=== PATIENT | male | born 1955 | race Caucasian/White ===

== ENCOUNTER 2016-12-13 09:03 | Emergency (ER) | payer OTHER ==
[~2016-12-13] VITALS: Ht 157.5 cm; Wt 135.7 kg
[~2016-12-13 09:03] MED LIST: ACET-1256 PO; ASCO500T3 PO; ASPEC325 PO; BUME2TAB3 PO; CALC600T68 PO; CARV3.122 PO; CHOL1000 PO; GLC/500 PO; HYDR-5688 PO; INSU1INJ16 SC; INSUINJ SC; LOSA50TA54 PO; METO5TAB25 PO; MULTTAB58 PO; PRIM50TA29 PO; SIMV40TA4 PO; SPIR25TA89 PO
[2016-12-13 09:12] VITALS: Ht 157.5 cm; Wt 135.7 kg
--- NOTE | 2016-12-13 09:52 | EMERGENCY ROOM VISIT NOTE ---
History Report prepared by Ramya: Cintia Callahan Under the Supervision of: Dr. Billy Reeves M.D. First contact with patient: 09:27 Chief Complaint: SHORTNESS OF BREATH Stated Complaint: PAIN AROUND PACEMAKER,SOB Nursing Triage Summary: Triage note: Pt reports since yesterday he has been short of breath. Pt reports intermittent chest heaviness x 1 week. History of Present Illness The patient is a 61 year old male who presents to the Emergency Room with complaints of intermittent left sided chest pain that began one week ago. He currently rates his discomfort as a 3/10 in severity and intermittently describes it as a heaviness and shooting pain. The patient states that he has a defibrillator and states that his pain is localized under his defibrillator. He states that when he burps or passes gas, his pain is slightly alleviated. The patient additionally associates shortness of breath intermittently that began this morning. He states that with the shortness of breath he has been experiencing neck pain. The patient states that he has been experiencing shakes , but denies any history of heavy drinking. He denies any recent weight gain, nausea, vomiting, headache, increased leg swelling, loss of consciousness, or heart palpitations. The patient states that he takes aspirin daily. He notes a history of high cholesterol, ischemic cardiomyopathy, hypertension, congestive heart failure, diabetes, pacemaker, a previous AR, previous heart catheterization, and a heart ablation. He denies taking anything for his discomfort. The patient denies any exposure to strange chemicals. He denies any personal or family history of blood clots and additionally denies any recent long travel. The patient denies his ICD firing recently. Source of History: patient Onset: one week ago Position: chest (left) Symptom Intensity: 3/10 Quality: other (heaviness, shooting) Timing: intermittent Modifying Factors (Relieving): other (burping or passing gas) Associated Symptoms: + SOB, + neck pain, No LOC, No headache, No nausea, No vomiting Review of Systems See HPI for pertinent positives & negatives. A total of 10 systems reviewed and were otherwise negative. Past Medical & Surgical Medical Problems: (1) Congestive heart failure (2) Diabetes (3) High cholesterol (4) Hypertension (5) Ischemic cardiomyopathy (6) Myocardial infarction Surgical Problems: (1) H/O cardiac catheterization (2) H/O cardiac radiofrequency ablation Family History FHx: cancer FHx: heart disease Hypertension Social History Smoking Status: Never Smoker Marital Status: Housing Status: lives with significant other Occupation Status: disabled Current/Historical Medications Scheduled Ascorbic Acid (Vitamin C), 1,000 MG PO DAILY Bumetanide (Bumex), 1 TAB PO TID Calcium Carbonate-Vitamin D (Calcium-Carb 600 + D), 1 TAB PO DAILY Carvedilol (Coreg), 1 TAB PO BID Cholecalciferol (Vitamin D3), 1 TAB PO DAILY Insulin Nph (Humulin-N), 55-60 UNITS SC TID Insulin Regular (Human) (Novolin R Relion), 10 UNITS SC TID Losartan Potassium (Cozaar), 50 MG PO DAILY Metformin Hcl (Glucophage), 500 MG PO BIDM Metolazone (Zaroxolyn), 5 MG PO DAILY Multiple Vitamin (Multivitamin), 1 TAB PO DAILY Primidone (Mysoline), 25 MG PO QPM Simvastatin (Zocor), 40 MG PO DAILY Spironolactone (Aldactone), 25 MG PO DAILY Scheduled PRN Acetaminophen (Tylenol), 500 MG PO BID PRN for prn Hydrocodone/Acetaminophen 5MG/325MG ([place] 5MG/325MG), 1 TABLET PO BID PRN for Pain Miscellaneous Medications Aspirin (Aspirin) Allergies Coded Allergies: Lisinopril (Unverified Allergy, Unknown, cough, 12/13/16) Physical Exam Vital Signs Date Time Temp Pulse Resp B/P Pulse Ox O2 Delivery O2 Flow Rate FiO2 12/13/16 12:36 36.6 94 20 139/90 94 12/13/16 11:20 89 18 139/90 95 Room Air 12/13/16 10:30 92 20 110/68 92 Room Air 12/13/16 09:50 91 12/13/16 09:12 36.6 89 20 149/77 94 Room Air Physical Exam GENERAL: Patient is in minimal distress, overweight. HEENT: No acute trauma, normocephalic atraumatic, mucous membranes moist, no nasal congestion, no scleral icterus. NECK: No stridor, no adenopathy, no meningismus, trachea is midline. LUNGS: Crackles at the bases of lungs. No dyspnea. No wheeze, no rhonchi. HEART: Regular rate and rhythm. No murmurs, rubs, gallops appreciated. ABDOMEN: Soft, nontender, bowel sounds positive, no masses appreciated, no peritonitis. BACK: No midline tenderness, no CVA tenderness EXTREMITIES: Normal motion all extremities, no cyanosis, no edema. NEUROLOGIC: Alert and oriented, no acute motor or sensory deficits, no focal weakness, cranial nerves grossly intact. SKIN: No rash, no jaundice, no diaphoresis. Medical Decision & Procedures ER Provider Diagnostic Interpretation: X ray results and stated below per my interpretation and radiologist interpretation. Other radiology results and stated below per my review and radiologist interpretation: CHEST ONE VIEW PORTABLE CLINICAL HISTORY: Chest pain. COMPARISON STUDY: Chest radiograph October 02, 2010. FINDINGS: A single lead left subclavian pacer/AICD is in place. There is no pneumothorax. No definite pleural effusion is identified. This study is compromised by suboptimal penetration. Moderate cardiomegaly is noted. There is no evidence for pulmonary edema. There is possible left lower lobe opacity. IMPRESSION: 1. Moderate cardiomegaly. No radiographic evidence of pulmonary edema. 2. Possible left lower lobe opacity. Short-term follow-up PA and lateral chest radiographs are recommended. Electronically signed by: Chinedu Kitchen M.D. 12/13/2016 10:26 AM Dictated Date/Time: 12/13/2016 10:[address] ANGIOGRAM OF THE CHEST CLINICAL HISTORY: Atypical chest pain. COMPARISON STUDY: Chest radiograph dated 12/13/2016. Abdominal CT dated 09/13/2014. TECHNIQUE: Following the IV administration of 118 cc of Optiray 320, CT angiogram of the chest was performed from the upper abdomen to the thoracic inlet utilizing the pulmonary embolus protocol. Images are reviewed in the axial, sagittal, and coronal planes. 3-D MIPS images are created and assessed. IV contrast was administered without complication. The examination is degraded by large body habitus, and by streak artifact from the body wall abutting the CT gantry. CT DOSE: 845.19 mGy.cm FINDINGS: Thyroid: Imaged portions of the thyroid gland are normal in size and attenuation. Thoracic aorta: There is mild atherosclerotic calcification of the thoracic aorta, which is normal in caliber and demonstrates standard 3-vessel arch anatomy. No dissection is seen. Pulmonary vasculature: The pulmonary trunk is normal in caliber. There are no filling defects identified in main, lobar, or segmental pulmonary branches to suggest pulmonary embolus. Heart: A single lead AICD is present in the left chest wall. The lead terminates in the right ventricle. The heart is enlarged and without pericardial effusion. The coronary arteries are densely calcified. Lungs and pleural spaces: Evaluation of the lung parenchyma is degraded by heart motion artifact. A small fat-containing Bochdalek hernia is noted at the right lung base. Dependent atelectasis is observed. Mild emphysematous change is identified. There is a 6 mm pleural-based nodule in the anterior left upper lobe seen on image #186. A 3 mm nodule in the right middle lobe seen on image #135 is unchanged in [address] Atelectasis versus scarring is present in the right middle lobe and lingula. Trachea and central airways are clear. Mediastinum: There is no mediastinal lymphadenopathy. Queenie: Clear. Axillae: There is no axillary lymphadenopathy. Upper abdomen: A small hiatal hernia is identified. The liver is enlarged and steatotic. The spleen is mildly enlarged measuring 13.7 cm in length. There is unchanged appearance of a 3.9 cm right adrenal nodule which contains components of macroscopic fat as compared to the [address] scan. Gynecomastia is noted. Skeletal structures: No lytic or blastic bony lesions are seen. Mild degenerative changes noted throughout the thoracic spine and in the shoulders. IMPRESSION: 1. There is no evidence of pulmonary embolus in the main, lobar, or segmental pulmonary arteries. 2. Cardiomegaly and AICD. 3. Emphysema. 4. There is no airspace consolidation or pleural effusion. 5. There is a 6 mm pleural-based nodule in the left upper lobe. This is pathologically indeterminant but low suspicion. Follow-up as per the Fleischner criteria. See below. 6. Hepatic steatosis and mild splenomegaly. 7. A 3.9 cm adrenal right adrenal nodule containing foci of macroscopic fat has not appreciably changed from the 09/13/2014 examination. 8. Additional findings as above. Please refer to below summary of Fleischner criteria recommendations for follow-up of incidental CT nodules (Susan To, Guidelines for management of small pulmonary nodules detected on CT scans: A statement from the Fleischner Society, Radiology 237: [phone].) Low Risk Patient: Minimal or no smoking or other known risk factors for malignancy <=4 mm: No follow-up needed. >4-6 mm: Initial follow-up CT at 12 months; if unchanged, no further follow-up. >6-8 mm: Initial follow-up CT at 6-12 months then at 18-24 months if no change. >8 mm: Follow-up CT at \R\3, 9, 24 months, or PET and/or biopsy. High Risk Patient: History of smoking or other known risk factors <=4 mm: Follow-up at 12 months; if unchanged, no further follow-up. >4-6 mm: Initial follow-up CT at 6-12 months then at 18-24 months if no change. >6-8 mm: Initial follow-up CT at 3-6 months then at 9-12 and 24 months if no change. >8 mm: Same as low risk patient. Note: Nodule size measured as average of length and width. Ground glass or partly solid nodules may require longer follow-up to exclude indolent adenocarcinoma. Electronically signed by: Williams Beavers M.D. 12/13/2016 11:17 AM Dictated Date/Time: 12/13/2016 11:09 AM Laboratory Results 12/13/16 09:45 Red Blood Count 5.16, Mean Corpuscular Volume 92.8, Mean Corpuscular Hemoglobin 32.2, Mean Corpuscular Hemoglobin Concent 34.7, Mean Platelet Volume 9.6, Neutrophils (%) (Auto) 66.9, Lymphocytes (%) (Auto) 19.1, Monocytes (%) (Auto) 11.6, Eosinophils (%) (Auto) 2.0, Basophils (%) (Auto) 0.1, Neutrophils # (Auto ) 5.26, Lymphocytes # (Auto) 1.50, Monocytes # (Auto) 0.91, Eosinophils # (Auto ) 0.16, Basophils # (Auto) 0.01 12/13/16 09:45 Test 12/13/16 09:45 12/13/16 11:32 White Blood Count 7.86 K/uL (4.8-10.8) Red Blood Count 5.16 M/uL (4.7-6.1) Hemoglobin 16.6 g/dL (14.0-18.0) Hematocrit 47.9 % (42-52) Mean Corpuscular Volume 92.8 fL (80-100) Mean Corpuscular Hemoglobin 32.2 pg (25-34) Mean Corpuscular Hemoglobin Concent 34.7 g/dl (32-36) Platelet Count 187 K/uL (130-400) Mean Platelet Volume 9.6 fL (7.4-10.4) Neutrophils (%) (Auto) 66.9 % Lymphocytes (%) (Auto) 19.1 % Monocytes (%) (Auto) 11.6 % Eosinophils (%) (Auto) 2.0 % Basophils (%) (Auto) 0.1 % Neutrophils # (Auto) 5.26 K/uL (1.4-6.5) Lymphocytes # (Auto) 1.50 K/uL (1.2-3.4) Monocytes # (Auto) 0.91 K/uL (0.11-0.59) Eosinophils # (Auto) 0.16 K/uL (0-0.5) Basophils # (Auto) 0.01 K/uL (0-0.2) RDW Standard Deviation 47.0 fL (36.4-46.3) RDW Coefficient of Variation 13.9 % (11.5-14.5) Immature Granulocyte % (Auto) 0.3 % Immature Granulocyte # (Auto) 0.02 K/uL (0.00-0.02) D-Dimer 940 ug/L FEU (0-500) Anion Gap 9.0 mmol/L (3-11) Est Creatinine Clear Calc Drug Dose 75.3 ml/min Estimated GFR () 69.2 Estimated GFR (Non- 59.7 BUN/Creatinine Ratio 19.5 (10-20) Calcium Level 8.9 mg/dl (8.5-10.1) Total Creatine Kinase 120 U/L (39-308) Creatine Kinase MB 0.9 ng/ml (0.5-3.6) Creatine Kinase MB Ratio 0.8 (0-3.0) Troponin I < 0.015 ng/ml (0-0.045) Beta-Hydroxybutyric Acid 4.04 mg/dL (0.2-2.81) Bedside Troponin I 0.000 ng/ml (0-0.045) Laboratory results as reviewed by me. Medications Administered Medications (Trade) Dose Ordered Sig/Emerson Route Start Time Stop Time Status Last Admin Dose Admin Sodium Chloride (Nss 500ml) 500 ml @ 999 mls/hr Q31M STAT IV 12/13/16 10:31 12/13/16 11:01 DC 12/13/16 10:31 999 MLS/HR ECG Indication: chest pain Rate (beats per minute): 92 Rhythm: normal sinus Findings: no acute ischemic change, no ectopy ED Course 0930: The patient was evaluated in room B9. A complete history and physical exam was performed. 1031: Ordered Sodium Chloride 500 ml @ 999 mls/hr IV. I reevaluated the patient and discussed the exam findings so far with him. He is agreeable to get the chest CT. 1121: I reevaluated the patient and he is not interested in staying in the hospital. He is agreeable to have a repeat troponin. 1220: I reevaluated the patient and he is resting comfortably. I discussed the exam findings with him and I discussed the treatment plan. He verbalized complete understanding and agreement. he is ready to go home. Medical Decision Differential: Cardiac Ischemia (STEMI, NSTEMI, Unstable Angina, etc), Aortic Dissection, Arrhythmia, Pulmonary Embolism, Pneumonia, Pneumothorax, MSK, Infectious, Pericarditis/Myocarditis, Esophageal Rupture, Gastrointestinal, amongst other pathologies entertained. 61 yr old male arrives with complaint of chest pain and shob. He notes sent by PCP due to not being able to get in for appointment. EKG without acute ischemia and trop x 2 negative. He has mild elevated dimer thus CT PE study which was negative for acute PE. Denying pain currently. He has multiple CAD risk factors that should probably result in him being brought in to hospital for extended cardiac rule out. Patient not interested in staying in hospital. I cautioned him that I could not rule out CAD and that he could have AR at home. He still wishes to go home and follow up with PCP. RTED if worsening or call 911. Stressed importance of PCP. Impression Primary Impression: Left sided chest pain Scribe Attestation The scribe's documentation has been prepared under my direction and personally reviewed by me in its entirety. I confirm that the note above accurately reflects all work, treatment, procedures, and medical decision making performed by me. Departure Information Dispostion Home / Self-Care Referrals Ravindra Fraga M.D. (PCP) Forms HOME CARE DOCUMENTATION FORM, IMPORTANT VISIT INFORMATION Patient Instructions Chest Pain - [facility], [place], My [facility] Additional Instructions Please follow up with your primary care provider in the next 24 hours. Return immediately if worsening symptoms or other concerns.
[2016-12-13 09:55] LABS: BASO % 0.1 %; BASO ABS # 0.01 K/uL (0-0.2); COMPLETE YES; HEMATOCRIT 47.9 % (42-52); IG% 0.3 %; LYMPH % 19.1 %; MEAN CELL VOLUME 92.8 fL (80-100); MEAN CORPUSCULAR HEMOGLOBIN 32.2 pg (25-34); MEAN CORPUSCULAR HGB CONC 34.7 g/dl (32-36); MEAN PLATELET VOLUME 9.6 fL (7.4-10.4); MONO % 11.6 %; NEUT % 66.9 %; PLATELET COUNT 187 K/uL (130-400); RED BLOOD COUNT 5.16 M/uL (4.7-6.1); WHITE BLOOD COUNT 7.86 K/uL (4.8-10.8)
[2016-12-13] MEDS ORDERED: ASPI325T45 PO (10:04)
[2016-12-13 10:11] LABS: BLOOD UREA NITROGEN 25 mg/dl (7-18); BUN/CREATININE RATIO 19.5 (10-20); CALCIUM 8.9 mg/dl (8.5-10.1); CARBON DIOXIDE 28 mmol/L (21-32); CHLORIDE 100 mmol/L (98-107); GLUCOSE 303 mg/dl (70-99); POTASSIUM 4.6 mmol/L (3.5-5.1); SODIUM 137 mmol/L (136-145)
[2016-12-13 10:21] LABS: BETA-HYDROXYBUTYRATE 4.04 mg/dL (0.2-2.81); CKMB/CK RATIO 0.8 (0-3.0)
--- NOTE | 2016-12-13 10:27 | DIAGNOSTIC IMAGING REPORT ---
CHEST ONE VIEW PORTABLE CLINICAL HISTORY: Chest pain. COMPARISON STUDY: Chest radiograph October 02, 2010. FINDINGS: A single lead left subclavian pacer/AICD is in place. There is no pneumothorax. No definite pleural effusion is identified. This study is compromised by suboptimal penetration. Moderate cardiomegaly is noted. There is no evidence for pulmonary edema. There is possible left lower lobe opacity. IMPRESSION: 1. Moderate cardiomegaly. No radiographic evidence of pulmonary edema. 2. Possible left lower lobe opacity. Short-term follow-up PA and lateral chest radiographs are recommended. Electronically signed by: Chinedu Kitchen M.D. 12/13/2016 10:26 AM Dictated Date/Time: 12/13/2016 10:24 AM
[2016-12-13] MEDS ORDERED: SODIUM CHLORIDE 0.9% 500ML 500 ML IV STA (10:31)
[2016-12-13] MEDS ORDERED: OPTIRAY 320 IV PRN (10:45)
--- NOTE | 2016-12-13 11:18 | DIAGNOSTIC IMAGING REPORT ---
CT ANGIOGRAM OF THE CHEST CLINICAL HISTORY: Atypical chest pain. COMPARISON STUDY: Chest radiograph dated 12/13/2016. Abdominal CT dated 09/13/2014. TECHNIQUE: Following the IV administration of 118 cc of Optiray 320, CT angiogram of the chest was performed from the upper abdomen to the thoracic inlet utilizing the pulmonary embolus protocol. Images are reviewed in the axial, sagittal, and coronal planes. 3-D MIPS images are created and assessed. IV contrast was administered without complication. The examination is degraded by large body habitus, and by streak artifact from the body wall abutting the CT gantry. CT DOSE: 845.19 mGy.cm FINDINGS: Thyroid: Imaged portions of the thyroid gland are normal in size and attenuation. Thoracic aorta: There is mild atherosclerotic calcification of the thoracic aorta, which is normal in caliber and demonstrates standard 3-vessel arch anatomy. No dissection is seen. Pulmonary vasculature: The pulmonary trunk is normal in caliber. There are no filling defects identified in main, lobar, or segmental pulmonary branches to suggest pulmonary embolus. Heart: A single lead AICD is present in the left chest wall. The lead terminates in the right ventricle. The heart is enlarged and without pericardial effusion. The coronary arteries are densely calcified. Lungs and pleural spaces: Evaluation of the lung parenchyma is degraded by heart motion artifact. A small fat-containing Bochdalek hernia is noted at the right lung base. Dependent atelectasis is observed. Mild emphysematous change is identified. There is a 6 mm pleural-based nodule in the anterior left upper lobe seen on image #186. A 3 mm nodule in the right middle lobe seen on image #135 is unchanged in [address] Atelectasis versus scarring is present in the right middle lobe and lingula. Trachea and central airways are clear. Mediastinum: There is no mediastinal lymphadenopathy. Queenie: Clear. Axillae: There is no axillary lymphadenopathy. Upper abdomen: A small hiatal hernia is identified. The liver is enlarged and steatotic. The spleen is mildly enlarged measuring 13.7 cm in length. There is unchanged appearance of a 3.9 cm right adrenal nodule which contains components of macroscopic fat as compared to the [address] scan. Gynecomastia is noted. Skeletal structures: No lytic or blastic bony lesions are seen. Mild degenerative changes noted throughout the thoracic spine and in the shoulders. IMPRESSION: 1. There is no evidence of pulmonary embolus in the main, lobar, or segmental pulmonary arteries. 2. Cardiomegaly and AICD. 3. Emphysema. 4. There is no airspace consolidation or pleural effusion. 5. There is a 6 mm pleural-based nodule in the left upper lobe. This is pathologically indeterminant but low suspicion. Follow-up as per the Fleischner criteria. See below. 6. Hepatic steatosis and mild splenomegaly. 7. A 3.9 cm adrenal right adrenal nodule containing foci of macroscopic fat has not appreciably changed from the 09/13/2014 examination. 8. Additional findings as above. Please refer to below summary of Fleischner criteria recommendations for follow-up of incidental CT nodules (Susan To, Guidelines for management of small pulmonary nodules detected on CT scans: A statement from the Fleischner Society, Radiology 237: [phone].) Low Risk Patient: Minimal or no smoking or other known risk factors for malignancy <=4 mm: No follow-up needed. >4-6 mm: Initial follow-up CT at 12 months; if unchanged, no further follow-up. >6-8 mm: Initial follow-up CT at 6-12 months then at 18-24 months if no change. >8 mm: Follow-up CT at \R\3, 9, 24 months, or PET and/or biopsy. High Risk Patient: History of smoking or other known risk factors <=4 mm: Follow-up at 12 months; if unchanged, no further follow-up. >4-6 mm: Initial follow-up CT at 6-12 months then at 18-24 months if no change. >6-8 mm: Initial follow-up CT at 3-6 months then at 9-12 and 24 months if no change. >8 mm: Same as low risk patient. Note: Nodule size measured as average of length and width. Ground glass or partly solid nodules may require longer follow-up to exclude indolent adenocarcinoma. Electronically signed by: Williams Beavers M.D. 12/13/2016 11:17 AM Dictated Date/Time: 12/13/2016 11:09 AM
[2016-12-13 12:36] VITALS: BP 139/90; PULSE 94; TEMP 36.6; O2SAT 94
[2017-03-09] MEDS ORDERED: CARV12.52 PO (12:53)
== END 2016-12-13 12:38 | disposition home or self-care (01) ==
LOC: C.EDB 09:05
DX: R07.9 Chest pain, unspecified (principal); I50.9 Heart failure, unspecified; I25.2 Old myocardial infarction; E11.9 Type 2 diabetes mellitus without complications; E78.00 Pure hypercholesterolemia, unspecified; I10 Essential (primary) hypertension; I25.5 Ischemic cardiomyopathy; Z95.810 Presence of automatic (implantable) cardiac defibrillator; Z79.4 Long term (current) use of insulin; Z79.899 Other long term (current) drug therapy

== ENCOUNTER 2016-12-27 10:54 | Emergency (ER) | payer OTHER ==
[~2016-12-27] VITALS: Ht 157.5 cm; Wt 130.0 kg
[~2016-12-27 10:54] MED LIST changes: -ASPEC325 PO; +ASPI325T45 PO
[2016-12-27 11:00] VITALS: TEMP 36.6; Ht 157.5 cm; Wt 130.0 kg
[2016-12-27] MEDS ORDERED: SODIUM CHLORIDE 0.9% 1000ML 1,000 ML IV STA (11:37)
--- NOTE | 2016-12-27 11:39 | EMERGENCY ROOM VISIT NOTE ---
History Report prepared by Ramya: Bradley Gomez Under the Supervision of: Dr. Anibal Laughlin D.O. First contact with patient: 11:06 Chief Complaint: ABDOMINAL PAIN Stated Complaint: ABD PAIN Nursing Triage Summary: lower abd pain for 2 days History of Present Illness The patient is a 61 year old male who presents to the Emergency Room with complaints of persistent lower abdominal pain for the past week. The pain is cramping nature. He also complains of intermittent sharp left lower abdominal pain. The patient has been constipated for three weeks. The patient saw his PCP one week ago and was started on MiraLAX. He has been eating and drinking okay. The patient has a prescription for pain medications which he hasn't taken in one month. The patient has never had constipation like this before. The patient denies fevers, chills, chest pain, nausea, vomiting, or blood in his stools. The patient denies eating any abnormal foods recently. The patient had a colonoscopy with Liam 3-4 years ago. He has never been diagnosed with diverticulitis. The patient still has his gallbladder and appendix. He has a history of diabetes and hypertension and also has a cardiac defibrillator. Source of History: patient Onset: one week Position: abdomen (lower) Quality: cramping Timing: other (persistent) Associated Symptoms: No chest pain, No chills, No fevers, No hematochezia, No nausea, No vomiting Note: Positive constipation. Review of Systems See HPI for pertinent positives & negatives. A total of 10 systems reviewed and were otherwise negative. Past Medical & Surgical Medical Problems: (1) Congestive heart failure (2) Diabetes (3) High cholesterol (4) Hypertension (5) Ischemic cardiomyopathy (6) Myocardial infarction Surgical Problems: (1) H/O cardiac catheterization (2) H/O cardiac radiofrequency ablation Family History FHx: cancer FHx: heart disease Hypertension Social History Smoking Status: Former Smoker Marital Status: Housing Status: lives with significant other Occupation Status: disabled Current/Historical Medications Scheduled Amoxicillin & Pot Clavulanate (Augmentin 875-125 mg), 875 MG PO BID Ascorbic Acid (Vitamin C), 1,000 MG PO DAILY Aspirin (Aspirin), 1 TAB PO DAILY Bumetanide (Bumex), 1 TAB PO DAILY Calcium Carbonate-Vitamin D (Calcium-Carb 600 + D), 1 TAB PO DAILY Carvedilol (Coreg), 1 TAB PO BID Cholecalciferol (Vitamin D3), 1 TAB PO DAILY Insulin Human NPH (Humulin N), 50 UNITS SQ BID Insulin Regular (Human) (Novolin R Relion), 30 UNITS SC BID Losartan Potassium (Cozaar), 50 MG PO DAILY Metformin Hcl (Glucophage), 500 MG PO BIDM Metolazone (Zaroxolyn), 5 MG PO DAILY Multiple Vitamin (Multivitamin), 1 TAB PO DAILY Pantoprazole (Protonix), 40 MG PO BID Primidone (Mysoline), 25 MG PO QPM Simvastatin (Zocor), 40 MG PO DAILY Spironolactone (Aldactone), 25 MG PO DAILY Scheduled PRN Acetaminophen (Tylenol), 500 MG PO BID PRN for prn Hydrocodone/Acetaminophen 5MG/325MG (Muddy 5MG/325MG), 1 TABLET PO BID PRN for Pain Allergies Coded Allergies: Lisinopril (Unverified Allergy, Unknown, cough, 12/27/16) Physical Exam Vital Signs Date Time Temp Pulse Resp B/P Pulse Ox O2 Delivery O2 Flow Rate FiO2 12/27/16 13:14 87 18 124/75 95 12/27/16 12:52 93 15 115/71 97 Room Air 12/27/16 11:00 36.6 92 16 148/86 96 Room Air Physical Exam GENERAL: Patient is awake, alert, and in no acute distress. Patient is resting comfortably and showing no signs of anxiety EYES: The conjunctivae are clear. The pupils are round and reactive. EARS, NOSE, MOUTH AND THROAT: The nose is without any evidence of any deformity. Mucous membranes are moist tongue is midline NECK: The neck is nontender and supple. RESPIRATORY: Normal respiratory effort is noted there is no evidence of wheezing rhonchi or rales CARDIOVASCULAR: Regular rate and rhythm noted there no murmurs rubs or gallops normal S1 normal S2 GASTROINTESTINAL: The abdomen is moderately distended but soft. Left lower quadrant tenderness to palpation, no guarding or rigidity noted. No inguinal masses were noted. MUSCULOSKELETAL/EXTREMITIES: There is no evidence of gross deformity full range of motion is noted in the hips and shoulders SKIN: There is no obvious evidence of any rash. There are no petechiae, pallor or cyanosis noted. NEUROLOGIC: Patient is awake alert and oriented x3, Medical Decision & Procedures ER Provider Diagnostic Interpretation: X-ray results as stated below per interpretation by me and the radiologist. ABDOMEN 2VIEW W/PA CHEST RTN CLINICAL HISTORY: Lower abdominal pain COMPARISON STUDY: Chest x-ray dated 12/13/2016 FINDINGS: The heart is enlarged. There is a left subclavian pacer/defibrillator present. There is no focal pulmonary consolidation. There is no free air. Erect and supine views the abdomen reveal no abnormally dilated loops of large or small bowel. There are scattered stool present throughout the colon. IMPRESSION: No evidence of bowel obstruction. No evidence of free air. Electronically signed by: Isreal Toth M.D. 12/27/2016 12:22 PM Dictated Date/Time: 12/27/2016 12:21 PM Laboratory Results 12/27/16 11:50 Red Blood Count 4.93, Mean Corpuscular Volume 89.7, Mean Corpuscular Hemoglobin 31.2, Mean Corpuscular Hemoglobin Concent 34.8, Mean Platelet Volume 9.2, Neutrophils (%) (Auto) 68.8, Lymphocytes (%) (Auto) 22.5, Monocytes (%) (Auto) 6.6, Eosinophils (%) (Auto) 1.7, Basophils (%) (Auto) 0.2, Neutrophils # (Auto) 6.34, Lymphocytes # (Auto) 2.08, Monocytes # (Auto) 0.61, Eosinophils # (Auto) 0.16, Basophils # (Auto) 0.02 12/27/16 11:50 Test 12/27/16 11:45 12/27/16 11:50 Urine Color YELLOW Urine Appearance CLEAR (CLEAR) Urine pH 5.5 (4.5-7.5) Urine Specific [place] 1.002 (1.000-1.030) Urine Protein NEG (NEG) Urine Glucose (UA) 1+ (NEG) Urine Ketones NEG (NEG) Urine Occult Blood NEG (NEG) Urine Nitrite NEG (NEG) Urine Bilirubin NEG (NEG) Urine Urobilinogen NEG (NEG) Urine Leukocyte Esterase NEG (NEG) White Blood Count 9.23 K/uL (4.8-10.8) Red Blood Count 4.93 M/uL (4.7-6.1) Hemoglobin 15.4 g/dL (14.0-18.0) Hematocrit 44.2 % (42-52) Mean Corpuscular Volume 89.7 fL (80-100) Mean Corpuscular Hemoglobin 31.2 pg (25-34) Mean Corpuscular Hemoglobin Concent 34.8 g/dl (32-36) Platelet Count 226 K/uL (130-400) Mean Platelet Volume 9.2 fL (7.4-10.4) Neutrophils (%) (Auto) 68.8 % Lymphocytes (%) (Auto) 22.5 % Monocytes (%) (Auto) 6.6 % Eosinophils (%) (Auto) 1.7 % Basophils (%) (Auto) 0.2 % Neutrophils # (Auto) 6.34 K/uL (1.4-6.5) Lymphocytes # (Auto) 2.08 K/uL (1.2-3.4) Monocytes # (Auto) 0.61 K/uL (0.11-0.59) Eosinophils # (Auto) 0.16 K/uL (0-0.5) Basophils # (Auto) 0.02 K/uL (0-0.2) RDW Standard Deviation 44.4 fL (36.4-46.3) RDW Coefficient of Variation 13.5 % (11.5-14.5) Immature Granulocyte % (Auto) 0.2 % Immature Granulocyte # (Auto) 0.02 K/uL (0.00-0.02) Anion Gap 10.0 mmol/L (3-11) Est Creatinine Clear Calc Drug Dose 73.4 ml/min Estimated GFR () 69.2 Estimated GFR (Non- 59.7 BUN/Creatinine Ratio 13.2 (10-20) Calcium Level 8.7 mg/dl (8.5-10.1) Total Bilirubin 0.6 mg/dl (0.2-1) Direct Bilirubin 0.2 mg/dl (0-0.2) Aspartate Amino Transf (AST/SGOT) 13 U/L (15-37) Alanine Aminotransferase (ALT/SGPT) 19 U/L (12-78) Alkaline Phosphatase 108 U/L (45-117) Total Protein 7.5 gm/dl (6.4-8.2) Albumin 3.2 gm/dl (3.4-5.0) Lipase 61 U/L (73-393) Laboratory results per my review. Medications Administered Medications (Trade) Dose Ordered Sig/[place] Route Start Time Stop Time Status Last Admin Dose Admin Sodium Chloride (Nss 1000ml) 1,000 ml @ 999 mls/hr Q1H1M STAT IV 12/27/16 11:37 12/27/16 12:37 DC 12/27/16 11:48 999 MLS/HR ED Course 1109:The patient was evaluated by my medical student. 1135: The patient was evaluated in room C4. A complete history and physical examination were performed. 1137: NSS 1000 ml @ 999 mls/hr. 1300: Reassessed the patient. Discussed the findings with him. He verbalized understanding and agreement of the treatment plan. The patient is ready for discharge. Medical Decision Prior records/ancillary studies reviewed. Triage Nursing notes reviewed. The patient's history was concerning for abdominal pain. Differential diagnosis: Etiologies such as appendicitis, diverticulitis, PUD, biliary pathology, UTI, pancreatitis, obstruction, mesenteric ischemia, aortic pathology, infections, inflammatory bowel disease, renal colic, as well as others were entertained. The patient is a 61-year-old male who presented to the emergency department for an evaluation of left sided abdominal pain and constipation. The patient did not have a physical exam consistent with an acute surgical abdomen but I do feel was possible he is suffering from diverticulitis. I discussed the patient' s laboratory and radiographic studies with him. He was treated with IV fluids in the emergency department. He was encouraged to rest and avoid any strenuous activity. He was encouraged to call his primary care physician to schedule a follow-up appointment. He was also encouraged to continue all medications as prescribed and return to the emergency department immediately if symptoms change worsen or the need arises. The patient was started on antibiotics for presumed diverticulitis. He was encouraged to return if he develop any worsening symptoms such as severe pain high fever rigid abdomen or if need arises. Impression Primary Impression: LLQ abdominal pain Additional Impression: Constipation Scribe Attestation The scribe's documentation has been prepared under my direction and personally reviewed by me in its entirety. I confirm that the note above accurately reflects all work, treatment, procedures, and medical decision making performed by me. Departure Information Dispostion Home / Self-Care Prescriptions Amoxicillin & Pot Clavulanate (Augmentin 875-125 mg) 1 Tab Tab 875 MG PO BID for 7 Days, #20 TAB Prov: Anibal Laughlin, DO 12/27/16 Referrals Ravindra Fraga M.D. (PCP) Forms Call Back Authorization, HOME CARE DOCUMENTATION FORM, IMPORTANT VISIT INFORMATION Patient Instructions ED Abd Pain Unkn Cause Male, [facility] Additional Instructions Call your primary care physician to schedule a follow-up appointment for tomorrow. Drink plenty of clear liquids. Rest and avoid any strenuous activity. Continue all medications as prescribed. If symptoms worsen U may require further studies such as a CT of her abdomen and pelvis to evaluate the pain further. Return to the emergency department if he develop worsening symptoms such as worsening pain high fever rigid abdomen or if need arises. Problem Qualifiers Additional Impression: Constipation Constipation type: unspecified constipation type Qualified Codes: K59.00 - Constipation, unspecified
[2016-12-27 12:02] LABS: URINE APPEARANCE CLEAR (CLEAR); URINE BILIRUBIN NEG (NEG); URINE COLOR YELLOW; URINE NITRITE NEG (NEG); URINE PH 5.5 (4.5-7.5); URINE SPECIFIC GRAVITY 1.002 (1.000-1.030); UROBILINOGEN NEG (NEG)
[2016-12-27 12:02] LABS: BASO % 0.2 %; BASO ABS # 0.02 K/uL (0-0.2); COMPLETE YES; EOS % 1.7 %; HEMATOCRIT 44.2 % (42-52); IG% 0.2 %; LYMPH % 22.5 %; LYMPH ABS # 2.08 K/uL (1.2-3.4); MEAN CELL VOLUME 89.7 fL (80-100); MEAN CORPUSCULAR HEMOGLOBIN 31.2 pg (25-34); MEAN CORPUSCULAR HGB CONC 34.8 g/dl (32-36); MEAN PLATELET VOLUME 9.2 fL (7.4-10.4); MONO % 6.6 %; NEUT % 68.8 %; PLATELET COUNT 226 K/uL (130-400); RED BLOOD COUNT 4.93 M/uL (4.7-6.1); WHITE BLOOD COUNT 9.23 K/uL (4.8-10.8)
[2016-12-27 12:07] LABS: MANUAL MICROSCOPIC REQUIRED? NO; REVIEW REQ? NO
--- NOTE | 2016-12-27 12:23 | DIAGNOSTIC IMAGING REPORT ---
ABDOMEN 2VIEW W/PA CHEST RTN CLINICAL HISTORY: Lower abdominal pain COMPARISON STUDY: Chest x-ray dated 12/13/2016 FINDINGS: The heart is enlarged. There is a left subclavian pacer/defibrillator present. There is no focal pulmonary consolidation. There is no free air. Erect and supine views the abdomen reveal no abnormally dilated loops of large or small bowel. There are scattered stool present throughout the colon. IMPRESSION: No evidence of bowel obstruction. No evidence of free air. Electronically signed by: Isreal Toth M.D. 12/27/2016 12:22 PM Dictated Date/Time: 12/27/2016 12:21 PM
[2016-12-27 12:24] LABS: BUN/CREATININE RATIO 13.2 (10-20); CALCIUM 8.7 mg/dl (8.5-10.1); CREATININE 1.3 mg/dl (0.60-1.40)
[2016-12-27] MEDS ORDERED: INSHNI SQ (12:32)
[2016-12-27] MEDS ORDERED: PANT1TAB48 PO (12:35)
[2016-12-27] MEDS ORDERED: AMOX875T PO (12:59)
[2016-12-27 13:14] VITALS: BP 124/75; PULSE 87; O2SAT 95
[2017-03-09] MEDS ORDERED: CARV12.52 PO (12:53)
== END 2016-12-27 13:15 | disposition home or self-care (01) ==
LOC: C.EDB 10:56 → C.EDC 13:15
DX: R10.32 Left lower quadrant pain (principal); K59.00 Constipation, unspecified; E11.9 Type 2 diabetes mellitus without complications; I11.0 Hypertensive heart disease with heart failure; I50.9 Heart failure, unspecified; I25.2 Old myocardial infarction; E78.00 Pure hypercholesterolemia, unspecified; I25.5 Ischemic cardiomyopathy; Z79.899 Other long term (current) drug therapy; Z79.4 Long term (current) use of insulin; Z79.82 Long term (current) use of aspirin; Z95.810 Presence of automatic (implantable) cardiac defibrillator; Z87.891 Personal history of nicotine dependence; Z82.49 Family history of ischemic heart disease and other diseases of the circulatory system

== ENCOUNTER → 2017-02-27 | Outpatient (CLI) | payer OTHER ==
[~2017-02-27] MED LIST changes: +CARV12.52 PO; +CEPH500C PO; +CLIN300C2 PO; +DXY100 PO; +INSHNI SQ; +INSU1.2I SQ; +INSU70IN2 SC; -INSUINJ SC; +NVLGI/PEN SQ; +NVLNI SQ; +PANT1TAB48 PO; +SULF800T23 PO; +TRAM-10 PO
[2017-02-27 11:23] LABS: BLOOD UREA NITROGEN 19 mg/dl (7-18); BUN/CREATININE RATIO 17.1 (10-20); CALCIUM 8.9 mg/dl (8.5-10.1); CARBON DIOXIDE 30 mmol/L (21-32); CHLORIDE 101 mmol/L (98-107); GLUCOSE 275 mg/dl (70-99); POTASSIUM 4.3 mmol/L (3.5-5.1); SODIUM 139 mmol/L (136-145)
[2017-02-27 12:20] LABS: ESTIMATED AVERAGE GLUCOSE 189 mg/dl; HA1C FLAG Normal (Normal)
== END | disposition home or self-care (01) ==
LOC: C.LABBC 08:09
PROVIDERS: ATTEND Internal Medicine Geriatric Medicine
DX: E11.21 Type 2 diabetes mellitus with diabetic nephropathy (principal)

== ENCOUNTER 2017-03-09 12:21 | Emergency (ER) | payer OTHER ==
[~2017-03-09] VITALS: Ht 157.5 cm; Wt 128.9 kg
[~2017-03-09 12:21] MED LIST changes: -ACET-1256 PO; -ASPI325T45 PO; -BUME2TAB3 PO; -CARV12.52 PO; -CEPH500C PO; -CLIN300C2 PO; -DXY100 PO; -GLC/500 PO; -INSU1.2I SQ; -INSU70IN2 SC; -LOSA50TA54 PO; -MULTTAB58 PO; -NVLGI/PEN SQ; -NVLNI SQ; -PANT1TAB48 PO; -PRIM50TA29 PO; -SIMV40TA4 PO; -SPIR25TA89 PO; -SULF800T23 PO; -TRAM-10 PO
[2017-03-09 12:24] VITALS: TEMP 36.8; Ht 157.5 cm; Wt 128.9 kg
[2017-03-09] MEDS ORDERED: INSU70IN2 SC (12:53)
[2017-03-09] MEDS ORDERED: OXYCODONE HCL IR 5 MG TAB (IMMEDIATE RELEASE) PO STA (12:55)
--- NOTE | 2017-03-09 13:45 | DIAGNOSTIC IMAGING REPORT ---
LEFT KNEE 2 VIEWS HISTORY: Left leg pain. COMPARISON: None. FINDINGS: Diffuse subcutaneous edema most notable along the lateral aspect of the left lower leg. No acute fracture identified within the left tibia or fibula. Old healed fractures within the proximal tibia and patella. No change in the lateral subluxation of the tibia relation to the femur which measures up to 2 cm. There is advanced degenerative changes within the left knee. No radiopaque foreign bodies. IMPRESSION: 1. No acute fracture or dislocation within the left lower leg. 2. Diffuse subcutaneous edema. 3. Advanced degenerative changes and chronic lateral subluxation of the left knee, unchanged. Electronically signed by: Ruben Godinez M.D. 03/09/2017 1:43 PM Dictated Date/Time: 03/09/2017 1:40 PM
--- NOTE | 2017-03-09 15:30 | DIAGNOSTIC IMAGING REPORT ---
ULTRASOUND LEFT LOWER EXTREMITY VENOUS CLINICAL HISTORY: Left leg pain and swelling. COMPARISON STUDY: Bilateral lower extremity venous ultrasound dated 07/10/2011. TECHNIQUE: Real-time, grayscale, and color Doppler sonography of the deep veins of the left lower extremity was performed from the inguinal crease to the calf. Compression and augmentation were utilized. FINDINGS: There is no sonographic evidence of deep venous thrombosis identified in the left lower extremity. The common femoral, superficial femoral, and popliteal veins are patent and normally compressible. The greater saphenous vein and the profunda femoris vein at the junction with the common femoral vein are clear. The visualized calf veins are patent. IMPRESSION: There is no sonographic evidence of deep venous thrombosis identified in the left lower extremity. Electronically signed by: Williams Beavers M.D. 03/09/2017 3:28 PM Dictated Date/Time: 03/09/2017 3:28 PM
--- NOTE | 2017-03-09 15:31 | DIAGNOSTIC IMAGING REPORT ---
ULTRASOUND LEFT LOWER EXTREMITY NONVASCULAR CLINICAL HISTORY: Left leg injury. Pain and swelling. COMPARISON STUDY: Radiographs the left tibia and fibula dated 03/09/2017. FINDINGS: Real-time, grayscale, and color flow sonography of the soft tissues of the left calf is performed dedicated study of interest. There is subcutaneous soft tissue edema and trace subcutaneous fluid identified at the site of interest. No organized fluid collection/hematoma is seen. IMPRESSION: There is subcutaneous soft tissue edema and trace fluid seen at the site of interest in the left calf. No organized collection/hematoma is identified. Electronically signed by: Williams Beavers M.D. 03/09/2017 3:30 PM Dictated Date/Time: 03/09/2017 3:28 PM
[2017-03-09] MEDS ORDERED: CEFTRIAXONE SOD INJ 1 GM ADDVIAL IV STA (15:51)
[2017-03-09] MEDS ORDERED: SULFAMETHOXAZOLE/TRIMETHOPRIM DS 800/160MG TAB PO ONE (16:00)
[2017-03-09] MEDS ORDERED: SULF800T23 PO (16:08)
[2017-03-09] MEDS ORDERED: CEPH500C PO (16:08)
[2017-03-09 16:23] LABS: BASO % 0.1 %; BASO ABS # 0.01 K/uL (0-0.2); COMPLETE YES; EOS % 1.4 %; HEMATOCRIT 44.8 % (42-52); IG% 0.3 %; LYMPH % 28.6 %; LYMPH ABS # 2.47 K/uL (1.2-3.4); MEAN CELL VOLUME 92.8 fL (80-100); MEAN CORPUSCULAR HEMOGLOBIN 31.7 pg (25-34); MEAN CORPUSCULAR HGB CONC 34.2 g/dl (32-36); MEAN PLATELET VOLUME 9.2 fL (7.4-10.4); NEUT % 57.6 %; PLATELET COUNT 232 K/uL (130-400); RED BLOOD COUNT 4.83 M/uL (4.7-6.1); WHITE BLOOD COUNT 8.65 K/uL (4.8-10.8)
[2017-03-09] MEDS ORDERED: MoRPHine SULFATE 4 MG/ML 1 ML CARP\\VIAL IV STA (16:34)
[2017-03-09 16:39] LABS: BUN/CREATININE RATIO 18.7 (10-20); CALCIUM 8.7 mg/dl (8.5-10.1); CREATININE 0.97 mg/dl (0.60-1.40)
--- NOTE | 2017-03-09 17:05 | EMERGENCY ROOM VISIT NOTE ---
History First contact with patient: 12:43 Chief Complaint: LEG PAIN,LEG INJURY Stated Complaint: L LEG PAIN, POSSIBLE CLOT History of Present Illness The patient is a 61 year old male who presents to the Emergency Room with complaints of an injury to his left posterior leg. The patient reports that he fell off of a stool on Saturday, and the stool caught between his left buttock and calf. She now reports significant swelling and redness of the calf. She reports that the first couple of steps causes a discomfort, but then the pain eventually wears off. He has noticed swelling of the calf as well. He denies any back pain or foot pain. He also denies any paresthesias or numbness of the left lower extremity. He currently rates his discomfort a 5 out of 10. Review of Systems 10 system review was performed and was negative except for pertinent positives and negatives as indicated in history of present illness Past Medical/Surgical History Medical Problems: (1) Congestive heart failure (2) Diabetes (3) High cholesterol (4) Hypertension (5) Ischemic cardiomyopathy (6) Myocardial infarction Surgical Problems: (1) H/O cardiac catheterization (2) H/O cardiac radiofrequency ablation Family History FHx: cancer FHx: heart disease Hypertension Social History Smoking Status: Former Smoker Alcohol Use: occasionally Marital Status: Occupation Status: disabled Current/Historical Medications Scheduled Ascorbic Acid (Vitamin C), 1,000 MG PO DAILY Aspirin (Aspirin), 1 TAB PO DAILY Bumetanide (Bumex), 1 TAB PO DAILY Calcium Carbonate-Vitamin D (Calcium-Carb 600 + D), 1 TAB PO DAILY Carvedilol (Coreg), 12.5 MG PO BID Cephalexin Monohydrate (Keflex), 500 MG PO QID Cholecalciferol (Vitamin D3), 1 TAB PO DAILY Insulin Isophan/Regular (Novolin 70/30), 10 UNITS SC TID Insulin Regular (Human) (Novolin R Relion), 30 UNITS SC BID Losartan Potassium (Cozaar), 50 MG PO DAILY Metformin Hcl (Glucophage), 500 MG PO BIDM Multiple Vitamin (Multivitamin), 1 TAB PO DAILY Pantoprazole (Protonix), 40 MG PO BID Primidone (Mysoline), 25 MG PO QPM Simvastatin (Zocor), 40 MG PO DAILY Spironolactone (Aldactone), 25 MG PO DAILY Sulfa/Trimethoprim (Bactrim Ds 800MG/160MG), 1 TAB PO BID Scheduled PRN Acetaminophen (Tylenol), 500 MG PO BID PRN for prn Hydrocodone/Acetaminophen 5MG/325MG ([place] 5MG/325MG), 1 TABLET PO BID PRN for Pain Allergies Coded Allergies: Lisinopril (Unverified Allergy, Unknown, cough, 03/09/17) Physical Exam Vital Signs Date Time Temp Pulse Resp B/P Pulse Ox O2 Delivery O2 Flow Rate FiO2 03/09/17 16:25 91 18 140/72 96 Room Air 03/09/17 14:50 97 16 151/78 97 Room Air 03/09/17 12:24 36.8 85 20 133/75 96 Room Air Physical Exam CONSTITUTIONAL: Healthy and well nourished. Alert and oriented X 3 with positive affect. Patient does not appear in any acute distress. HEENT: Normocephalic, atraumatic. Pupils equal, round and reactive. NECK: Full active range of motion without discomfort. RESPIRATORY: Clear to auscultation bilaterally with no wheezing, crackles, rhonchi or stridor. CARDIOVASCULAR: Regular rate and rhythm with no murmurs, rubs or gallops. MUSCULOSKELETAL: Examination of the left lower extremity shows mild erythema of the posterior lateral leg. It is also tender to palpation with increased warmth. The patient has no tenderness to palpation through the popliteal space or hamstrings. He has no tenderness to palpation about the ankle. Pedal pulses are intact. INTEGUMENTARY: No rash or other significant dermatologic conditions noted. NEUROLOGIC: Left foot and toes are sensory intact. Medical Decision & Procedures ER Provider Diagnostic Interpretation: My interpretation of left leg x-rays does not show any acute fractures. Radiologist report is as follows: LEFT KNEE 2 VIEWS HISTORY: Left leg pain. COMPARISON: None. FINDINGS: Diffuse subcutaneous edema most notable along the lateral aspect of the left lower leg. No acute fracture identified within the left tibia or fibula. Old healed fractures within the proximal tibia and patella. No change in the lateral subluxation of the tibia relation to the femur which measures up to 2 cm. There is advanced degenerative changes within the left knee. No radiopaque foreign bodies. IMPRESSION: 1. No acute fracture or dislocation within the left lower leg. 2. Diffuse subcutaneous edema. 3. Advanced degenerative changes and chronic lateral subluxation of the left knee, unchanged. Venous ultrasound of the left lower extremity was negative for DVT. Radiologist report is as follows: ULTRASOUND LEFT LOWER EXTREMITY VENOUS CLINICAL HISTORY: Left leg pain and swelling. COMPARISON STUDY: Bilateral lower extremity venous ultrasound dated 07/10/2011. TECHNIQUE: Real-time, grayscale, and color Doppler sonography of the deep veins of the left lower extremity was performed from the inguinal crease to the calf. Compression and augmentation were utilized. FINDINGS: There is no sonographic evidence of deep venous thrombosis identified in the left lower extremity. The common femoral, superficial femoral, and popliteal veins are patent and normally compressible. The greater saphenous vein and the profunda femoris vein at the junction with the common femoral vein are clear. The visualized calf veins are patent. IMPRESSION: There is no sonographic evidence of deep venous thrombosis identified in the left lower extremity. Nonvascular ultrasound of the left lower extremity shows a small amount of trace fluid in the subcutaneous space with no well-defined fluid collection. Radiologist report is as follows: ULTRASOUND LEFT LOWER EXTREMITY NONVASCULAR CLINICAL HISTORY: Left leg injury. Pain and swelling. COMPARISON STUDY: Radiographs the left tibia and fibula dated 03/09/2017. FINDINGS: Real-time, grayscale, and color flow sonography of the soft tissues of the left calf is performed dedicated study of interest. There is subcutaneous soft tissue edema and trace subcutaneous fluid identified at the site of interest. No organized fluid collection/hematoma is seen. IMPRESSION: There is subcutaneous soft tissue edema and trace fluid seen at the site of interest in the left calf. No organized collection/hematoma is identified. Laboratory Results 03/09/17 16:10 Red Blood Count 4.83, Mean Corpuscular Volume 92.8, Mean Corpuscular Hemoglobin 31.7, Mean Corpuscular Hemoglobin Concent 34.2, Mean Platelet Volume 9.2, Neutrophils (%) (Auto) 57.6, Lymphocytes (%) (Auto) 28.6, Monocytes (%) (Auto) 12.0, Eosinophils (%) (Auto) 1.4, Basophils (%) (Auto) 0.1, Neutrophils # (Auto ) 4.98, Lymphocytes # (Auto) 2.47, Monocytes # (Auto) 1.04, Eosinophils # (Auto ) 0.12, Basophils # (Auto) 0.01 03/09/17 16:10 Test 03/09/17 14:51 03/09/17 16:10 Bedside Glucose 54 mg/dl (70-99) White Blood Count 8.65 K/uL (4.8-10.8) Red Blood Count 4.83 M/uL (4.7-6.1) Hemoglobin 15.3 g/dL (14.0-18.0) Hematocrit 44.8 % (42-52) Mean Corpuscular Volume 92.8 fL (80-100) Mean Corpuscular Hemoglobin 31.7 pg (25-34) Mean Corpuscular Hemoglobin Concent 34.2 g/dl (32-36) Platelet Count 232 K/uL (130-400) Mean Platelet Volume 9.2 fL (7.4-10.4) Neutrophils (%) (Auto) 57.6 % Lymphocytes (%) (Auto) 28.6 % Monocytes (%) (Auto) 12.0 % Eosinophils (%) (Auto) 1.4 % Basophils (%) (Auto) 0.1 % Neutrophils # (Auto) 4.98 K/uL (1.4-6.5) Lymphocytes # (Auto) 2.47 K/uL (1.2-3.4) Monocytes # (Auto) 1.04 K/uL (0.11-0.59) Eosinophils # (Auto) 0.12 K/uL (0-0.5) Basophils # (Auto) 0.01 K/uL (0-0.2) RDW Standard Deviation 45.9 fL (36.4-46.3) RDW Coefficient of Variation 13.6 % (11.5-14.5) Immature Granulocyte % (Auto) 0.3 % Immature Granulocyte # (Auto) 0.03 K/uL (0.00-0.02) Erythrocyte Sedimentation Rate 42 mm/hr (0-14) Anion Gap 6.0 mmol/L (3-11) Est Creatinine Clear Calc Drug Dose 97.8 ml/min Estimated GFR () 98.6 Estimated GFR (Non- 85.1 BUN/Creatinine Ratio 18.7 (10-20) Calcium Level 8.7 mg/dl (8.5-10.1) The above labs were reviewed. Medications Administered Medications (Trade) Dose Ordered Sig/Emerson Route Start Time Stop Time Status Last Admin Dose Admin Oxycodone HCl (Roxicodone Immediate Rel Tab) 5 mg NOW STAT PO 03/09/17 12:55 03/09/17 12:58 DC 03/09/17 12:55 5 MG Ceftriaxone Sodium (Rocephin Inj) 1 gm NOW STAT IV 03/09/17 15:51 03/09/17 15:54 DC 03/09/17 16:20 1 GM Trimethoprim/ Sulfamethoxazole (Septra Ds 800/ 160MG Tab) 1 tab NOW ONCE PO 03/09/17 16:00 03/09/17 16:01 DC 03/09/17 16:20 1 TAB Morphine Sulfate (MoRPHine SULFATE INJ) 4 mg NOW STAT IV 03/09/17 16:34 03/09/17 16:35 DC 03/09/17 16:34 4 MG ED Course Patient history and physical exam were performed. Nurse's notes were reviewed. Vital signs were reviewed and were normal. Patient was administered OxyIR 5 mg for pain. X-rays of the left leg did not show any acute bony injuries. While awaiting ultrasound studies, a bedside glucose was drawn and was low at 52. The patient was given crackers at his request. He refused any additional special diet request. Venous ultrasound did not show any evidence for DVT. Nonvascular ultrasound of the left leg is suggestive of subcutaneous fluid without any organized collection. Because of the concern for cellulitis with erythema and increased warmth to palpation, I did suggest IV antibiotics. The patient was in agreement. IV access was established, and labs were drawn. The patient received Rocephin 1 g IV infusion, and Bactrim DS orally. Review of labs does not show any leukocytosis or other major electrolyte abnormalities except for a low glucose. His bedside glucose was 54, and random glucose after receiving crackers was 72. It report feeling better. The patient will be provided prescriptions for Keflex and Bactrim DS. He was instructed to return in 48 hours for recheck, sooner with any progressively worsening redness, swelling, pain or fever. He was encouraged to take ibuprofen and Tylenol as needed for baseline pain relief. Review of the [place] Prescription Drug Monitoring Program shows that the patient filled a prescription for hydrocodone's , dispense #60 on 11/01/16, prescribed by Dr. Ravindra Fraga. He did require an additional morphine 4 mg IVP prior to discharge, voiced understanding of all discharge instructions, and rated his discomfort a 3 out of 10 at the time of discharge. [place] Drug Monitoring Program Search Results: patient reviewed within database, no issues identified Impression Primary Impression: Cellulitis of left leg Departure Information Prescriptions Sulfa/Trimethoprim (Bactrim Ds 800MG/160MG) Tab 1 TAB PO BID for 7 Days, #14 TAB Prov: Tj Webb PA 03/09/17 Cephalexin Monohydrate (Keflex) 500 Mg Cap 500 MG PO QID for 7 Days, #28 CAP Prov: Tj Webb PA 03/09/17 Referrals Ravindra Fraga M.D. (PCP) Patient Instructions Former[facility]
[2017-03-09 17:40] VITALS: BP 118/67; PULSE 87; O2SAT 97
[2017-09-26] MEDS ORDERED: BUME2TAB3 PO (09:54)
[2017-09-26] MEDS ORDERED: ASPI325T45 PO (10:04)
[2017-09-26] MEDS ORDERED: PRIM50TA29 PO (11:23)
[2017-09-26] MEDS ORDERED: PANT1TAB48 PO (12:35)
[2017-09-26] MEDS ORDERED: CARV12.52 PO (12:53)
[2017-09-26] MEDS ORDERED: ACET-1256 PO (13:29)
[2017-09-26] MEDS ORDERED: LOSA50TA54 PO (13:29)
[2017-09-26] MEDS ORDERED: NVLGI/PEN SQ (15:11)
[2017-09-26] MEDS ORDERED: INSU1.2I SQ (15:11)
[2017-09-26] MEDS ORDERED: SPIR25TA89 PO (20:26)
[2017-09-26] MEDS ORDERED: SIMV40TA4 PO (20:26)
[2017-09-26] MEDS ORDERED: GLC/500 PO (20:26)
[2017-09-26] MEDS ORDERED: MULTTAB58 PO (20:26)
== END 2017-03-09 17:20 | disposition home or self-care (01) ==
LOC: C.EDB 12:21 → C.EDD 17:20
DX: L03.116 Cellulitis of left lower limb (principal); W07.XXXA Fall from chair, initial encounter; I50.9 Heart failure, unspecified; E11.9 Type 2 diabetes mellitus without complications; E78.00 Pure hypercholesterolemia, unspecified; I25.5 Ischemic cardiomyopathy; I25.2 Old myocardial infarction; Z80.9 Family history of malignant neoplasm, unspecified; Z82.49 Family history of ischemic heart disease and other diseases of the circulatory system; Z87.891 Personal history of nicotine dependence; Z79.82 Long term (current) use of aspirin; Z79.899 Other long term (current) drug therapy

== ENCOUNTER 2017-03-11 20:19 | Inpatient (IN) | payer OTHER ==
[~2017-03-11] VITALS: Ht 157.5 cm; Wt 123.1 kg
[~2017-03-11 20:19] MED LIST changes: -CARV3.122 PO; +CEPH500C PO; -INSHNI SQ; +INSU70IN2 SC; -METO5TAB25 PO; +SULF800T23 PO
[2017-03-11] MEDS ORDERED: CEFTRIAXONE SOD INJ 1 GM ADDVIAL IV STA (20:41)
[2017-03-11] MEDS ORDERED: OXYCODONE/ACETAMINOPHEN 5-325 TAB PO ONE (20:45)
--- NOTE | 2017-03-11 20:47 | EMERGENCY ROOM VISIT NOTE ---
History Report prepared by Ramya: Naveen Bowles Under the Supervision of: Dr. Anibal Laughlin D.O. First contact with patient: 20:31 Chief Complaint: LEG PAIN,LEG INJURY Stated Complaint: LEFT LEG PAIN AND SWELLING History of Present Illness The patient is a 61 year old male who presents to the Emergency Room with complaints of persistent left leg pain that started a week ago. The patient fell off of a stool and bumped the back of his calf on the stool. The patient presented to the ED for further evaluation a few days ago. He was given IV antibiotics and discharged on Bactrim and Keflex. The patient also had an ultrasound to check for blood clots which was negative. The patient presented to his family doctor today because his discomfort wasn't getting any better. She radha a line on his leg and recommended he present to the ED if his swelling got any worse. The patient's leg foreman swelled more since earlier today, so he presented to the ED for further evaluation. The patient denies upper leg pain, ankle pain, fevers, chills, nausea, or vomiting. Source of History: patient Onset: a week ago Position: leg (left) Timing: other (persistent) Associated Symptoms: No fevers, No nausea, No vomiting Note: Other associated symptoms: leg swelling Denies: upper leg pain, ankle pain Review of Systems See HPI for pertinent positives & negatives. A total of 10 systems reviewed and were otherwise negative. Past Medical & Surgical Medical Problems: (1) Congestive heart failure (2) Diabetes (3) Failure of outpatient treatment (4) High cholesterol (5) Hypertension (6) Ischemic cardiomyopathy (7) Left leg cellulitis (8) Myocardial infarction Surgical Problems: (1) H/O cardiac catheterization (2) H/O cardiac radiofrequency ablation Family History FHx: cancer FHx: heart disease Hypertension Social History Smoking Status: Never Smoker Alcohol Use: occasionally Marital Status: Occupation Status: disabled Current/Historical Medications Scheduled Ascorbic Acid (Vitamin C), 1,000 MG PO DAILY Aspirin (Aspirin), 1 TAB PO DAILY Bumetanide (Bumex), 1 TAB PO DAILY Calcium Carbonate-Vitamin D (Calcium-Carb 600 + D), 1 TAB PO DAILY Carvedilol (Coreg), 12.5 MG PO BID Cephalexin Monohydrate (Keflex), 500 MG PO QID Cholecalciferol (Vitamin D3), 1 TAB PO DAILY Insulin Isophan/Regular (Novolin 70/30), 10 UNITS SC TID Insulin Regular (Human) (Novolin R Relion), 30 UNITS SC BID Losartan Potassium (Cozaar), 50 MG PO DAILY Metformin Hcl (Glucophage), 500 MG PO BIDM Multiple Vitamin (Multivitamin), 1 TAB PO DAILY Pantoprazole (Protonix), 40 MG PO BID Primidone (Mysoline), 25 MG PO QPM Simvastatin (Zocor), 40 MG PO DAILY Spironolactone (Aldactone), 25 MG PO DAILY Sulfa/Trimethoprim (Bactrim Ds 800MG/160MG), 1 TAB PO BID Scheduled PRN Acetaminophen (Tylenol), 500 MG PO BID PRN for prn Hydrocodone/Acetaminophen 5MG/325MG ([place] 5MG/325MG), 1 TABLET PO BID PRN for Pain Allergies Coded Allergies: Lisinopril (Unverified Allergy, Unknown, cough, 03/11/17) Physical Exam Vital Signs Date Time Temp Pulse Resp B/P Pulse Ox O2 Delivery O2 Flow Rate FiO2 03/11/17 23:30 97 03/11/17 23:06 97 18 129/94 98 Room Air 03/11/17 22:14 92 18 116/61 94 Room Air 03/11/17 21:21 95 18 129/78 96 Room Air 03/11/17 20:26 36.7 103 24 120/60 94 Room Air Physical Exam GENERAL: Patient is awake, alert, and in no acute distress. Patient is resting comfortably and showing no signs of anxiety EYES: The conjunctivae are clear. The pupils are round and reactive. EARS, NOSE, MOUTH AND THROAT: The nose is without any evidence of any deformity. Mucous membranes are moist tongue is midline NECK: The neck is nontender and supple. RESPIRATORY: Normal respiratory effort is noted there is no evidence of wheezing rhonchi or rales CARDIOVASCULAR: Regular rate and rhythm noted there no murmurs rubs or gallops normal S1 normal S2 GASTROINTESTINAL: The abdomen is soft. Bowel sounds are present in all quadrants. Abdomen is nontender MUSCULOSKELETAL/EXTREMITIES: Significant left leg swelling with circumferential erythema noted, there was an irregular bored noted, there was induration in posterior left calf SKIN: There is no obvious evidence of any rash. There are no petechiae, pallor or cyanosis noted. NEUROLOGIC: Patient is awake alert and oriented x3 Medical Decision & Procedures ER Provider Diagnostic Interpretation: Radiology results as stated below per my review and radiologist interpretation: ULTRASOUND LEFT LOWER EXTREMITY VENOUS CLINICAL HISTORY: Left leg pain. COMPARISON STUDY: Left lower extremity venous ultrasound dated 03/09/2017 TECHNIQUE: Real-time, grayscale, and color Doppler sonography of the deep veins of the left lower extremity was performed from the inguinal crease to the calf. Compression and augmentation were utilized. FINDINGS: There is no sonographic evidence of deep venous thrombosis identified in the left lower extremity. The common femoral, superficial femoral, and popliteal veins are patent and normally compressible. The greater saphenous vein and the profunda femoris vein at the junction with the common femoral vein are clear. The visualized calf veins are patent. IMPRESSION: There is no sonographic evidence of deep venous thrombosis identified in the left lower extremity. No change from study performed 2 days previously. Electronically signed by: Williams Beavers M.D. 03/11/2017 9:52 PM Dictated Date/Time: 03/11/2017 9:52 PM LEFT TIBIA AND FIBULA 2 VIEWS CLINICAL HISTORY: Left leg pain and swelling FINDINGS: AP and lateral views of the left tibia and fibula are compared to study dated 03/09/2017. The skeletal structures are osteopenic. No acute fracture is seen. Advanced arthritic change and chronic lateral subluxation of the knee joint are similar to previous. There is deformity from a remote tibial plateau fracture. The ankle Joint is grossly maintained. Diffuse soft tissue edema is present throughout the left lower extremity. IMPRESSION: 1. Diffuse soft tissue edema with no acute bony abnormality identified. There has been no significant change from study performed 2 days previously. 2. Osteopenia and chronic changes as above. Electronically signed by: Williams Beavers M.D. 03/11/2017 10:15 PM Dictated Date/Time: 03/11/2017 10:13 PM ULTRASOUND LEFT LOWER EXTREMITY NONVASCULAR CLINICAL HISTORY: Left leg pain and swelling. COMPARISON STUDY: Left lower extremity ultrasound dated 03/09/2017. FINDINGS: Real-time, grayscale, and color flow sonography of the soft tissues of the left calf is performed at the indicated site of interest. There is an 8.5 x 1.4 x 4.6 cm complex nonvascular fluid collection in the posterior calf at the indicated site of interest. Mild subcutaneous edema is noted. IMPRESSION: There is a nonvascular 8.5 x 1.4 x 4.6 cm complex fluid collection identified in the left posterior calf indicated site of interest. This likely represents a hematoma. Clinical correlation will be required and clinical follow-up to resolution is recommended. Electronically signed by: Williams Beavers M.D. 03/11/2017 10:40 PM Dictated Date/Time: 03/11/2017 10:38 PM Laboratory Results 03/11/17 21:21 Red Blood Count 4.73, Mean Corpuscular Volume 92.2, Mean Corpuscular Hemoglobin 30.4, Mean Corpuscular Hemoglobin Concent 33.0, Mean Platelet Volume 9.2, Neutrophils (%) (Auto) 55.3, Lymphocytes (%) (Auto) 30.4, Monocytes (%) (Auto) 11.5, Eosinophils (%) (Auto) 2.3, Basophils (%) (Auto) 0.3, Neutrophils # (Auto ) 4.87, Lymphocytes # (Auto) 2.68, Monocytes # (Auto) 1.01, Eosinophils # (Auto ) 0.20, Basophils # (Auto) 0.03 03/11/17 21:21 Test 03/11/17 21:09 03/11/17 21:21 Urine Color YELLOW Urine Appearance CLEAR (CLEAR) Urine pH 5.5 (4.5-7.5) Urine Specific [place] 1.019 (1.000-1.030) Urine Protein NEG (NEG) Urine Glucose (UA) NEG (NEG) Urine Ketones NEG (NEG) Urine Occult Blood NEG (NEG) Urine Nitrite NEG (NEG) Urine Bilirubin NEG (NEG) Urine Urobilinogen NEG (NEG) Urine Leukocyte Esterase NEG (NEG) White Blood Count 8.81 K/uL (4.8-10.8) Red Blood Count 4.73 M/uL (4.7-6.1) Hemoglobin 14.4 g/dL (14.0-18.0) Hematocrit 43.6 % (42-52) Mean Corpuscular Volume 92.2 fL (80-100) Mean Corpuscular Hemoglobin 30.4 pg (25-34) Mean Corpuscular Hemoglobin Concent 33.0 g/dl (32-36) Platelet Count 249 K/uL (130-400) Mean Platelet Volume 9.2 fL (7.4-10.4) Neutrophils (%) (Auto) 55.3 % Lymphocytes (%) (Auto) 30.4 % Monocytes (%) (Auto) 11.5 % Eosinophils (%) (Auto) 2.3 % Basophils (%) (Auto) 0.3 % Neutrophils # (Auto) 4.87 K/uL (1.4-6.5) Lymphocytes # (Auto) 2.68 K/uL (1.2-3.4) Monocytes # (Auto) 1.01 K/uL (0.11-0.59) Eosinophils # (Auto) 0.20 K/uL (0-0.5) Basophils # (Auto) 0.03 K/uL (0-0.2) RDW Standard Deviation 46.4 fL (36.4-46.3) RDW Coefficient of Variation 13.8 % (11.5-14.5) Immature Granulocyte % (Auto) 0.2 % Immature Granulocyte # (Auto) 0.02 K/uL (0.00-0.02) Erythrocyte Sedimentation Rate 49 mm/hr (0-14) Anion Gap 8.0 mmol/L (3-11) Est Creatinine Clear Calc Drug Dose 54.3 ml/min Estimated GFR () 50.0 Estimated GFR (Non- 43.2 BUN/Creatinine Ratio 13.3 (10-20) Calcium Level 8.9 mg/dl (8.5-10.1) Total Bilirubin 0.5 mg/dl (0.2-1) Direct Bilirubin < 0.1 mg/dl (0-0.2) Aspartate Amino Transf (AST/SGOT) 18 U/L (15-37) Alanine Aminotransferase (ALT/SGPT) 21 U/L (12-78) Alkaline Phosphatase 95 U/L (45-117) C-Reactive Protein 3.55 mg/dl (0-0.29) Total Protein 7.2 gm/dl (6.4-8.2) Albumin 3.3 gm/dl (3.4-5.0) Lipase 70 U/L (73-393) Laboratory results per my review. Medications Administered Medications (Trade) Dose Ordered Sig/[place]erson Route Start Time Stop Time Status Last Admin Dose Admin Ceftriaxone Sodium (Rocephin Inj) 1 gm NOW STAT IV 03/11/17 20:41 03/11/17 20:43 DC 03/11/17 21:18 1 GM Oxycodone/ Acetaminophen 1 tab 1 tab NOW ONCE PO 03/11/17 20:45 03/11/17 20:46 DC 03/11/17 21:11 1 TAB Sodium Chloride (Nss 1000ml) 1,000 ml @ 999 mls/hr Q1H1M STAT IV 03/11/17 22:27 03/11/17 23:27 DC 03/11/17 23:07 999 MLS/HR Ondansetron HCl (Zofran Inj) 4 mg NOW STAT IV 03/11/17 23:38 03/11/17 23:39 DC 03/11/17 23:43 4 MG ED Course 2032: The patient was evaluated in room C9. A complete history and physical examination were performed. 2040: Ordered Rocephin Inj 1 gm IV. 2044: Ordered Oxycodone/ Acetaminophen 1 tab PO. 7: Ordered NSS 1000 ml @ 999 mls/hr IV. 2310: Ordered Vancomycin HCl 2000 mg/ NSS 290 ml @ 125 mls/hr IV. 2326: At this time, I discussed the patient's case with Dr. Hernandez - Hospitalist [facility] [place] and he agreed to accept the patient for further evaluation. 2338: Ordered Zofran Inj 4 mg IV. 2345: Ordered Morphine Sulfate 4 mg IV. Medical Decision Differential diagnosis: Etiologies such as cellulitis, abscess, MRSA infection, DVT, necrotizing fasciitis, dermatitis, drug eruption, as well as others were entertained.. Nursing notes reviewed. The patient is a 61-year-old male who presented to the emergency department for evaluation of left leg pain. The patient had a recent injury to his left leg. He was started on antibiotics for cellulitis but his cellulitis continues to spread proximally. The patient was found have fluid collection in his left calf which I think could be consistent with a hematoma from the trauma. The patient was treated with further IV antibiotics in the emergency department. I discussed the patient's laboratory and radiographic studies with him. His creatinine has increased since his last visit. Because of the patient's comorbidities and ongoing symptoms as well as his outpatient therapy failure I discussed his case with the on-call [facility] hospitalist group. They've agreed to evaluate the patient in the emergency department for further management and disposition. Consults Time Called: [id number] Consulting Physician: Dr. Hernandez - Hospitalist [facility] [place] Returned Call: [phone] At this time, I discussed the patient's case with Dr. Hernandez and he agreed to accept the patient for further evaluation. Impression Primary Impression: Left leg cellulitis Additional Impressions: Hematoma of left lower extremity Acute kidney injury Scribe Attestation The scribe's documentation has been prepared under my direction and personally reviewed by me in its entirety. I confirm that the note above accurately reflects all work, treatment, procedures, and medical decision making performed by me. Departure Information Dispostion Being Evaluated By Hospitalist Ravindra Wong M.D. (PCP) Problem Qualifiers Additional Impressions: Hematoma of left lower extremity Encounter type: subsequent encounter Qualified Codes: S80.12XD - Contusion of left lower leg, subsequent encounter
[2017-03-11 21:34] LABS: BASO % 0.3 %; BASO ABS # 0.03 K/uL (0-0.2); COMPLETE YES; EOS % 2.3 %; HEMATOCRIT 43.6 % (42-52); IG% 0.2 %; LYMPH % 30.4 %; LYMPH ABS # 2.68 K/uL (1.2-3.4); MEAN CELL VOLUME 92.2 fL (80-100); MEAN CORPUSCULAR HEMOGLOBIN 30.4 pg (25-34); MEAN PLATELET VOLUME 9.2 fL (7.4-10.4); MONO % 11.5 %; NEUT % 55.3 %; PLATELET COUNT 249 K/uL (130-400); RED BLOOD COUNT 4.73 M/uL (4.7-6.1); WHITE BLOOD COUNT 8.81 K/uL (4.8-10.8)
[2017-03-11 21:43] LABS: URINE APPEARANCE CLEAR (CLEAR); URINE BILIRUBIN NEG (NEG); URINE COLOR YELLOW; URINE NITRITE NEG (NEG); URINE PH 5.5 (4.5-7.5); URINE SPECIFIC GRAVITY 1.019 (1.000-1.030); UROBILINOGEN NEG (NEG)
[2017-03-11 21:46] LABS: MANUAL MICROSCOPIC REQUIRED? NO; REVIEW REQ? NO
--- NOTE | 2017-03-11 21:53 | DIAGNOSTIC IMAGING REPORT ---
ULTRASOUND LEFT LOWER EXTREMITY VENOUS CLINICAL HISTORY: Left leg pain. COMPARISON STUDY: Left lower extremity venous ultrasound dated 03/09/2017 TECHNIQUE: Real-time, grayscale, and color Doppler sonography of the deep veins of the left lower extremity was performed from the inguinal crease to the calf. Compression and augmentation were utilized. FINDINGS: There is no sonographic evidence of deep venous thrombosis identified in the left lower extremity. The common femoral, superficial femoral, and popliteal veins are patent and normally compressible. The greater saphenous vein and the profunda femoris vein at the junction with the common femoral vein are clear. The visualized calf veins are patent. IMPRESSION: There is no sonographic evidence of deep venous thrombosis identified in the left lower extremity. No change from study performed 2 days previously. Electronically signed by: Williams Beavers M.D. 03/11/2017 9:52 PM Dictated Date/Time: 03/11/2017 9:52 PM
[2017-03-11 21:59] LABS: ALT/SGPT 21 U/L (12-78); BLOOD UREA NITROGEN 23 mg/dl (7-18); BUN/CREATININE RATIO 13.3 (10-20); C-REACTIVE PROTEIN 3.55 mg/dl (0-0.29); CARBON DIOXIDE 32 mmol/L (21-32); CHLORIDE 98 mmol/L (98-107); GLUCOSE 119 mg/dl (70-99); SODIUM 138 mmol/L (136-145)
[2017-03-11 22:01] LABS: ALKALINE PHOSPHATASE 95 U/L (45-117); AST/SGOT 18 U/L (15-37)
[2017-03-11 22:08] LABS: CALCIUM 8.9 mg/dl (8.5-10.1)
--- NOTE | 2017-03-11 22:17 | DIAGNOSTIC IMAGING REPORT ---
LEFT TIBIA AND FIBULA 2 VIEWS CLINICAL HISTORY: Left leg pain and swelling FINDINGS: AP and lateral views of the left tibia and fibula are compared to study dated 03/09/2017. The skeletal structures are osteopenic. No acute fracture is seen. Advanced arthritic change and chronic lateral subluxation of the knee joint are similar to previous. There is deformity from a remote tibial plateau fracture. The ankle Joint is grossly maintained. Diffuse soft tissue edema is present throughout the left lower extremity. IMPRESSION: 1. Diffuse soft tissue edema with no acute bony abnormality identified. There has been no significant change from study performed 2 days previously. 2. Osteopenia and chronic changes as above. Electronically signed by: Williams Beavers M.D. 03/11/2017 10:15 PM Dictated Date/Time: 03/11/2017 10:13 PM
[2017-03-11] MEDS ORDERED: SODIUM CHLORIDE 0.9% 1000ML 1,000 ML IV STA (22:27)
--- NOTE | 2017-03-11 22:42 | DIAGNOSTIC IMAGING REPORT ---
ULTRASOUND LEFT LOWER EXTREMITY NONVASCULAR CLINICAL HISTORY: Left leg pain and swelling. COMPARISON STUDY: Left lower extremity ultrasound dated 03/09/2017. FINDINGS: Real-time, grayscale, and color flow sonography of the soft tissues of the left calf is performed at the indicated site of interest. There is an 8.5 x 1.4 x 4.6 cm complex nonvascular fluid collection in the posterior calf at the indicated site of interest. Mild subcutaneous edema is noted. IMPRESSION: There is a nonvascular 8.5 x 1.4 x 4.6 cm complex fluid collection identified in the left posterior calf indicated site of interest. This likely represents a hematoma. Clinical correlation will be required and clinical follow-up to resolution is recommended. Electronically signed by: Williams Beavers M.D. 03/11/2017 10:40 PM Dictated Date/Time: 03/11/2017 10:38 PM
[2017-03-11] MEDS ORDERED: VANCOMYCIN INJ 2,000 MG in SODIUM CHLORIDE 0.9% 250ML 250 ML IV STA (23:10)
[2017-03-11] MEDS ORDERED: ONDANSETRON INJ 2 MG/ML 2 ML VIAL IV STA (23:38)
[2017-03-11] MEDS ORDERED: ACETAMINOPHEN 325 MG TAB PO PRN (23:45)
[2017-03-11] MEDS ORDERED: GLUCOSE 40% GEL 15 GM TUBE PO PRN (23:45)
[2017-03-11] MEDS ORDERED: ONDANSETRON INJ 2 MG/ML 2 ML VIAL IV PRN (23:45)
[2017-03-11] MEDS ORDERED: GLUCAGON FOR INJ 1 MG VIAL SQ PRN (23:45)
[2017-03-11] MEDS ORDERED: MoRPHine SULFATE 4 MG/ML 1 ML CARP\\VIAL IV PRN (23:45)
[2017-03-11] MEDS ORDERED: ZOLPIDEM TARTRATE 5 MG TAB PO PRN (23:45)
[2017-03-11] MEDS ORDERED: DEXTROSE 50% 50 ML SYR IV PRN (23:45)
[2017-03-11] MEDS ORDERED: VANCOMYCIN INJ 2,000 MG in SODIUM CHLORIDE 0.9% 500ML 500 ML IV STA (23:54)
--- NOTE | 2017-03-12 00:03 | History and Physical ---
History & Physical Date & Time of Service: March 11, 2017 at 23:46 Chief Complaint: Left Leg Pain And Swelling Primary Care Physician: Ravindra Fraga M.D. History of Present Illness Source: patient The patient is a 61-year-old male who presents to the emergency department with worsening left lower extremity cellulitis in spite of outpatient therapy with Keflex and Bactrim DS. The patient's symptoms initially began 1 week ago when he fell off a stool and bumped the back of his left calf. He then presented to the emergency department on March 09, was given IV ceftriaxone and discharged on Bactrim and Keflex orally. He presented to his family doctor today, and they radha a line at the proximal end of the infection and told him that for about beyond that to come to emergency department, which is why he presented to the ED at this time. Past Medical/Surgical History Medical Problems: (1) Congestive heart failure Status: Resolved (2) Diabetes Status: Chronic (3) High cholesterol Status: Chronic (4) Hypertension Status: Chronic (5) Ischemic cardiomyopathy Status: Chronic (6) Myocardial infarction Status: Resolved Surgical Problems: (1) H/O cardiac catheterization Status: Resolved (2) H/O cardiac radiofrequency ablation Status: Resolved Family History FHx: cancer FHx: heart disease Hypertension Social History Smoking Status: Never Smoker Smokeless Tobacco Use: No Alcohol Use: none Drug Use: none Marital Status: Housing status: lives with family Occupational Status: disabled Immunizations History of Influenza Vaccine: Unknown History of Tetanus Vaccine?: No History of Pneumococcal: Unknown History of Hepatitis B Vaccine: No Multi-Drug Resistant Organisms History of MDRO: No Allergies Coded Allergies: Lisinopril (Unverified Allergy, Unknown, cough, 03/11/17) Home Medications Scheduled Ascorbic Acid (Vitamin C), 1,000 MG PO DAILY Aspirin (Aspirin), 1 TAB PO DAILY Bumetanide (Bumex), 1 TAB PO DAILY Calcium Carbonate-Vitamin D (Calcium-Carb 600 + D), 1 TAB PO DAILY Carvedilol (Coreg), 12.5 MG PO BID Cephalexin Monohydrate (Keflex), 500 MG PO QID Cholecalciferol (Vitamin D3), 1 TAB PO DAILY Insulin Isophan/Regular (Novolin 70/30), 10 UNITS SC TID Insulin Regular (Human) (Novolin R Relion), 30 UNITS SC BID Losartan Potassium (Cozaar), 50 MG PO DAILY Metformin Hcl (Glucophage), 500 MG PO BIDM Multiple Vitamin (Multivitamin), 1 TAB PO DAILY Pantoprazole (Protonix), 40 MG PO BID Primidone (Mysoline), 25 MG PO QPM Simvastatin (Zocor), 40 MG PO DAILY Spironolactone (Aldactone), 25 MG PO DAILY Sulfa/Trimethoprim (Bactrim Ds 800MG/160MG), 1 TAB PO BID Scheduled PRN Acetaminophen (Tylenol), 500 MG PO BID PRN for prn Hydrocodone/Acetaminophen 5MG/325MG (Sully 5MG/325MG), 1 TABLET PO BID PRN for Pain Review of Systems The patient denies chest pain, palpitations, shortness of breath, cough, vision change, hearing change, sore throat, fevers, chills, sweats, weight change, fatigue, nausea, vomiting, abdominal pain, pelvic pain, blood in urine or stool, dysuria, urinary frequency or urgency, lightheadedness, dizziness, headache, memory loss, generalized weakness, numbness or tingling in arms, arthralgias or myalgias, back or neck pain, night sweats, or allergy symptoms. The review of systems is otherwise negative other than for that already noted above, and at least 10 systems have been reviewed. Physical Exam Vital Signs Date Time Temp Pulse Resp B/P Pulse Ox O2 Delivery O2 Flow Rate FiO2 03/11/17 23:30 97 03/11/17 23:06 97 18 129/94 98 Room Air 03/11/17 22:14 92 18 116/61 94 Room Air 03/11/17 21:21 95 18 129/78 96 Room Air 03/11/17 20:26 36.7 103 24 120/60 94 Room Air The patient is awake, well-developed and adequately nourished, alert and oriented 3, normocephalic and atraumatic, lying in bed and in no acute distress. HEENT--PERRL, EOMI, mucous membranes and oropharynx normal. Neck--supple, no JVD or bruits, thyroid normal, trachea midline, no adenopathy. Heart--normal S1 and S2, no extra beats, no murmurs, rubs or gallops. Lungs--clear bilaterally with good air movement, no respiratory distress, no accessory muscle use. Abdomen--normal bowel sounds and soft, nontender and nondistended, and moderately obese. Extremities--no cyanosis, clubbing. There is bilaterally 1+ pretibial pitting Edema. There are good distal pulses b/l. Dermatologic--right lower extremity shows chronic venous stasis changes. Left lower extremity with erythema and warmth from ankle to just below the tibial tuberosity, and a deeper ecchymotic area on posterior calf, that is mildly tender. Neurologic--cranial nerves II through XII grossly intact, motor and sensory examination normal. Rheumatologic--normal range of motion Psychiatric--normal affect. Diagnostics Laboratory Results Results Past 24 Hours Test 03/11/17 21:09 03/11/17 21:21 Range/Units Urine Color YELLOW Urine Appearance CLEAR CLEAR Urine pH 5.5 4.5-7.5 Urine Specific [place] 1.019 1.000-1.030 Urine Protein NEG NEG Urine Glucose (UA) NEG NEG Urine Ketones NEG NEG Urine Occult Blood NEG NEG Urine Nitrite NEG NEG Urine Bilirubin NEG NEG Urine Urobilinogen NEG NEG Urine Leukocyte Esterase NEG NEG White Blood Count 8.81 4.8-10.8 K/uL Red Blood Count 4.73 4.7-6.1 M/uL Hemoglobin 14.4 14.0-18.0 g/dL Hematocrit 43.6 42-52 % Mean Corpuscular Volume 92.2 80-100 fL Mean Corpuscular Hemoglobin 30.4 25-34 pg Mean Corpuscular Hemoglobin Concent 33.0 32-36 g/dl Platelet Count 249 130-400 K/uL Mean Platelet Volume 9.2 7.4-10.4 fL Neutrophils (%) (Auto) 55.3 % Lymphocytes (%) (Auto) 30.4 % Monocytes (%) (Auto) 11.5 % Eosinophils (%) (Auto) 2.3 % Basophils (%) (Auto) 0.3 % Neutrophils # (Auto) 4.87 1.4-6.5 K/uL Lymphocytes # (Auto) 2.68 1.2-3.4 K/uL Monocytes # (Auto) 1.01 0.11-0.59 K/uL Eosinophils # (Auto) 0.20 0-0.5 K/uL Basophils # (Auto) 0.03 0-0.2 K/uL RDW Standard Deviation 46.4 36.4-46.3 fL RDW Coefficient of Variation 13.8 11.5-14.5 % Immature Granulocyte % (Auto) 0.2 % Immature Granulocyte # (Auto) 0.02 0.00-0.02 K/uL Erythrocyte Sedimentation Rate 49 0-14 mm/hr Sodium Level 138 136-145 mmol/L Potassium Level 4.0 3.5-5.1 mmol/L Chloride Level 98 98-107 mmol/L Carbon Dioxide Level 32 21-32 mmol/L Anion Gap 8.0 3-11 mmol/L Blood Urea Nitrogen 23 7-18 mg/dl Creatinine 1.70 0.60-1.40 mg/dl Est Creatinine Clear Calc Drug Dose 54.3 ml/min Estimated GFR () 50.0 Estimated GFR (Non- 43.2 BUN/Creatinine Ratio 13.3 10-20 Random Glucose 119 70-99 mg/dl Calcium Level 8.9 8.5-10.1 mg/dl Total Bilirubin 0.5 0.2-1 mg/dl Direct Bilirubin < 0.1 0-0.2 mg/dl Aspartate Amino Transf (AST/SGOT) 18 15-37 U/L Alanine Aminotransferase (ALT/SGPT) 21 12-78 U/L Alkaline Phosphatase 95 45-117 U/L C-Reactive Protein 3.55 0-0.29 mg/dl Total Protein 7.2 6.4-8.2 gm/dl Albumin 3.3 3.4-5.0 gm/dl Lipase 70 73-393 U/L Diagnostic Radiology Patient Name: ALISTAIR EUBANKS Unit Number: [id number] Dictated: 03/11/172151 Transcribed: 03/11/172151 EV Printed Date/Time: [~ rep prt dt]/[~ rep prt tm] [~ rep ct labl] - [~ rep ct ivnm] [facility] [place] [address] Dictated: 03/11/172151 Transcribed: 03/11/172151 EV Printed Date/Time: [~ rep prt dt]/[~ rep prt tm] [~ rep ct labl] - [~ rep ct ivnm] ULTRASOUND LEFT LOWER EXTREMITY VENOUS CLINICAL HISTORY: Left leg pain. COMPARISON STUDY: Left lower extremity venous ultrasound dated 03/09/2017 TECHNIQUE: Real-time, grayscale, and color Doppler sonography of the deep veins of the left lower extremity was performed from the inguinal crease to the calf. Compression and augmentation were utilized. FINDINGS: There is no sonographic evidence of deep venous thrombosis identified in the left lower extremity. The common femoral, superficial femoral, and popliteal veins are patent and normally compressible. The greater saphenous vein and the profunda femoris vein at the junction with the common femoral vein are clear. The visualized calf veins are patent. IMPRESSION: There is no sonographic evidence of deep venous thrombosis identified in the left lower extremity. No change from study performed 2 days previously. Electronically signed by: Williams Beavers M.D. 03/11/2017 9:52 PM Dictated Date/Time: 03/11/2017 9:52 PM The status of this report is Signed. Draft = Not yet reviewed or approved by Radiologist. Signed = Reviewed and approved by Radiologist. <AttendingPhy></AttendingPhy> <FamilyPhy>Ravindra Fraga M.D.</FamilyPhy> < PrimaryPhy>Ravindra Fraga M.D.</PrimaryPhy> <UnitNumber>[id number]</UnitNumber > <VisitNumber>[id number]</VisitNumber> <PatientName>JUSTOESTEFANYALISTAIR Long</ PatientName> <DateOfBirth>1955</DateOfBirth> [facility] < ServiceDate>03/11/17</ServiceDate> <MNE>ESINDI</MNE> <OrderingPhy>Anibal Laughlin D.O.</OrderingPhy> <OrderingPhyMNE>f rep ord dr raphael</OrderingPhyMNE> <DictatingPhyMNE>f rep dict dr raphael</DictatingPhyMNE> <CCListMNE>f rep ct donavon</ CCListMNE> <AdmittingPhyMNE>f pt admit dr raphael</AdmittingPhyMNE> <AttendingPhyMNE >f pt attend dr raphael</AttendingPhyMNE> <ConsultingPhyMNE>f pt consult dr raphael</ConsultingPhyMNE> <FamilyPhyMNE>f pt fam dr raphael</FamilyPhyMNE> <OtherPhyMNE>f pt other dr raphael</OtherPhyMNE> < PrimaryPhyMNE>f pt prim care dr raphael</PrimaryPhyMNE> <ReferringPhyMNE>f pt referring dr raphael</ReferringPhyMNE> Patient Name: ALISTAIR EUBANKS Unit Number: [id number] Dictated: 03/11/172212 Transcribed: 03/11/172212 EV Printed Date/Time: [~ rep prt dt]/[~ rep prt tm] [~ rep ct labl] - [~ rep ct ivnm] [facility] Radiology Department [place], [place] [address] Dictated: 03/11/172212 Transcribed: 03/11/172212 EV Printed Date/Time: [~ rep prt dt]/[~ rep prt tm] [~ rep ct labl] - [~ rep ct ivnm] LEFT TIBIA AND FIBULA 2 VIEWS CLINICAL HISTORY: Left leg pain and swelling FINDINGS: AP and lateral views of the left tibia and fibula are compared to study dated 03/09/2017. The skeletal structures are osteopenic. No acute fracture is seen. Advanced arthritic change and chronic lateral subluxation of the knee joint are similar to previous. There is deformity from a remote tibial plateau fracture. The ankle Joint is grossly maintained. Diffuse soft tissue edema is present throughout the left lower extremity. IMPRESSION: 1. Diffuse soft tissue edema with no acute bony abnormality identified. There has been no significant change from study performed 2 days previously. 2. Osteopenia and chronic changes as above. Electronically signed by: Williams Beavers M.D. 03/11/2017 10:15 PM Dictated Date/Time: 03/11/2017 10:13 PM The status of this report is Signed. Draft = Not yet reviewed or approved by Radiologist. Signed = Reviewed and approved by Radiologist. <AttendingPhy></AttendingPhy> <FamilyPhy>Ravindra Fraga M.D.</FamilyPhy> < PrimaryPhy>Ravindra Fraga M.D.</PrimaryPhy> <UnitNumber>[id number]</UnitNumber > <VisitNumber>[id number]</VisitNumber> <PatientName>ALISTAIR EUBANKS</ PatientName> <DateOfBirth>1955</DateOfBirth> <Location>[facility]</Location> < ServiceDate>03/11/17</ServiceDate> <MNE>ESINDI</MNE> <OrderingPhy>Anibal Laughlin D.O.</OrderingPhy> <OrderingPhyMNE>f rep ord dr raphael</OrderingPhyMNE> <DictatingPhyMNE>f rep dict dr raphael</DictatingPhyMNE> <CCListMNE>f rep ct mne</ CCListMNE> <AdmittingPhyMNE>f pt admit dr raphael</AdmittingPhyMNE> <AttendingPhyMNE >f pt attend dr raphael</AttendingPhyMNE> <ConsultingPhyMNE>f pt consult dr raphael</ConsultingPhyMNE> <FamilyPhyMNE>f pt fam dr raphael</FamilyPhyMNE> <OtherPhyMNE>f pt other dr raphael</OtherPhyMNE> < PrimaryPhyMNE>f pt prim care dr raphael</PrimaryPhyMNE> <ReferringPhyMNE>f pt referring dr raphael</ReferringPhyMNE> Patient Name: ALISTAIR EUBANKS Unit Number: [id number] Dictated: 03/11/172237 Transcribed: 03/11/172237 EV Printed Date/Time: [~ rep prt dt]/[~ rep prt tm] [~ rep ct labl] - [~ rep ct ivnm] [facility] [place] [place] [address] Dictated: 03/11/172237 Transcribed: 03/11/172237 EV Printed Date/Time: [~ rep prt dt]/[~ rep prt tm] [~ rep ct labl] - [~ rep ct ivnm] [~ rep ct add3]] ULTRASOUND LEFT LOWER EXTREMITY NONVASCULAR CLINICAL HISTORY: Left leg pain and swelling. COMPARISON STUDY: Left lower extremity ultrasound dated 03/09/2017. FINDINGS: Real-time, grayscale, and color flow sonography of the soft tissues of the left calf is performed at the indicated site of interest. There is an 8.5 x 1.4 x 4.6 cm complex nonvascular fluid collection in the posterior calf at the indicated site of interest. Mild subcutaneous edema is noted. IMPRESSION: There is a nonvascular 8.5 x 1.4 x 4.6 cm complex fluid collection identified in the left posterior calf indicated site of interest. This likely represents a hematoma. Clinical correlation will be required and clinical follow-up to resolution is recommended. Electronically signed by: Williams Beavers M.D. 03/11/2017 10:40 PM Dictated Date/Time: 03/11/2017 10:38 PM The status of this report is Signed. Draft = Not yet reviewed or approved by Radiologist. Signed = Reviewed and approved by Radiologist. <AttendingPhy></AttendingPhy> <FamilyPhy>Ravindra Fraga M.D.</FamilyPhy> < PrimaryPhy>Ravindra Fraga M.D.</PrimaryPhy> <UnitNumber>[id number]</UnitNumber > <VisitNumber>[id number]</VisitNumber> <PatientName>ALISTAIR EUBANKS</ PatientName> <DateOfBirth>1955</DateOfBirth> <Location>[facility]</Location> < ServiceDate>03/11/17</ServiceDate> <MNE>ESINDI</MNE> <OrderingPhy>Anibal Laughlin D.O.</OrderingPhy> <OrderingPhyMNE>f rep ord dr raphael</OrderingPhyMNE> <DictatingPhyMNE>f rep dict dr raphael</DictatingPhyMNE> <CCListMNE>f rep ct donavon</ CCListMNE> <AdmittingPhyMNE>f pt admit dr raphael</AdmittingPhyMNE> <AttendingPhyMNE >f pt attend dr raphael</AttendingPhyMNE> <ConsultingPhyMNE>f pt consult dr raphael</ConsultingPhyMNE> <FamilyPhyMNE>f pt fam dr raphael</FamilyPhyMNE> <OtherPhyMNE>f pt other dr raphael</OtherPhyMNE> < PrimaryPhyMNE>f pt prim care dr raphael</PrimaryPhyMNE> <ReferringPhyMNE>f pt referring dr raphael</ReferringPhyMNE> Impression Assessment and Plan Left lower extremity cellulitis with failure of outpatient treatment--the patient has worsened despite being on Keflex and Bactrim. He'll be admitted to the medical surgical floor, and placed on vancomycin IV per renal dosing, and Zosyn 3.375 mg IV every 8 hours. Diabetes mellitus--continue usual outpatient dosing of Novolin R 30 units subcutaneous twice a day, Novolin 70/30 10 units subcutaneous 3 times a day, and place on Accu-Cheks before meals and at bedtime with NovoLog coverage per scale. We will hold metformin 500 mg by mouth twice a day. CAD/history of MO/ICM/CHF/hypertension--continue aspirin daily, Bumex 2 mg by mouth daily, carvedilol 12.5 mg by mouth twice a day, losartan potassium 50 mg by mouth daily, and spironolactone 25 mg by mouth daily. Perform daily CBC with differential, BMP and magnesium levels. Hypercholesterolemia--continue simvastatin 40 mg by mouth daily. GERD--continue pantoprazole 40 mg by mouth twice a day. Continue primidone 25 mg by mouth every afternoon. Level of Care Med/Surg Advanced Directives Existing Advance Directive: No Existing Living Will: No Existing Power of Staffing Account Manager: No Resuscitation Status FULL RESUSCITATION VTE Prophylaxis VTE Risk Assessment Done? Y/N: Yes Risk Level: Moderate Given or contraindicated: Contraindicated
[2017-03-12 00:30] VITALS: BP 144/72; PULSE 92; TEMP 36.9; O2SAT 95; BMI 49.6
[2017-03-12] MEDS ORDERED: MoRPHine SULFATE 2 MG/ML CARP ONE (00:59)
[2017-03-12] MEDS ORDERED: VANCOMYCIN CONSULT ACTIVE PRN (01:19)
[2017-03-12] MEDS ORDERED: PIPERACILL/TAZOBAC CONSULT ACTIVE PRN (01:30)
[2017-03-12] MEDS ORDERED: PIPERACILL/TAZOBAC IV 4.5 GM in DEXTROSE 5% 100ML IV ONE (01:30)
[2017-03-12] MEDS ORDERED: VANCOMYCIN INJ 800 MG in SODIUM CHLORIDE 0.9% 250ML 250 ML IV SCH (02:30)
[2017-03-12] MEDS: PIPERACILL/TAZOBAC IV 4.5 GM in DEXTROSE 5% 100ML IV SCH ×3 (05:25→21:35)
[2017-03-12] MEDS: MoRPHine SULFATE 2 MG/ML CARP IV PRN ×4 (05:25→21:35)
[2017-03-12] MEDS ORDERED: PIPERACILL/TAZOBAC IV 3.375 GM in DEXTROSE 5% 100ML 100 ML IV SCH (06:00)
[2017-03-12 07:03] VITALS: BP 114/62; PULSE 95; TEMP 36.8; O2SAT 95
[2017-03-12] MEDS: MULTIVITAMIN TAB PO SCH (07:45)
[2017-03-12] MEDS: ASPIRIN 325 MG ECTAB PO SCH (07:45)
[2017-03-12] MEDS: SIMVASTATIN 40 MG TAB PO SCH (07:45)
[2017-03-12] MEDS: CARVEDILOL 12.5 MG TAB PO SCH ×2 (07:45→21:24)
[2017-03-12] MEDS: PANTOprazole SOD 40 MG TAB PO SCH ×2 (07:46→21:23)
[2017-03-12] MEDS: ASCORBIC ACID 500 MG TAB PO SCH (07:46)
[2017-03-12] MEDS: CALCIUM 600MG + VIT D 400 IU TAB PO SCH ×2 (07:46→21:23)
[2017-03-12] MEDS: CHOLECALCIFEROL 1000 INTER.UNIT TAB PO SCH (07:46)
[2017-03-12] MEDS ORDERED: SPIRONOLACTONE 25 MG TAB PO SCH (08:00)
[2017-03-12] MEDS ORDERED: INSULIN HUMAN 70% NPH/30% REGULAR SC SCH (08:00)
[2017-03-12] MEDS ORDERED: LOSARTAN POTASSIUM 50 MG TAB PO SCH (08:00)
[2017-03-12] MEDS ORDERED: BUMETANIDE 1 MG TAB PO SCH (08:00)
[2017-03-12 08:40] LABS: BASO % 0.3 %; BASO ABS # 0.02 K/uL (0-0.2); COMPLETE YES; EOS % 1.9 %; HEMATOCRIT 41.2 % (42-52); IG% 0.1 %; LYMPH % 23.2 %; LYMPH ABS # 1.82 K/uL (1.2-3.4); MEAN CELL VOLUME 93.6 fL (80-100); MEAN PLATELET VOLUME 9.4 fL (7.4-10.4); MONO % 13.6 %; NEUT % 60.9 %; PLATELET COUNT 222 K/uL (130-400); WHITE BLOOD COUNT 7.84 K/uL (4.8-10.8)
[2017-03-12] MEDS: INSULIN HUMAN REGULAR SC SCH ×2 (08:48→18:16)
[2017-03-12] MEDS: INSULIN ASPART 100 UNITS/ML 3 ML PEN SC SCH ×4 (08:49→21:29)
[2017-03-12 09:08] LABS: BUN/CREATININE RATIO 13.2 (10-20); CALCIUM 8.2 mg/dl (8.5-10.1); CREATININE 1.2 mg/dl (0.60-1.40); MAGNESIUM 2.3 mg/dl (1.8-2.4); POTASSIUM 4.8 mmol/L (3.5-5.1)
[2017-03-12 09:22] LABS: BETA-HYDROXYBUTYRATE 18.26 mg/dL (0.2-2.81)
--- NOTE | 2017-03-12 09:33 | Pharmacy Progress Note ---
Pharmacy Abx Initial Consult Date of Service March 12, 2017. Pharmacy Dosing Scope Date of Consult: 03/12 Consultation requested by: Dr. Hernandez Pharmacy is consulted to initiate Vanco/Zosyn IV dosing therapy, order appropriate labs and adjust drug dose/frequency. Subjective The patient is a 61 year old male admitted on March 11, 2017 at 23:43. Objective Height (Feet): 5 Height (Inches): 2.00 Weight (Kilograms): 123.100 Vital Signs (Past 12Hrs) Vital Signs Past 12 Hours Date Time Temp Pulse Resp B/P Pulse Ox O2 Delivery O2 Flow Rate FiO2 03/12/17 07:03 36.8 95 20 114/62 95 Room Air 03/12/17 00:30 36.9 92 20 144/72 95 Room Air 03/12/17 00:19 91 18 128/65 93 03/11/17 23:30 97 03/11/17 23:06 97 18 129/94 98 Room Air 03/11/17 22:14 92 18 116/61 94 Room Air 03/11/17 21:21 95 18 129/78 96 Room Air Lab Results (24Hrs) Test 03/11/17 21:09 03/11/17 21:21 03/12/17 07:50 Urine Color YELLOW Urine Appearance CLEAR (CLEAR) Urine pH 5.5 (4.5-7.5) Urine Specific [place] 1.019 (1.000-1.030) Urine Protein NEG (NEG) Urine Glucose (UA) NEG (NEG) Urine Ketones NEG (NEG) Urine Occult Blood NEG (NEG) Urine Nitrite NEG (NEG) Urine Bilirubin NEG (NEG) Urine Urobilinogen NEG (NEG) Urine Leukocyte Esterase NEG (NEG) White Blood Count 8.81 K/uL (4.8-10.8) 7.84 K/uL (4.8-10.8) Red Blood Count 4.73 M/uL (4.7-6.1) 4.40 M/uL (4.7-6.1) Hemoglobin 14.4 g/dL (14.0-18.0) 13.2 g/dL (14.0-18.0) Hematocrit 43.6 % (42-52) 41.2 % (42-52) Mean Corpuscular Volume 92.2 fL (80-100) 93.6 fL (80-100) Mean Corpuscular Hemoglobin 30.4 pg (25-34) 30.0 pg (25-34) Mean Corpuscular Hemoglobin Concent 33.0 g/dl (32-36) 32.0 g/dl (32-36) Platelet Count 249 K/uL (130-400) 222 K/uL (130-400) Mean Platelet Volume 9.2 fL (7.4-10.4) 9.4 fL (7.4-10.4) Neutrophils (%) (Auto) 55.3 % 60.9 % Lymphocytes (%) (Auto) 30.4 % 23.2 % Monocytes (%) (Auto) 11.5 % 13.6 % Eosinophils (%) (Auto) 2.3 % 1.9 % Basophils (%) (Auto) 0.3 % 0.3 % Neutrophils # (Auto) 4.87 K/uL (1.4-6.5) 4.77 K/uL (1.4-6.5) Lymphocytes # (Auto) 2.68 K/uL (1.2-3.4) 1.82 K/uL (1.2-3.4) Monocytes # (Auto) 1.01 K/uL (0.11-0.59) 1.07 K/uL (0.11-0.59) Eosinophils # (Auto) 0.20 K/uL (0-0.5) 0.15 K/uL (0-0.5) Basophils # (Auto) 0.03 K/uL (0-0.2) 0.02 K/uL (0-0.2) RDW Standard Deviation 46.4 fL (36.4-46.3) 47.4 fL (36.4-46.3) RDW Coefficient of Variation 13.8 % (11.5-14.5) 13.9 % (11.5-14.5) Immature Granulocyte % (Auto) 0.2 % 0.1 % Immature Granulocyte # (Auto) 0.02 K/uL (0.00-0.02) 0.01 K/uL (0.00-0.02) Erythrocyte Sedimentation Rate 49 mm/hr (0-14) Sodium Level 138 mmol/L (136-145) 135 mmol/L (136-145) Potassium Level 4.0 mmol/L (3.5-5.1) 4.8 mmol/L (3.5-5.1) Chloride Level 98 mmol/L (98-107) 101 mmol/L (98-107) Carbon Dioxide Level 32 mmol/L (21-32) 28 mmol/L (21-32) Anion Gap 8.0 mmol/L (3-11) 6.0 mmol/L (3-11) Blood Urea Nitrogen 23 mg/dl (7-18) 16 mg/dl (7-18) Creatinine 1.70 mg/dl (0.60-1.40) 1.20 mg/dl (0.60-1.40) Est Creatinine Clear Calc Drug Dose 54.3 ml/min 76.9 ml/min Estimated GFR () 50.0 76.3 Estimated GFR (Non- 43.2 65.8 BUN/Creatinine Ratio 13.3 (10-20) 13.2 (10-20) Random Glucose 119 mg/dl (70-99) 343 mg/dl (70-99) Calcium Level 8.9 mg/dl (8.5-10.1) 8.2 mg/dl (8.5-10.1) Total Bilirubin 0.5 mg/dl (0.2-1) Direct Bilirubin < 0.1 mg/dl (0-0.2) Aspartate Amino Transf (AST/SGOT) 18 U/L (15-37) Alanine Aminotransferase (ALT/SGPT) 21 U/L (12-78) Alkaline Phosphatase 95 U/L (45-117) C-Reactive Protein 3.55 mg/dl (0-0.29) Total Protein 7.2 gm/dl (6.4-8.2) Albumin 3.3 gm/dl (3.4-5.0) Lipase 70 U/L (73-393) Magnesium Level 2.3 mg/dl (1.8-2.4) Risk Factors for Resistance * Antimicrobial use within the last 90 days Bactrim and Keflex Assessment & Plan Assessment 61 yo M being treated empirically for LLE cellulitis. He does not have a h/o of recurrent cellulitis; however, he has grown bragg sensitive staph aureus in his urine in the past. Pt looks to be close to baseline renal fxn. Pt population p' kinetics: t1/2=10hrs, ke=0.0683, Vd=0.6. RR & WBC both WNL, no left shift. Afebrile. Tachycardic. No Cx's are ordered. Mr. Reid recently failed outpatient Keflex and Bactrim (?possibly group A strep). Plan Vancomycin IV * Loading dose: 2800 mg (22.7 mg/kg) to quickly achieve a peak of about 38mcg/ mL. * Maintenance dose: 1600 mg IV (13 mg/kg) every 12 hours. Due to his larger habitus he is at a risk for Vanco accumulation. I have chosen a smaller MD dose in an effort to mitigate Vanco accumulation. * Goal trough level: 15 to 20 mcg/mL until we are certain there are no other systemic infxns or treating Osteomyelitis. * Trough level ordered for 03/14/17 @ 0130, prior to the 4th MD. Piperacillin/tazobactam * 4.5 g bolus administered over 30 minutes, then 4.5 g IV extended infusion every 8 hours for eCrCl greater than 20 mL/min * Aggressive dosing selected due to BMI 35 Thank you for consulting the pharmacy kinetic team and including us in the care of Mr. Reid Pharmacy will continue to follow and will adjust dose/frequency as necessary. Thank you.
--- NOTE | 2017-03-12 11:43 | Progress Note ---
Subjective Date of Service: March 12, 2017. Subjective Pt evaluation today including: conversation w/ patient, physical exam, lab review, review of studies, review of inpatient medication list Pain: less pain in left calf PO Intake: adequate Voiding: no voiding problems patient fell 8 days ago and struck the lateral posterior portion of left lower leg had immediate pain and then swelling, hurt to ambulate three days later noticed redness and leg was hot to tough, no fever/chills at all started on Bactrim and Keflex by the ED over the weekend redness spread despite antibiotics so he was admitted feels better today, no fever, less pain, less redness, less warmth I reviewed his lab work I reviewed imaging, there is no evidence of DVT or abscess, there is evidence of hematoma where he struck his leg Problem List Medical Problems: (1) Acute kidney injury Status: Acute (2) Cellulitis of left leg Status: Acute (3) Constipation Status: Acute (4) Hematoma of left lower extremity Status: Acute (5) Left sided chest pain Status: Acute (6) LLQ abdominal pain Status: Acute Review of Systems Musculoskeletal: + problem reported (left lower leg pain, hematoma, swelling) Skin: + rash All Other Systems: Reviewed and Negative Medications Current Inpatient Medications Medications (Trade) Dose Ordered Sig/Emerson Route Start Time Stop Time Status Last Admin Dose Admin Acetaminophen (Tylenol Tab) 650 mg Q4H PRN PO 03/11/17 23:45 04/10/17 23:44 03/12/17 01:02 650 MG Zolpidem Tartrate (Ambien Tab) 5 mg HSZ PRN PO 03/11/17 23:45 04/10/17 23:44 Ascorbic Acid (Vitamin C Tab) 1,000 mg DAILY PO 03/12/17 08:00 04/11/17 08:59 03/12/17 07:46 1,000 MG Aspirin (Ecotrin Tab) 325 mg DAILY PO 03/12/17 08:00 04/11/17 08:59 03/12/17 07:45 325 MG Carvedilol (Coreg Tab) 12.5 mg BID PO 03/12/17 08:00 04/11/17 08:59 03/12/17 07:45 12.5 MG Cholecalciferol (Vitamin D Tab) 1,000 inter.unit DAILY PO 03/12/17 08:00 04/11/17 08:59 03/12/17 07:46 1,000 INTER.UNIT Acetaminophen/ Hydrocodone Bitart ([place] 5/325 Tab) 1 tab QID PRN PO 03/11/17 23:45 03/25/17 23:44 Insulin Human Isoph/Insulin Regular (novoLIN 70/30 REGULAR) 10 units TIDM SC 03/12/17 08:00 04/11/17 07:59 03/12/17 08:47 10 UNITS Insulin Human Regular (novoLIN-R) 30 units BIDM SC 03/12/17 08:00 04/11/17 07:59 03/12/17 08:48 30 UNITS Multivitamins (Multivitamin Tab) 1 tab DAILY PO 03/12/17 08:00 04/11/17 08:59 03/12/17 07:45 1 TAB Pantoprazole Sodium (Protonix Tab) 40 mg BID PO 03/12/17 08:00 04/11/17 08:59 03/12/17 07:46 40 MG Primidone (Mysoline Tab) 25 mg QPM PO 03/12/17 21:00 04/11/17 20:59 Simvastatin (Zocor Tab) 40 mg DAILY PO 03/12/17 08:00 04/11/17 08:59 03/12/17 07:45 40 MG Calcium/Vitamin D (Caltrate Plus Tab) 1 tab BID PO 03/12/17 08:00 04/11/17 08:59 03/12/17 07:46 1 TAB Vancomycin HCl (Consult) 1 ea DAILY PRN N/A 03/12/17 01:19 04/11/17 01:18 Ondansetron HCl (Zofran Inj) 4 mg Q6H PRN IV 03/11/17 23:45 04/10/17 23:44 Insulin Aspart (novoLOG ASPART) SLIDING SCALE If C... ACHS SC 03/12/17 06:30 04/11/17 06:59 03/12/17 08:49 10 UNITS Glucose (Glucose 40% Gel) UD PRN PO 03/11/17 23:45 04/10/17 23:44 Glucose (Glucose Chew Tab) 1 tabs UD PRN PO 03/11/17 23:45 04/10/17 23:44 Dextrose (Dextrose 50% 50ML Syringe) 50 ml UD PRN IV 03/11/17 23:45 04/10/17 23:44 Glucagon (Glucagon Inj) 1 mg UD PRN SQ 03/11/17 23:45 04/10/17 23:44 Morphine Sulfate 2 mg 2 mg Q2H PRN IV 03/12/17 01:00 03/26/17 00:59 03/12/17 07:52 2 MG Piperacillin Sod/ Tazobactam Sod/ Dextrose (Zosyn Iv/D5 100ml) 120 ml @ 30 mls/hr Q8H IV 03/12/17 06:00 03/22/17 05:59 03/12/17 05:25 30 MLS/HR Piperacillin Sod/ Tazobactam Sod 1 ea 1 ea UD PRN N/A 03/12/17 01:30 04/11/17 01:29 Vancomycin HCl/ Sodium Chloride (Vancomycin Inj/ Nss 500ml) 532 ml @ 200 mls/hr Q12@0200,1400 IV 03/12/17 14:00 03/22/17 13:59 Objective Vital Signs Date Time Temp Pulse Resp B/P Pulse Ox O2 Delivery O2 Flow Rate FiO2 03/12/17 08:00 Room Air 03/12/17 07:03 36.8 95 20 114/62 95 Room Air 03/12/17 00:30 36.9 92 20 144/72 95 Room Air 03/12/17 00:19 91 18 128/65 93 03/11/17 23:30 97 03/11/17 23:06 97 18 129/94 98 Room Air 03/11/17 22:14 92 18 116/61 94 Room Air 03/11/17 21:21 95 18 129/78 96 Room Air 03/11/17 20:26 36.7 103 24 120/60 94 Room Air Physical Exam General Appearance: no apparent distress, + obese Eyes: normal inspection, EOMI, sclerae normal ENT: normal ENT inspection, hearing grossly normal, pharynx normal Neck: supple, no adenopathy, no JVD, trachea midline Respiratory/Chest: chest non-tender, lungs clear, normal breath sounds, no respiratory distress, no accessory muscle use Cardiovascular: regular rate, rhythm, no edema, no gallop, no JVD, no murmur Abdomen: normal bowel sounds, non tender, soft, no organomegaly Extremities: normal range of motion, non-tender, normal inspection, no pedal edema, no calf tenderness, pelvis stable Neurologic/Psychiatric: behavior clinician II-XII nml as tested, no motor/sensory deficits, alert, normal mood/affect, oriented x 3 Skin: + rash (erythema, slightly warm but not hot, not tender to touch, redness within the border made on admission, receding slightly) Laboratory Results Last 24 Hours Test 03/11/17 21:09 03/11/17 21:21 03/12/17 07:41 03/12/17 07:50 Urine Color YELLOW Urine Appearance CLEAR Urine pH 5.5 Urine Specific [place] 1.019 Urine Protein NEG Urine Glucose (UA) NEG Urine Ketones NEG Urine Occult Blood NEG Urine Nitrite NEG Urine Bilirubin NEG Urine Urobilinogen NEG Urine Leukocyte Esterase NEG White Blood Count 8.81 K/uL 7.84 K/uL Red Blood Count 4.73 M/uL 4.40 M/uL Hemoglobin 14.4 g/dL 13.2 g/dL Hematocrit 43.6 % 41.2 % Mean Corpuscular Volume 92.2 fL 93.6 fL Mean Corpuscular Hemoglobin 30.4 pg 30.0 pg Mean Corpuscular Hemoglobin Concent 33.0 g/dl 32.0 g/dl Platelet Count 249 K/uL 222 K/uL Mean Platelet Volume 9.2 fL 9.4 fL Neutrophils (%) (Auto) 55.3 % 60.9 % Lymphocytes (%) (Auto) 30.4 % 23.2 % Monocytes (%) (Auto) 11.5 % 13.6 % Eosinophils (%) (Auto) 2.3 % 1.9 % Basophils (%) (Auto) 0.3 % 0.3 % Neutrophils # (Auto) 4.87 K/uL 4.77 K/uL Lymphocytes # (Auto) 2.68 K/uL 1.82 K/uL Monocytes # (Auto) 1.01 K/uL 1.07 K/uL Eosinophils # (Auto) 0.20 K/uL 0.15 K/uL Basophils # (Auto) 0.03 K/uL 0.02 K/uL RDW Standard Deviation 46.4 fL 47.4 fL RDW Coefficient of Variation 13.8 % 13.9 % Immature Granulocyte % (Auto) 0.2 % 0.1 % Immature Granulocyte # (Auto) 0.02 K/uL 0.01 K/uL Erythrocyte Sedimentation Rate 49 mm/hr Sodium Level 138 mmol/L 135 mmol/L Potassium Level 4.0 mmol/L 4.8 mmol/L Chloride Level 98 mmol/L 101 mmol/L Carbon Dioxide Level 32 mmol/L 28 mmol/L Anion Gap 8.0 mmol/L 6.0 mmol/L Blood Urea Nitrogen 23 mg/dl 16 mg/dl Creatinine 1.70 mg/dl 1.20 mg/dl Est Creatinine Clear Calc Drug Dose 54.3 ml/min 76.9 ml/min Estimated GFR () 50.0 76.3 Estimated GFR (Non- 43.2 65.8 BUN/Creatinine Ratio 13.3 13.2 Random Glucose 119 mg/dl 343 mg/dl Calcium Level 8.9 mg/dl 8.2 mg/dl Total Bilirubin 0.5 mg/dl Direct Bilirubin < 0.1 mg/dl Aspartate Amino Transf (AST/SGOT) 18 U/L Alanine Aminotransferase (ALT/SGPT) 21 U/L Alkaline Phosphatase 95 U/L C-Reactive Protein 3.55 mg/dl Total Protein 7.2 gm/dl Albumin 3.3 gm/dl Lipase 70 U/L Bedside Glucose 315 mg/dl Magnesium Level 2.3 mg/dl Beta-Hydroxybutyric Acid 18.26 mg/dL Assessment and Plan 61 yo male with cellulitis of left lower extremity after striking leg 8 days ago , also with hematoma on US Left lower extremity cellulitis with failure of outpatient treatment-- failed Bactrim and Keflex responding well to Vancomycin IV, will continue today and likely tomorrow, anticipate PO antibiotics on follow up cultures afebrile, WBC normal with normal differential TONA: evident on admission, Cr up to 1.7 from 0.97 baseline, this AM Cr improving to 1.2 likely cause was the Bactrim, infection and concurrent use of diuretics, ARB , aldactone hold above medications repeat Cr tomorrow, UO adequate, drinking well, no need for IV fluids currently check urine sodium, Cr and urea level Diabetes mellitus--continue usual outpatient dosing of Novolin R 30 units subcutaneous twice a day, Novolin 70/30 10 units subcutaneous 3 times a day, and place on Accu-Cheks before meals and at bedtime with NovoLog coverage per scale hold Metformin while inpatient, rise in Cr CAD/history of [place]/ICM/CHF/hypertension--continue aspirin daily, carvedilol 12.5 mg by mouth twice a day hold Bumex, Losartan, Aldactone due to Cr Hypercholesterolemia--continue simvastatin 40 mg by mouth daily. GERD--continue pantoprazole 40 mg by mouth twice a day. Continue primidone 25 mg by mouth every afternoon. Plan: continue Vancomycin, PO antibiotics in 48 hours and likely d/c home
[2017-03-12] MEDS: VANCOMYCIN INJ 1,600 MG in SODIUM CHLORIDE 0.9% 500ML 500 ML IV SCH (14:09)
[2017-03-12 14:29] VITALS: BMI 49.6
[2017-03-12 15:39] VITALS: BP 102/63; PULSE 82; TEMP 36.7; O2SAT 98
[2017-03-12] MEDS: GLUCOSE 10 TABS/TUBE PO PRN ×2 (15:40→16:12)
[2017-03-12 16:10] VITALS: O2SAT 98
[2017-03-12] MEDS ORDERED: INSULIN HUMAN NPH SC SCH (17:00)
[2017-03-12] MEDS ORDERED: NURSING VERBAL MED ORDER ONE (17:30)
[2017-03-12] MEDS: HYDROCODONE/ACETAMOPHEN 5/325MG TAB PO PRN (18:07)
[2017-03-12] MEDS: PRIMIDONE 50 MG TAB PO SCH (21:24)
[2017-03-12 21:38] VITALS: BP 113/68; PULSE 75
[2017-03-12 23:44] VITALS: PULSE 80; TEMP 36.8; O2SAT 96
[2017-03-13] VITALS: BP 126/71; O2SAT 98
[2017-03-13] MEDS: VANCOMYCIN INJ 1,600 MG in SODIUM CHLORIDE 0.9% 500ML 500 ML IV SCH ×2 (02:06→13:42)
[2017-03-13] MEDS: PIPERACILL/TAZOBAC IV 4.5 GM in DEXTROSE 5% 100ML IV SCH ×3 (06:00→20:59)
[2017-03-13] MEDS: CARVEDILOL 12.5 MG TAB PO SCH ×2 (07:47→21:00)
[2017-03-13] MEDS: CHOLECALCIFEROL 1000 INTER.UNIT TAB PO SCH (07:48)
[2017-03-13] MEDS: ASCORBIC ACID 500 MG TAB PO SCH (07:48)
[2017-03-13] MEDS: ASPIRIN 325 MG ECTAB PO SCH (07:48)
[2017-03-13] MEDS: SIMVASTATIN 40 MG TAB PO SCH (07:48)
[2017-03-13] MEDS: PANTOprazole SOD 40 MG TAB PO SCH ×2 (07:48→21:01)
[2017-03-13] MEDS: CALCIUM 600MG + VIT D 400 IU TAB PO SCH ×2 (07:48→21:02)
[2017-03-13] MEDS: MULTIVITAMIN TAB PO SCH (07:48)
[2017-03-13] MEDS: HYDROCODONE/ACETAMOPHEN 5/325MG TAB PO PRN ×3 (07:54→21:00)
[2017-03-13] MEDS: INSULIN HUMAN REGULAR SC SCH (08:01)
[2017-03-13 08:10] LABS: BASO % 0.2 %; BASO ABS # 0.02 K/uL (0-0.2); COMPLETE YES; EOS % 1.5 %; HEMATOCRIT 39.9 % (42-52); IG% 0.3 %; LYMPH % 15.6 %; LYMPH ABS # 1.55 K/uL (1.2-3.4); MEAN CELL VOLUME 94.5 fL (80-100); MEAN CORPUSCULAR HGB CONC 32.8 g/dl (32-36); MEAN PLATELET VOLUME 9.4 fL (7.4-10.4); MONO % 10.8 %; NEUT % 71.6 %; PLATELET COUNT 209 K/uL (130-400); RED BLOOD COUNT 4.22 M/uL (4.7-6.1); WHITE BLOOD COUNT 9.92 K/uL (4.8-10.8)
[2017-03-13 08:13] VITALS: BP 115/75; PULSE 108; TEMP 36.3; O2SAT 95
[2017-03-13] MEDS ORDERED: INSULIN HUMAN NPH SC ONE ×2 (08:30→11:30)
[2017-03-13] MEDS: INSULIN ASPART 100 UNITS/ML 3 ML PEN SC SCH ×4 (08:36→20:59)
[2017-03-13 08:57] LABS: BUN/CREATININE RATIO 15.7 (10-20); CALCIUM 8.6 mg/dl (8.5-10.1); CREATININE 1.2 mg/dl (0.60-1.40); MAGNESIUM 2.1 mg/dl (1.8-2.4); POTASSIUM 4.6 mmol/L (3.5-5.1)
[2017-03-13 09:08] LABS: BETA-HYDROXYBUTYRATE 38.82 mg/dL (0.2-2.81)
--- NOTE | 2017-03-13 11:39 | Clinical Documentation Query ---
TIRSO Smith : CLINICAL DOCUMENTATION QUERY Patient is a 61 year old male admitted for failed outpatient therapy for left leg cellulitis. H&P and subsequent documentation note "CHF" without further specification regarding acuity and/or type. Echocardiogram from 07/01/11 demonstrated an LVEF of 35-40% with LAD and RCA distribution wall motion abnormalities. Please specify as clinically appropriate. Thank you. In your clinical opinion is this patient being managed for: (x ) Chronic systolic congestive heart failure ( ) Other explanation of clinical findings (Please Explain) ( ) Unable to determine (Please Define) ( ) Need to Discuss ( ) Not Agree The medical record reflects the following clinical findings, treatment, and risk factors. Clinical Indicators: As above Treatment: Bumex, Losartan, Aldactone currently on hold secondary to TONA Risk Factors: Diabetes, hypertension, obesity Please clarify and document your clinical opinion in the progress notes and discharge summary. Terms such as "probable", "suspected", "likely", "questionable", "possible", or "still to be ruled out" are acceptable. IF IN AGREEMENT, YOU MUST DOCUMENT ABOVE DIAGNOSTIC STATEMENT IN DAILY PROGRESS NOTES AND DISCHARGE SUMMARY. This document is not part of the patient's record. Thank You, Tyler Dupont, ELIAN [phone]
[2017-03-13] MEDS ORDERED: PHARMACY GLYCEMIC MGMT CONSULT PRN (13:18)
--- NOTE | 2017-03-13 13:25 | Progress Note ---
Subjective Date of Service: March 13, 2017. Subjective Pt evaluation today including: conversation w/ patient, physical exam, lab review, review of inpatient medication list Pain: less pain today, can ambulate on left leg better PO Intake: adequate, eating less than normal Voiding: no voiding problems less pain, less redness, skin less tense today discussed sugars, had hypoglycemia yesterday and then hyperglycemia this AM patient has no specific plan at home supposed to take Novolin N 50-60 units with breakfast and dinner but he typically just takes in the morning Novolin R 30 units with meals really no consistency with insulin use, he is not very compliant with low carb diet used to take Humalin but his insurance coverage changed he denies every taking Lantus/Levemir with Novolog coverage at meals sugars high today, gave 35 units of Novolin N this AM when he refused to take the 70 units that were ordered little improvement in sugars even after additional 35 units given will consult pharmacy Problem List Medical Problems: (1) Acute kidney injury Status: Acute (2) Cellulitis of left leg Status: Acute (3) Constipation Status: Acute (4) Hematoma of left lower extremity Status: Acute (5) Left sided chest pain Status: Acute (6) LLQ abdominal pain Status: Acute Review of Systems Constitutional: + fatigue, + weakness Skin: + rash (left lower leg redness, pain, hot) All Other Systems: Reviewed and Negative Medications Current Inpatient Medications Medications (Trade) Dose Ordered Sig/Emerson Route Start Time Stop Time Status Last Admin Dose Admin Acetaminophen (Tylenol Tab) 650 mg Q4H PRN PO 03/11/17 23:45 04/10/17 23:44 03/12/17 01:02 650 MG Zolpidem Tartrate (Ambien Tab) 5 mg HSZ PRN PO 03/11/17 23:45 04/10/17 23:44 Ascorbic Acid (Vitamin C Tab) 1,000 mg DAILY PO 03/12/17 08:00 04/11/17 08:59 03/13/17 07:48 1,000 MG Aspirin (Ecotrin Tab) 325 mg DAILY PO 03/12/17 08:00 04/11/17 08:59 03/13/17 07:48 325 MG Carvedilol (Coreg Tab) 12.5 mg BID PO 03/12/17 08:00 04/11/17 08:59 03/13/17 07:47 12.5 MG Cholecalciferol (Vitamin D Tab) 1,000 inter.unit DAILY PO 03/12/17 08:00 04/11/17 08:59 03/13/17 07:48 1,000 INTER.UNIT Acetaminophen/ Hydrocodone Bitart ([place] 5/325 Tab) 1 tab QID PRN PO 03/11/17 23:45 03/25/17 23:44 03/13/17 07:54 1 TAB Insulin Human Regular (novoLIN-R) 30 units BIDM SC 03/12/17 08:00 04/11/17 07:59 03/13/17 08:01 30 UNITS Multivitamins (Multivitamin Tab) 1 tab DAILY PO 03/12/17 08:00 04/11/17 08:59 03/13/17 07:48 1 TAB Pantoprazole Sodium (Protonix Tab) 40 mg BID PO 03/12/17 08:00 04/11/17 08:59 03/13/17 07:48 40 MG Primidone (Mysoline Tab) 25 mg QPM PO 03/12/17 21:00 04/11/17 20:59 03/12/17 21:24 25 MG Simvastatin (Zocor Tab) 40 mg DAILY PO 03/12/17 08:00 04/11/17 08:59 03/13/17 07:48 40 MG Calcium/Vitamin D (Caltrate Plus Tab) 1 tab BID PO 03/12/17 08:00 04/11/17 08:59 03/13/17 07:48 1 TAB Vancomycin HCl (Consult) 1 ea DAILY PRN N/A 03/12/17 01:19 04/11/17 01:18 Ondansetron HCl (Zofran Inj) 4 mg Q6H PRN IV 03/11/17 23:45 04/10/17 23:44 Insulin Aspart (novoLOG ASPART) SLIDING SCALE If C... ACHS SC 03/12/17 06:30 04/11/17 06:59 03/13/17 12:32 16 UNITS Glucose (Glucose 40% Gel) UD PRN PO 03/11/17 23:45 04/10/17 23:44 Glucose (Glucose Chew Tab) 1 tabs UD PRN PO 03/11/17 23:45 04/10/17 23:44 03/12/17 16:12 4 TABS Dextrose (Dextrose 50% 50ML Syringe) 50 ml UD PRN IV 03/11/17 23:45 04/10/17 23:44 Glucagon (Glucagon Inj) 1 mg UD PRN SQ 03/11/17 23:45 04/10/17 23:44 Morphine Sulfate 2 mg 2 mg Q2H PRN IV 03/12/17 01:00 03/26/17 00:59 03/12/17 21:35 2 MG Piperacillin Sod/ Tazobactam Sod/ Dextrose (Zosyn Iv/D5 100ml) 120 ml @ 30 mls/hr Q8H IV 03/12/17 06:00 03/22/17 05:59 03/13/17 06:00 30 MLS/HR Piperacillin Sod/ Tazobactam Sod 1 ea 1 ea UD PRN N/A 03/12/17 01:30 04/11/17 01:29 Vancomycin HCl/ Sodium Chloride (Vancomycin Inj/ Nss 500ml) 532 ml @ 200 mls/hr Q12@0200,1400 IV 03/12/17 14:00 03/22/17 13:59 03/13/17 02:06 200 MLS/HR Insulin Human NPH (novoLIN-N NPH) 50 units BIDM SC 03/12/17 17:00 04/11/17 16:59 Future hold Objective Vital Signs Date Time Temp Pulse Resp B/P Pulse Ox O2 Delivery O2 Flow Rate FiO2 03/13/17 08:13 36.3 108 20 115/75 95 Room Air 03/13/17 08:00 Room Air 03/13/17 00:00 126/71 03/13/17 00:00 98 Room Air 03/12/17 23:44 36.8 80 18 96 Room Air 03/12/17 21:38 75 113/68 03/12/17 16:10 98 Room Air 03/12/17 15:39 36.7 82 18 102/63 98 Room Air Physical Exam General Appearance: no apparent distress, + obese ENT: normal ENT inspection, hearing grossly normal, pharynx normal Neck: supple, no adenopathy, no JVD, trachea midline Respiratory/Chest: chest non-tender, lungs clear, normal breath sounds, no respiratory distress, no accessory muscle use Cardiovascular: regular rate, rhythm, no edema, no gallop, no JVD, no murmur Abdomen: normal bowel sounds, non tender, soft, no organomegaly Extremities: normal range of motion, non-tender, normal inspection, no calf tenderness, pelvis stable, + pedal edema (trace edema in left ankle from infection) Neurologic/Psychiatric: weaver tire cord II-XII nml as tested, no motor/sensory deficits, alert, normal mood/affect, oriented x 3 Skin: + rash (left LE, less redness, less tenderness and slightly less warm today, still warm though and redness not receding yet) Laboratory Results Last 24 Hours Test 03/12/17 15:35 03/12/17 16:08 03/12/17 16:29 03/12/17 17:01 Bedside Glucose 38 mg/dl 51 mg/dl 62 mg/dl 170 mg/dl Test 03/12/17 19:15 03/12/17 20:17 03/13/17 07:33 03/13/17 07:38 Urine Random Creatinine 76.0 mg/dl Urine Random Sodium 18 mEq/L Urine Random Urea Nitrogen 496 mg/dl Bedside Glucose 185 mg/dl 446 mg/dl White Blood Count 9.92 K/uL Red Blood Count 4.22 M/uL Hemoglobin 13.1 g/dL Hematocrit 39.9 % Mean Corpuscular Volume 94.5 fL Mean Corpuscular Hemoglobin 31.0 pg Mean Corpuscular Hemoglobin Concent 32.8 g/dl Platelet Count 209 K/uL Mean Platelet Volume 9.4 fL Neutrophils (%) (Auto) 71.6 % Lymphocytes (%) (Auto) 15.6 % Monocytes (%) (Auto) 10.8 % Eosinophils (%) (Auto) 1.5 % Basophils (%) (Auto) 0.2 % Neutrophils # (Auto) 7.10 K/uL Lymphocytes # (Auto) 1.55 K/uL Monocytes # (Auto) 1.07 K/uL Eosinophils # (Auto) 0.15 K/uL Basophils # (Auto) 0.02 K/uL RDW Standard Deviation 48.1 fL RDW Coefficient of Variation 14.0 % Immature Granulocyte % (Auto) 0.3 % Immature Granulocyte # (Auto) 0.03 K/uL Sodium Level 132 mmol/L Potassium Level 4.6 mmol/L Chloride Level 96 mmol/L Carbon Dioxide Level 23 mmol/L Anion Gap 13.0 mmol/L Blood Urea Nitrogen 19 mg/dl Creatinine 1.20 mg/dl Est Creatinine Clear Calc Drug Dose 76.9 ml/min Estimated GFR () 76.3 Estimated GFR (Non- 65.8 BUN/Creatinine Ratio 15.7 Random Glucose 454 mg/dl Calcium Level 8.6 mg/dl Magnesium Level 2.1 mg/dl Beta-Hydroxybutyric Acid 38.82 mg/dL Test 03/13/17 10:04 03/13/17 11:19 03/13/17 13:00 Bedside Glucose 428 mg/dl 434 mg/dl 304 mg/dl Assessment and Plan 61 yo male with cellulitis of left lower extremity after striking leg 8 days prior to admission, also with hematoma on US Left lower extremity cellulitis with failure of outpatient treatment-- failed Bactrim and Keflex responding well to Vancomycin IV, still not improved well enough to change to PO antibiotics will take it day by day afebrile, WBC normal with normal differential TONA: evident on admission, Cr up to 1.7 from 0.97 baseline, Cr 1.2 two days in a row, adequate UO likely cause was the Bactrim, infection and concurrent use of diuretics, ARB , aldactone hold above medications will resume ARB, Aldactone, Bumex tomorrow Diabetes mellitus-- sugars very labile which from what he describes is the same at home he admits that he is eating a lot less here in the hospital hypoglycemic yesterday after getting NPH 70/30 which was actually inappropriate for him decided to hold Novolin N last evening since he was still recovering from hypoglycemia this AM sugar was 450, ordered 70 units Novolin N (typically takes 50-60) but he only took 35 units? when sugar was still 400, ordered 35 units more sugar now 302, will ask pharmacy to weigh in on dosing he does not think his insurance covers Lantus, Novolog CAD/history of [place]/ICM/CHF/hypertension--continue aspirin daily, carvedilol 12.5 mg by mouth twice a day hold Bumex, Losartan, Aldactone due to Cr likely resume tomorrow chronic systolic heart failure: euvolemic currently, holding Bumex, Losartan, Aldactone due to TONA resume above meds tomorrow AM as Cr is improving Hypercholesterolemia--continue simvastatin 40 mg by mouth daily. GERD--continue pantoprazole 40 mg by mouth twice a day. Continue primidone 25 mg by mouth every afternoon. Plan: continue Vancomycin, consult pharmacy, reassess leg tomorrow, check labs in the AM
[2017-03-13] MEDS ORDERED: NVLNI SQ (14:17)
--- NOTE | 2017-03-13 14:34 | Pharmacy Progress Note ---
Glycemic Control Intl Consult Date of Service March 13, 2017. Scope Glycemic Pharmacist consulted by Dr Ad Garcia on 03/13/17 for glycemic control and to write orders per [facility] inpatient glycemic control protocol Objective Weight (Kilograms): 123.100 Accuchecks BSG (last 24hrs): Test 03/12/17 15:35 03/12/17 16:08 03/12/17 16:29 03/12/17 17:01 Bedside Glucose 38 mg/dl (70-99) 51 mg/dl (70-99) 62 mg/dl (70-99) 170 mg/dl (70-99) Test 03/12/17 20:17 03/13/17 07:33 03/13/17 07:38 03/13/17 10:04 Bedside Glucose 185 mg/dl (70-99) 446 mg/dl (70-99) 428 mg/dl (70-99) Random Glucose 454 mg/dl (70-99) Test 03/13/17 11:19 03/13/17 13:00 Bedside Glucose 434 mg/dl (70-99) 304 mg/dl (70-99) Laboratory Data (last 24hrs) HbA1c Item Value Date Time Hemoglobin A1c 8.2 % H 02/27/17 0812 Estimated Average Glucose 189 mg/dl 02/27/17 0812 Recent Pertinent Medications Outpatient Anti-diabetic Regimen: * Novolin NPH 50 units SQ BIDM * Regular insulin 30 units SQ BIDM * Pt mixes his own insulin The patient is currently receiving: * Basal insulin: NPH 35 -50 units every 12 hours * Correctional Insulin: Novolog Correction per scale ACHS Goal Range: Low 110 mg/dL - High 150 mg/dL Correction Factor: 30 mg/dL/unit * Prandial insulin: Per carb ratio of 1 unit per 10 grams CHO consumed + Regular insulin 30 units SQ BIDM * Oral Agents: On hold for admission Risk Factors for Insulin Resistance: * Infection * Diet Assessment & Plan ASSESSMENT: * 61yo T2DM male with sub-optimal degree of outpatient control per recent A1c = 8.2% on 02/27/17 * Pt reports that he is constantly "chasing" his blood sugar. He has frequent highs and lows. * He verbalized taking NPH 50 units + Regular insulin 30 units SQ BIDM (Med rec stated Novolin 70/30 insulin 10 units SQ TIDM - which is incorrect, [facility] updated/corrected med rec) * Pt stated that he is currently eating less in the hospital than he does at home. * Pt currently with suboptimal inpatient control. Pt with fluctuating critical highs and lows * Pt with low BSG yesterday prior to dinner secondary to double CHO coverage -- > pt ordered large outpatient doses of fixed/scheduled prandial insulin (Regular ) + CR with Novolog. This duplication coupled with reduced diet in house lead to hypoglycemia * Pt with rebound hyperglycemia this morning secondary to basal insulin being held last evening when BSG low. * Pt received ~ 100 units of insulin yesterday with BSGs 315,282,38,185. BSGs today 446, 434 * Outpatient dosing is 160units of insulin per day * Expect 100 units is not enough for patient as this yielded high BSGs this morning. But, 160units of insulin will be too much as diet is reduced as compared to outpatient. * Will change regimen based on an estimated total daily dose of ~ 120 units/ day. This is also consistent with high insulin resistance/high stress weight based dosing. * ADA & AACE recommend a goal blood sugar range 140-180 mg/dl for the majority of critically ill & non-critically ill patients. However, more stringent targets may be selected in individual cases. Will utilize more stringent goal of 110-140mg/dl based on patient age & comorbidities. Additionally, tighter glycemic control is warranted to facilitate wound/infection healing. PLAN FOR INPATIENT GLYCEMIC CONTROL: Utilize SQ basal bolus insulin regimen based on an estimated total daily dose of ~ 120 units/day. Split/distribute regimen 50% basal:50% prandial insulin * Continue to hold outpatient oral diabetes medications * Oral agents are not recommended for inpatient use d/t drug interactions, changing PO intake, and difficulty titrating for acute hyper/hypoglycemia. ADA recommends re-initiating outpatient oral agents 1-2 days prior to discharge if/ when appropriate if they were held on admission. * Basal insulin * NPH 30 units SQ BIDM * Will start this dosing 5/18 AM as pt has already received 2 doses of NPH 35 units today * Bolus Insulin * STOP/DISCONTINUE Scheduled Regular Insulin 30 units SQ BID as this is duplicate carb coverage * Continue NovoLog per scale ACHS or Q6hrs while NPO. Additional checks + coverage at 00 & 0400 since basal insulin dose will be held at dinner today (pt already received 2 doses of basal today) * Goal Range: Low 110 mg/dL - High 140 mg/dL * Correction Factor: 30 mg/dL/unit --> will change to 15 tomorrow morning when new basal insulin orders initiated * Nutritional / Prandial insulin per carb ratio of 1 unit per 10 grams CHO consumed --> will change to 4 tomorrow when new basal insulin orders are initiated * Please note that the plan above was derived based on current level of insulin resistance and hospital stress. These recommendations are appropriate for inpatient admission only. Plan of care upon discharge will need to be reassessed to avoid potential outpatient hypo/hyperglycemia. Thank you.
[2017-03-13 15:19] VITALS: BP 154/76; PULSE 92; TEMP 36.5; O2SAT 98
[2017-03-13 15:30] VITALS: BMI 49.6
[2017-03-13] MEDS: GLUCOSE 10 TABS/TUBE PO PRN (15:39)
[2017-03-13 16:04] VITALS: O2SAT 98
[2017-03-13] MEDS: PRIMIDONE 50 MG TAB PO SCH (21:01)
[2017-03-14] VITALS: BP 108/62; PULSE 87; TEMP 36.7; O2SAT 96; O2SAT 98
[2017-03-14] MEDS: MoRPHine SULFATE 2 MG/ML CARP IV PRN ×3 (00:17→22:37)
[2017-03-14] MEDS: INSULIN ASPART 100 UNITS/ML 3 ML PEN SC SCH ×7 (00:22→22:31)
[2017-03-14] MEDS ORDERED: VANCOMYCIN TROUGH ONE (01:30)
[2017-03-14] MEDS: VANCOMYCIN INJ 1,600 MG in SODIUM CHLORIDE 0.9% 500ML 500 ML IV SCH ×2 (02:21→13:49)
[2017-03-14] MEDS: PIPERACILL/TAZOBAC IV 4.5 GM in DEXTROSE 5% 100ML IV SCH ×3 (05:30→22:24)
[2017-03-14] MEDS: HYDROCODONE/ACETAMOPHEN 5/325MG TAB PO PRN ×3 (05:31→18:28)
[2017-03-14 07:19] VITALS: BP 124/75; PULSE 86; TEMP 36.7; O2SAT 95
[2017-03-14 07:40] LABS: BASO % 0.3 %; BASO ABS # 0.02 K/uL (0-0.2); COMPLETE YES; EOS % 3.2 %; HEMATOCRIT 37.7 % (42-52); IG% 0.3 %; LYMPH % 24.4 %; LYMPH ABS # 1.69 K/uL (1.2-3.4); MEAN CELL VOLUME 93.1 fL (80-100); MEAN CORPUSCULAR HEMOGLOBIN 30.4 pg (25-34); MEAN CORPUSCULAR HGB CONC 32.6 g/dl (32-36); MEAN PLATELET VOLUME 9.1 fL (7.4-10.4); MONO % 13.7 %; NEUT % 58.1 %; PLATELET COUNT 208 K/uL (130-400); RED BLOOD COUNT 4.05 M/uL (4.7-6.1); WHITE BLOOD COUNT 6.92 K/uL (4.8-10.8)
[2017-03-14] MEDS ORDERED: BUMETANIDE 1 MG TAB PO SCH (08:00)
[2017-03-14] MEDS: SPIRONOLACTONE 25 MG TAB PO SCH (08:03)
[2017-03-14] MEDS: MULTIVITAMIN TAB PO SCH (08:04)
[2017-03-14] MEDS: PANTOprazole SOD 40 MG TAB PO SCH ×2 (08:04→22:27)
[2017-03-14] MEDS: LOSARTAN POTASSIUM 50 MG TAB PO SCH (08:04)
[2017-03-14] MEDS: CARVEDILOL 12.5 MG TAB PO SCH ×2 (08:04→22:26)
[2017-03-14] MEDS: CALCIUM 600MG + VIT D 400 IU TAB PO SCH ×2 (08:04→22:26)
[2017-03-14] MEDS: SIMVASTATIN 40 MG TAB PO SCH (08:04)
[2017-03-14] MEDS: CHOLECALCIFEROL 1000 INTER.UNIT TAB PO SCH (08:04)
[2017-03-14] MEDS: ASPIRIN 325 MG ECTAB PO SCH (08:04)
[2017-03-14] MEDS: ASCORBIC ACID 500 MG TAB PO SCH (08:05)
--- NOTE | 2017-03-14 08:06 | Progress Note ---
Subjective Date of Service: March 14, 2017. Subjective Pt evaluation today including: conversation w/ patient, physical exam, lab review, review of inpatient medication list Pain: no real change in pain today PO Intake: adequate Voiding: no voiding problems still with redness and pain with ambulation, although he feels improved slightly no fever/chills, eating well, urinating well discussed resuming diuretic, asked to hold an additional day because he has difficulty getting to bathroom and cannot use urinal hypoglycemia again yesterday, pharmacy now managing sugars Problem List Medical Problems: (1) Acute kidney injury Status: Acute (2) Cellulitis of left leg Status: Acute (3) Constipation Status: Acute (4) Hematoma of left lower extremity Status: Acute (5) Left sided chest pain Status: Acute (6) LLQ abdominal pain Status: Acute Review of Systems Skin: + rash (left LE, slightly improved, tender) All Other Systems: Reviewed and Negative Medications Current Inpatient Medications Medications (Trade) Dose Ordered Sig/Emerson Route Start Time Stop Time Status Last Admin Dose Admin Acetaminophen (Tylenol Tab) 650 mg Q4H PRN PO 03/11/17 23:45 04/10/17 23:44 03/12/17 01:02 650 MG Zolpidem Tartrate (Ambien Tab) 5 mg HSZ PRN PO 03/11/17 23:45 04/10/17 23:44 Ascorbic Acid (Vitamin C Tab) 1,000 mg DAILY PO 03/12/17 08:00 04/11/17 08:59 03/13/17 07:48 1,000 MG Aspirin (Ecotrin Tab) 325 mg DAILY PO 03/12/17 08:00 04/11/17 08:59 03/13/17 07:48 325 MG Carvedilol (Coreg Tab) 12.5 mg BID PO 03/12/17 08:00 04/11/17 08:59 03/13/17 21:00 12.5 MG Cholecalciferol (Vitamin D Tab) 1,000 inter.unit DAILY PO 03/12/17 08:00 04/11/17 08:59 03/13/17 07:48 1,000 INTER.UNIT Acetaminophen/ Hydrocodone Bitart ([place] 5/325 Tab) 1 tab QID PRN PO 03/11/17 23:45 03/25/17 23:44 03/14/17 05:31 1 TAB Multivitamins (Multivitamin Tab) 1 tab DAILY PO 03/12/17 08:00 04/11/17 08:59 03/13/17 07:48 1 TAB Pantoprazole Sodium (Protonix Tab) 40 mg BID PO 03/12/17 08:00 04/11/17 08:59 03/13/17 21:01 40 MG Primidone (Mysoline Tab) 25 mg QPM PO 03/12/17 21:00 04/11/17 20:59 03/13/17 21:01 25 MG Simvastatin (Zocor Tab) 40 mg DAILY PO 03/12/17 08:00 04/11/17 08:59 03/13/17 07:48 40 MG Calcium/Vitamin D (Caltrate Plus Tab) 1 tab BID PO 03/12/17 08:00 04/11/17 08:59 03/13/17 21:02 1 TAB Vancomycin HCl (Consult) 1 ea DAILY PRN N/A 03/12/17 01:19 04/11/17 01:18 Ondansetron HCl (Zofran Inj) 4 mg Q6H PRN IV 03/11/17 23:45 04/10/17 23:44 Glucose (Glucose 40% Gel) UD PRN PO 03/11/17 23:45 04/10/17 23:44 Glucose (Glucose Chew Tab) 1 tabs UD PRN PO 03/11/17 23:45 04/10/17 23:44 03/13/17 15:39 8 TABS Dextrose (Dextrose 50% 50ML Syringe) 50 ml UD PRN IV 03/11/17 23:45 04/10/17 23:44 Glucagon (Glucagon Inj) 1 mg UD PRN SQ 03/11/17 23:45 04/10/17 23:44 Morphine Sulfate 2 mg 2 mg Q2H PRN IV 03/12/17 01:00 03/26/17 00:59 03/14/17 00:17 2 MG Piperacillin Sod/ Tazobactam Sod/ Dextrose (Zosyn Iv/D5 100ml) 120 ml @ 30 mls/hr Q8H IV 03/12/17 06:00 03/22/17 05:59 03/14/17 05:30 30 MLS/HR Piperacillin Sod/ Tazobactam Sod 1 ea 1 ea UD PRN N/A 03/12/17 01:30 04/11/17 01:29 Vancomycin HCl/ Sodium Chloride (Vancomycin Inj/ Nss 500ml) 532 ml @ 200 mls/hr Q12@0200,1400 IV 03/12/17 14:00 03/22/17 13:59 03/14/17 02:21 200 MLS/HR Miscellaneous Information (Consult Glycemic Management Pharmacy) 1 ea UD PRN N/A 03/13/17 13:18 04/12/17 13:17 Insulin Human NPH (novoLIN-N NPH) 30 units BIDM SC 03/14/17 08:00 04/13/17 07:59 Insulin Aspart (novoLOG ASPART) SLIDING SCALE If C... ACHS SC 03/14/17 06:30 04/13/17 06:29 Bumetanide (Bumex Tab) 2 mg QAM PO 03/14/17 08:00 04/13/17 07:59 Losartan Potassium (coZAAR TAB) 50 mg QAM PO 03/14/17 08:00 04/13/17 07:59 Spironolactone (Aldactone Tab) 25 mg QAM PO 03/14/17 08:00 04/13/17 07:59 Objective Vital Signs Date Time Temp Pulse Resp B/P Pulse Ox O2 Delivery O2 Flow Rate FiO2 03/14/17 07:19 36.7 86 18 124/75 95 Room Air 03/14/17 00:00 36.7 87 20 108/62 96 Room Air 03/14/17 00:00 98 Room Air 03/13/17 16:04 98 Room Air 03/13/17 15:19 36.5 92 20 154/76 98 Room Air 03/13/17 08:13 36.3 108 20 115/75 95 Room Air Physical Exam General Appearance: no apparent distress, + obese Neck: supple, no adenopathy, no JVD, trachea midline Respiratory/Chest: chest non-tender, lungs clear, normal breath sounds, no respiratory distress, no accessory muscle use Cardiovascular: regular rate, rhythm, no gallop, no JVD, no murmur Abdomen: normal bowel sounds, non tender, soft, no organomegaly Extremities: normal range of motion, non-tender, normal inspection, no calf tenderness, pelvis stable, + pedal edema (left ankle edema) Neurologic/Psychiatric: strategic partnership specialist II-XII nml as tested, no motor/sensory deficits, alert, normal mood/affect, oriented x 3 Skin: + rash (erythema, no real improvement since yesterday but again not progressing past borders, tender, hot) Laboratory Results Last 24 Hours Test 03/13/17 10:04 03/13/17 11:19 03/13/17 13:00 03/13/17 15:37 Bedside Glucose 428 mg/dl 434 mg/dl 304 mg/dl 43 mg/dl Test 03/13/17 15:40 03/13/17 16:03 03/13/17 16:15 03/13/17 16:32 Bedside Glucose 38 mg/dl 38 mg/dl 54 mg/dl 57 mg/dl Test 03/13/17 16:58 03/13/17 20:38 03/14/17 00:11 03/14/17 01:36 Bedside Glucose 64 mg/dl 74 mg/dl 207 mg/dl Vancomycin Level Trough 15.9 mcg/ml Test 03/14/17 04:08 03/14/17 06:50 Bedside Glucose 245 mg/dl White Blood Count 6.92 K/uL Red Blood Count 4.05 M/uL Hemoglobin 12.3 g/dL Hematocrit 37.7 % Mean Corpuscular Volume 93.1 fL Mean Corpuscular Hemoglobin 30.4 pg Mean Corpuscular Hemoglobin Concent 32.6 g/dl Platelet Count 208 K/uL Mean Platelet Volume 9.1 fL Neutrophils (%) (Auto) 58.1 % Lymphocytes (%) (Auto) 24.4 % Monocytes (%) (Auto) 13.7 % Eosinophils (%) (Auto) 3.2 % Basophils (%) (Auto) 0.3 % Neutrophils # (Auto) 4.02 K/uL Lymphocytes # (Auto) 1.69 K/uL Monocytes # (Auto) 0.95 K/uL Eosinophils # (Auto) 0.22 K/uL Basophils # (Auto) 0.02 K/uL RDW Standard Deviation 47.1 fL RDW Coefficient of Variation 13.7 % Immature Granulocyte % (Auto) 0.3 % Immature Granulocyte # (Auto) 0.02 K/uL Assessment and Plan 61 yo male with cellulitis of left lower extremity after striking leg 8 days prior to admission, also with hematoma on US Left lower extremity cellulitis with failure of outpatient treatment-- failed Bactrim and Keflex continue Vancomycin and Zosyn, add Clindamycin today as there is no improvement in redness, warmth or tenderness in past 36 hours will take it day by day, not ready for discharge yet afebrile, WBC normal with normal differential if no improvement tomorrow, will ask ID to weigh in TONA: evident on admission, Cr up to 1.7 from 0.97 baseline, resolved for 2 days , adequate UO likely cause was the Bactrim, infection and concurrent use of diuretics, ARB , aldactone held above medications initially will resume ARB, Aldactone Diabetes mellitus-- sugars very labile which from what he describes is the same at home he admits that he is eating a lot less here in the hospital hypoglycemic again yesterday pharmacy now managing NPH 30 BID and Novolog coverage, started this dose today, see how he responds CAD/history of GA/ICM/CHF/hypertension--continue aspirin daily, carvedilol 12.5 mg by mouth twice a day held Bumex, Losartan, Aldactone due to Cr resume Losartan and Aldactone today, hold on Bumex one more day chronic systolic heart failure: euvolemic currently, holding Bumex, Losartan, Aldactone due to TONA see above Hypercholesterolemia--continue simvastatin 40 mg by mouth daily. GERD--continue pantoprazole 40 mg by mouth twice a day. Continue primidone 25 mg by mouth every afternoon. Plan: add Clindamycin and look for more clinical improvement, follow sugars, remain inpatient today, reassess tomorrow
[2017-03-14] MEDS: INSULIN HUMAN NPH SC SCH ×2 (08:11→17:00)
[2017-03-14 08:22] LABS: MAGNESIUM 2.2 mg/dl (1.8-2.4); POTASSIUM 4.5 mmol/L (3.5-5.1)
[2017-03-14 08:45] LABS: CALCIUM 8.2 mg/dl (8.5-10.1)
[2017-03-14] MEDS: CLINDAMYCIN IV 600 MG in DEXTROSE 5% ADD-VANTAGE 50ML 50 ML IV SCH ×2 (08:46→18:28)
[2017-03-14] MEDS ORDERED: INSULIN ASPART 100 UNITS/ML 3 ML PEN SC STA (10:09)
--- NOTE | 2017-03-14 10:46 | Pharmacy Progress Note ---
Glycemic Control: Progress Nt Date of Service March 14, 2017. Scope Glycemic Pharmacist consulted for glycemic control and to write orders per [facility] inpatient glycemic control protocol. Objective Accuchecks BSG (last 24hrs): Test 03/13/17 11:19 03/13/17 13:00 03/13/17 15:37 03/13/17 15:40 Bedside Glucose 434 mg/dl (70-99) 304 mg/dl (70-99) 43 mg/dl (70-99) 38 mg/dl (70-99) Test 03/13/17 16:03 03/13/17 16:15 03/13/17 16:32 03/13/17 16:58 Bedside Glucose 38 mg/dl (70-99) 54 mg/dl (70-99) 57 mg/dl (70-99) 64 mg/dl (70-99) Test 03/13/17 20:38 03/14/17 00:11 03/14/17 04:08 03/14/17 06:50 Bedside Glucose 74 mg/dl (70-99) 207 mg/dl (70-99) 245 mg/dl (70-99) Random Glucose 244 mg/dl (70-99) Laboratory Data (last 24hrs) Test 03/14/17 06:50 Anion Gap 5.0 mmol/L BUN/Creatinine Ratio 15.0 Blood Urea Nitrogen 15 mg/dl Creatinine 1.00 mg/dl Potassium Level 4.5 mmol/L Sodium Level 136 mmol/L White Blood Count 6.92 K/uL Red Blood Count 4.05 M/uL Hemoglobin 12.3 g/dL Hematocrit 37.7 % Mean Corpuscular Volume 93.1 fL Mean Corpuscular Hemoglobin 30.4 pg Mean Corpuscular Hemoglobin Concent 32.6 g/dl Platelet Count 208 K/uL Mean Platelet Volume 9.1 fL Neutrophils (%) (Auto) 58.1 % Lymphocytes (%) (Auto) 24.4 % Monocytes (%) (Auto) 13.7 % Eosinophils (%) (Auto) 3.2 % Basophils (%) (Auto) 0.3 % Neutrophils # (Auto) 4.02 K/uL Lymphocytes # (Auto) 1.69 K/uL Monocytes # (Auto) 0.95 K/uL Eosinophils # (Auto) 0.22 K/uL Basophils # (Auto) 0.02 K/uL Recent Pertinent Medications Outpatient Anti-diabetic Regimen: * Novolin NPH 50 units SQ BIDM * Regular insulin 30 units SQ BIDM * Pt mixes his own insulin The patient is currently receiving: * Basal insulin: NPH 35 units BID (yesterday was admin at breakfast and *lunch*). Decreased to 30 units BID starting today. * Correctional Insulin: Novolog Correction per scale ACHS Goal Range: Low 110 mg/dL - High 150 mg/dL Correction Factor: 15 mg/dL/unit * Prandial insulin: Per carb ratio of 1 unit per 4 grams CHO consumed * Oral Agents: On hold for admission Risk Factors for Insulin Resistance: * Cellulitis - not improving rapidly * Diet: T2DM/AHA Assessment & Plan ASSESSMENT: 03/13/17 * 61yo T2DM male with sub-optimal degree of outpatient control per recent A1c = 8.2% on 02/27/17 * Pt reports that he is constantly "chasing" his blood sugar. He has frequent highs and lows. * He verbalized taking NPH 50 units + Regular insulin 30 units SQ BIDM (Med rec stated Novolin 70/30 insulin 10 units SQ TIDM - which is incorrect, [facility] updated/corrected med rec) * Pt stated that he is currently eating less in the hospital than he does at home. * Pt currently with suboptimal inpatient control. Pt with fluctuating critical highs and lows * Pt with low BSG yesterday prior to dinner secondary to double CHO coverage -- > pt ordered large outpatient doses of fixed/scheduled prandial insulin (Regular ) + CR with Novolog. This duplication coupled with reduced diet in house lead to hypoglycemia * Pt with rebound hyperglycemia this morning secondary to basal insulin being held last evening when BSG low. * Pt received ~ 100 units of insulin yesterday with BSGs 315,282,38,185. BSGs today 446, 434 * Outpatient dosing is 160units of insulin per day * Expect 100 units is not enough for patient as this yielded high BSGs this morning. But, 160units of insulin will be too much as diet is reduced as compared to outpatient. * Will change regimen based on an estimated total daily dose of ~ 120 units/ day. This is also consistent with high insulin resistance/high stress weight based dosing. * ADA & AACE recommend a goal blood sugar range 140-180 mg/dl for the majority of critically ill & non-critically ill patients. However, more stringent targets may be selected in individual cases. Will utilize more stringent goal of 110-140mg/dl based on patient age & comorbidities. Additionally, tighter glycemic control is warranted to facilitate wound/infection healing. 03/14/17 * Repeat severe hypoglycemia yesterday at dinner 2nd receiving NPH at breakfast and *lunch* instead of breakfast and *dinner*. * BSG's increased significantly overnight, requiring 7 units of Novolog. AM fasting BSG still very elevated to 341 mg/dL despite this. Will continue two overnight BSG checks, but will tighten correction * Regular insulin 30 units BIDM was discontinued yesterday and started much tighter Novolog coverage today. However, patient refused full recommended dose of 30 units *Novolog* at breakfast today 2nd concern for hypoglycemia. Patient received 15 units instead. RN re-checked BSG's 1 hr later, which were >400 mg/ dL. Patient then received a 2nd 15 units of Novolog. However, this was not administered until ~1015 therefore BSG's at lunch will likely be "falsely" elevated as Novolog will not have taken full effect. Will significantly loosen Novolog coverage at lunch only to prevent stacking, especially as dinner BSG's have been severely hypoglycemic x last 2 days PLAN FOR INPATIENT GLYCEMIC CONTROL: * Holding outpatient oral diabetes medications * Basal insulin with NPH 30 units SQ BIDM * Correctional Insulin with NOVOLOG per scale ACHS or Q6hrs while NPO - additional checks at 0000,0400 * Goal Range: Low 110 mg/dL - High 140 mg/dL * Correction Factor: 15 mg/dL/unit (25 mg/dL/unit at lunch today only) * Nutritional / Prandial insulin per carb ratio of 1 unit per 4 grams CHO consumed (per 7 grams CHO consumed at lunch today only) * Please note that the plan above was derived based on current level of insulin resistance and hospital stress. These recommendations are appropriate for inpatient admission only. Plan of care upon discharge will need to be reassessed to avoid potential outpatient hypo/hyperglycemia. Thank you.
--- NOTE | 2017-03-14 14:16 | Pharmacy Progress Note ---
Pharmacy Abx Dose Progress Nt Date of Service March 14, 2017. Pharmacy Dosing Scope The patient is currently receiving the following antimicrobial agents per Pharmacy consult: * vancomycin 1600 mg IV every 12 hours - day #3 * piperacillin/tazobactam 4.5 g IV every 8 hours - day #3 * clindamycin 600mg IV every 8 hours - day #1 Objective Height (Feet): 5 Height (Inches): 2.00 Weight (Kilograms): 123.100 Vital Signs (Past 12Hrs) Vital Signs Past 12 Hours Date Time Temp Pulse Resp B/P Pulse Ox O2 Delivery O2 Flow Rate FiO2 03/14/17 08:00 Room Air 03/14/17 07:19 36.7 86 18 124/75 95 Room Air Lab Results (24Hrs) Test 03/14/17 00:11 03/14/17 01:36 03/14/17 04:08 03/14/17 06:50 Bedside Glucose 207 mg/dl (70-99) 245 mg/dl (70-99) Vancomycin Level Trough 15.9 mcg/ml (SEE COMMENT) White Blood Count 6.92 K/uL (4.8-10.8) Red Blood Count 4.05 M/uL (4.7-6.1) Hemoglobin 12.3 g/dL (14.0-18.0) Hematocrit 37.7 % (42-52) Mean Corpuscular Volume 93.1 fL (80-100) Mean Corpuscular Hemoglobin 30.4 pg (25-34) Mean Corpuscular Hemoglobin Concent 32.6 g/dl (32-36) Platelet Count 208 K/uL (130-400) Mean Platelet Volume 9.1 fL (7.4-10.4) Neutrophils (%) (Auto) 58.1 % Lymphocytes (%) (Auto) 24.4 % Monocytes (%) (Auto) 13.7 % Eosinophils (%) (Auto) 3.2 % Basophils (%) (Auto) 0.3 % Neutrophils # (Auto) 4.02 K/uL (1.4-6.5) Lymphocytes # (Auto) 1.69 K/uL (1.2-3.4) Monocytes # (Auto) 0.95 K/uL (0.11-0.59) Eosinophils # (Auto) 0.22 K/uL (0-0.5) Basophils # (Auto) 0.02 K/uL (0-0.2) RDW Standard Deviation 47.1 fL (36.4-46.3) RDW Coefficient of Variation 13.7 % (11.5-14.5) Immature Granulocyte % (Auto) 0.3 % Immature Granulocyte # (Auto) 0.02 K/uL (0.00-0.02) Sodium Level 136 mmol/L (136-145) Potassium Level 4.5 mmol/L (3.5-5.1) Chloride Level 100 mmol/L (98-107) Carbon Dioxide Level 31 mmol/L (21-32) Anion Gap 5.0 mmol/L (3-11) Blood Urea Nitrogen 15 mg/dl (7-18) Creatinine 1.00 mg/dl (0.60-1.40) Est Creatinine Clear Calc Drug Dose 92.3 ml/min Estimated GFR () 95.1 Estimated GFR (Non- 82.0 BUN/Creatinine Ratio 15.0 (10-20) Random Glucose 244 mg/dl (70-99) Calcium Level 8.2 mg/dl (8.5-10.1) Magnesium Level 2.2 mg/dl (1.8-2.4) Risk Factors for Resistance * Antimicrobial use within the last 90 days: Keflex/Bactrim DATA MODELING ARCHITECT Assessment & Plan Assessment 61 year old male receiving vancomycin, piperacillin/tazobactam, and clindamycin for treatment of LLE cellulitis Currently, lack of improvement with Vanco and Zosyn - clinda added today. Plan Vancomycin: * Trough level of 15.9 mcg/mL is therapeutic * Continue dose of 1600 mg IV every 12 hours * Goal trough level for cellulitis: 15 to 20 mcg/mL * Follow up with further vancomycin levels in 3-5 days Piperacillin/tazobactam: * Continue 4.5 g IV extended infusion every 8 hours for CrCl greater than 20 mL/ min * higher dose chosen for BMI >35 kg/m2 Clindamycin: * not a pharmacy consult * added today due to lack of improvement within the last 26 hours Pharmacy will continue to follow and will adjust dose/frequency as necessary. Thank you.
[2017-03-14 15:37] VITALS: BMI 49.6
[2017-03-14 16:08] VITALS: O2SAT 98
[2017-03-14 16:27] VITALS: BP 120/80; PULSE 84; TEMP 36.3; O2SAT 97
--- NOTE | 2017-03-14 21:20 | Pharmacy Progress Note ---
Glycemic: Assessment & Plan Date of Service March 14, 2017. Assessment & Plan Pre-dinner BSG dropped again - RN instructed by glycemic [facility] to hold both Novolog and NPH doses HS BSG now up to 182. Hypoglycemia earlier most likely from stacking of Novolog doses plus the NPH. Since his BSGs were high this AM, he will still need some NPH tonight. Will plan to reduce further to 25 units instead of 30. Glycemic pharmacist to f/u in the AM. * Please note that the plan above was derived based on current level of insulin resistance and hospital stress. These recommendations are appropriate for inpatient admission only. Plan of care upon discharge will need to be reassessed to avoid potential outpatient hypo/hyperglycemia.
[2017-03-14] MEDS ORDERED: INSULIN HUMAN NPH SC ONE (21:30)
[2017-03-14] MEDS: PRIMIDONE 50 MG TAB PO SCH (22:27)
[2017-03-15] VITALS: BP 119/65; PULSE 89; TEMP 36.8; O2SAT 96; O2SAT 98
[2017-03-15] MEDS: HYDROCODONE/ACETAMOPHEN 5/325MG TAB PO PRN ×3 (00:15→11:42)
[2017-03-15] MEDS: INSULIN ASPART 100 UNITS/ML 3 ML PEN SC SCH ×2 (00:15→03:58)
[2017-03-15] MEDS: CLINDAMYCIN IV 600 MG in DEXTROSE 5% ADD-VANTAGE 50ML 50 ML IV SCH ×2 (02:02→08:58)
[2017-03-15] MEDS: VANCOMYCIN INJ 1,600 MG in SODIUM CHLORIDE 0.9% 500ML 500 ML IV SCH ×2 (02:02→13:13)
[2017-03-15] MEDS: PIPERACILL/TAZOBAC IV 4.5 GM in DEXTROSE 5% 100ML IV SCH (05:28)
[2017-03-15] MEDS ORDERED: INSULIN ASPART 100 UNITS/ML 3 ML PEN SC SCH ×2 (06:30→11:00)
[2017-03-15] MEDS ORDERED: INSULIN HUMAN NPH SC SCH (08:00)
[2017-03-15 08:13] VITALS: BP 140/90; PULSE 77; TEMP 36.5; O2SAT 98
[2017-03-15] MEDS: SPIRONOLACTONE 25 MG TAB PO SCH (08:47)
[2017-03-15] MEDS: SIMVASTATIN 40 MG TAB PO SCH (08:48)
[2017-03-15] MEDS: ASCORBIC ACID 500 MG TAB PO SCH (08:48)
[2017-03-15] MEDS: ASPIRIN 325 MG ECTAB PO SCH (08:48)
[2017-03-15] MEDS: CHOLECALCIFEROL 1000 INTER.UNIT TAB PO SCH (08:48)
[2017-03-15] MEDS: CALCIUM 600MG + VIT D 400 IU TAB PO SCH (08:49)
[2017-03-15] MEDS: CARVEDILOL 12.5 MG TAB PO SCH (08:49)
[2017-03-15] MEDS: LOSARTAN POTASSIUM 50 MG TAB PO SCH (08:49)
[2017-03-15] MEDS: MULTIVITAMIN TAB PO SCH (08:49)
[2017-03-15] MEDS: PANTOprazole SOD 40 MG TAB PO SCH (08:50)
[2017-03-15] MEDS: MoRPHine SULFATE 2 MG/ML CARP IV PRN (08:51)
--- NOTE | 2017-03-15 09:06 | Pharmacy Progress Note ---
Glycemic Control: Progress Nt Date of Service March 15, 2017. Scope Glycemic Pharmacist consulted for glycemic control and to write orders per [facility] inpatient glycemic control protocol. Objective Accuchecks BSG (last 24hrs): Test 03/14/17 11:55 03/14/17 16:18 03/14/17 16:55 03/14/17 21:14 Bedside Glucose 303 mg/dl (70-99) 49 mg/dl (70-99) 64 mg/dl (70-99) 182 mg/dl (70-99) Test 03/15/17 00:10 03/15/17 03:57 Bedside Glucose 226 mg/dl (70-99) 116 mg/dl (70-99) Recent Pertinent Medications Outpatient Anti-diabetic Regimen: * Novolin NPH 50 units SQ BIDM * Regular insulin 30 units SQ BIDM * Pt mixes his own insulin The patient is currently receiving: * Basal insulin: NPH 30 units BID, decreased to 25 units x1 (admin at HS yesterday) * Correctional Insulin: Novolog Correction per scale ACHS Goal Range: Low 110 mg/dL - High 140 mg/dL Correction Factor: 15 mg/dL/unit * Prandial insulin: Per carb ratio of 1 unit per 4 grams CHO consumed * Oral Agents: On hold Risk Factors for Insulin Resistance: * Cellulitis - improving slowly * Diet: T2DM/AHA Assessment & Plan ASSESSMENT: 03/13/17 * 61yo T2DM male with sub-optimal degree of outpatient control per recent A1c = 8.2% on 02/27/17 * Pt reports that he is constantly "chasing" his blood sugar. He has frequent highs and lows. * He verbalized taking NPH 50 units + Regular insulin 30 units SQ BIDM (Med rec stated Novolin 70/30 insulin 10 units SQ TIDM - which is incorrect, [facility] updated/corrected med rec) * Pt stated that he is currently eating less in the hospital than he does at home. * Pt currently with suboptimal inpatient control. Pt with fluctuating critical highs and lows * Pt with low BSG yesterday prior to dinner secondary to double CHO coverage -- > pt ordered large outpatient doses of fixed/scheduled prandial insulin (Regular ) + CR with Novolog. This duplication coupled with reduced diet in house lead to hypoglycemia * Pt with rebound hyperglycemia this morning secondary to basal insulin being held last evening when BSG low. * Pt received ~ 100 units of insulin yesterday with BSGs 315,282,38,185. BSGs today 446, 434 * Outpatient dosing is 160units of insulin per day * Expect 100 units is not enough for patient as this yielded high BSGs this morning. But, 160units of insulin will be too much as diet is reduced as compared to outpatient. * Will change regimen based on an estimated total daily dose of ~ 120 units/ day. This is also consistent with high insulin resistance/high stress weight based dosing. * ADA & AACE recommend a goal blood sugar range 140-180 mg/dl for the majority of critically ill & non-critically ill patients. However, more stringent targets may be selected in individual cases. Will utilize more stringent goal of 110-140mg/dl based on patient age & comorbidities. Additionally, tighter glycemic control is warranted to facilitate wound/infection healing. 03/14/17 * Repeat severe hypoglycemia yesterday at dinner 2nd receiving NPH at breakfast and *lunch* instead of breakfast and *dinner*. * BSG's increased significantly overnight, requiring 7 units of Novolog. AM fasting BSG still very elevated to 341 mg/dL despite this. Will continue two overnight BSG checks, but will tighten correction * Regular insulin 30 units BIDM was discontinued yesterday and started much tighter Novolog coverage today. However, patient refused full recommended dose of 30 units *Novolog* at breakfast today 2nd concern for hypoglycemia. Patient received 15 units instead. RN re-checked BSG's 1 hr later, which were >400 mg/ dL. Patient then received a 2nd 15 units of Novolog. However, this was not administered until ~1015 therefore BSG's at lunch will likely be "falsely" elevated as Novolog will not have taken full effect. Will significantly loosen Novolog coverage at lunch only to prevent stacking, especially as dinner BSG's have been severely hypoglycemic x last 2 days 03/15/17 * Patient again hypoglycemic at dinner yesterday 2nd pt refusal of full dose of Novolog at breakfast, causing stacking at lunch (despite less aggressive CF/CR). * Will decrease NPH as the peak from breakfast admin is likely contributing to dinner hypoglycemia. Will also decrease PM NPH as the 25 units admin yesterday contributed to a good fasting BSG today of 116 mg/dL (per RN) * Will significantly loosen lunch Novolog only to help prevent severe dinner hypoglycemia. Will essentially aim to correct high BSG's only. Will add in a VERY high carb ratio with the intent that this will provide very little insulin for CHO coverage but will make sure that CHO are counted/reported * Will slightly loosen CHO ratio at breakfast and dinner * Patient required a little insulin overnight. But OK to decrease from 2 checks to 1 check overnight PLAN FOR INPATIENT GLYCEMIC CONTROL: * Holding outpatient oral diabetes medications * Decrease basal insulin with NPH 25 units SQ BIDM * Correctional Insulin with NOVOLOG per scale ACHS or Q6hrs while NPO - additional check at 0200 * Goal Range: Low 110 mg/dL - High 140 mg/dL * Correction Factor: 15 mg/dL/unit (Loosen 30 mg/dL/unit at lunch) * Loosen Nutritional / Prandial insulin per carb ratio of 1 unit per 5 grams CHO consumed (per 30 grams CHO consumed at lunch) * Please note that the plan above was derived based on current level of insulin resistance and hospital stress. These recommendations are appropriate for inpatient admission only. Plan of care upon discharge will need to be reassessed to avoid potential outpatient hypo/hyperglycemia. Thank you.
[2017-03-15] MEDS ORDERED: DXY100 PO (11:09)
[2017-03-15] MEDS ORDERED: CLIN300C2 PO (11:09)
[2017-03-15 11:20] VITALS: Ht 157.5 cm; Wt 123.1 kg
--- NOTE | 2017-03-15 11:32 | Discharge Instructions ---
Discharge Instructions Date of Service March 15, 2017. Admission Reason for Admission: Failure Of Outpatient Treatment, Cellulitis Lt Leg Discharge Discharge Diagnosis / Problem: Cellulitis left leg, hematoma, acute kidney injury (resolved), DM type II Discharge Goals Goal(s): Improve function, Specific goals (recommend follow up with endocrinology) Activity Recommendations Activity Limitations: resume your previous activity Lifting Limitations: none Exercise/Sports Limitations: as tolerated May Resume Sexual Activity: when tolerated Shower/Bathe: no limitations Driving or Machine Use: no limitations . Instructions / Follow-Up Instructions / Follow-Up Medications: - CLINDAMYCIN: three times a day for 10 days - DOXYCYCLINE: two times a day for 10 days - ULTRAM: as needed for pain stop taking Keflex and Bactrim as previously prescribed - Left leg cellulitis: leg still warm and red but less tender, should continue to improve over next week to 10 days US showed a hematoma that occurred due to trauma, will take weeks to resorb - Acute kidney injury: due to Bactrim use in addition to Bumex, losartan and spironolactone completely resolved, Cr back down to 1.0 which is your baseline continue to take prior medications for chronic heart failure - DM type II: sugars poorly controlled, very labile with high sugars and then hypoglycemia as you mentioned you are typically chasing sugars at home which is NOT ideal would like you to see endocrinology as outpatient we tried to fine tune sugars here in hospital with pharmacy consult but diet is different here in hospital compared to home in order to benefit from endocrine consult, you should record sugars at home 4-5 times a day and also record what you eat and how much FOLLOW UP - Dr. Fraga in one week, call his office for appointment - endocrinology, my nurse navigator will work on arranging an appointment Current Hospital Diet Patient's current hospital diet: AHA Diet (Heart Healthy), Diabetes Type 2 Diet Discharge Diet Recommended Diet: AHA Diet (Heart Healthy), Diabetes Type 2 Diet Procedures Procedures Performed: none Pending Studies Studies pending at discharge: no Laboratory Results Hemoglobin A1c Test 02/27/17 08:12 Range/Units Estimated Average Glucose 189 mg/dl Hemoglobin A1c 8.2 H 4.5-5.6 % Medical Emergencies . Who to Call and When: Medical Emergencies: If at any time you feel your situation is an emergency, please call 911 immediately. . Non-Emergent Contact Non-Emergency issues call your: Primary Care Provider Call Non-Emergent contact if: you have a fever, your pain is worsening, you have any medication questions . . "Provider Documentation" section prepared by John Garcia. . VTE Core Measure Inpt VTE Proph given/why not?: SCD's, Contraindicated [place] Drug Monitoring Program Search Results: no issues identified
[2017-03-15] MEDS ORDERED: TRAM-10 PO (11:34)
--- NOTE | 2017-03-15 14:37 | DIAGNOSTIC IMAGING REPORT ---
LEFT CALF ULTRASONOGRAPHY CLINICAL HISTORY: Pain, swelling, cellulitis COMPARISON STUDY: 03/11/2017 FINDINGS: There is moderately extensive subcutaneous edema. There is a complex posterior fluid collection measuring 81 x 12 x 53 mm. This remain similar in size to the preceding study. This may represent a hematoma. An infected collection cannot be excluded. If this is a clinical concern, aspiration could also be obtained in follow-up IMPRESSION: Nonvascular 81 x 12 x 53 mm complex fluid collection within the posterior calf, similar in size to the preceding study. As previously stated, this may represent a hematoma. Clinical correlation and follow-up is recommended. Electronically signed by: Isreal Toth M.D. 03/15/2017 2:35 PM Dictated Date/Time: 03/15/2017 2:33 PM
--- NOTE | 2017-03-15 15:15 | Discharge Summary ---
Discharge Summary Date of Service March 15, 2017. Discharge Summary Admission Date: March 11, 2017 at 23:43 Discharge Date: March 15, 2017 Discharge Disposition: Home Principal Diagnosis: Left leg cellulitis Problems/Secondary Diagnoses: TONA, resolved DM type II, poorly controlled Chronic systolic heart failure Immunizations: Have You Had Influenza Vaccine: Unknown History of Tetanus Vaccine?: No History of Pneumococcal: Unknown History of Hepatitis B Vaccine: No Procedures: none Consultations: none Medication Reconciliation New Medications: Clindamycin Hcl (Cleocin) 300 Mg Cap 1 CAP PO TID for 10 Days, #30 CAP Doxycycline Hyclate (Doxycycline Hyclate) 100 Mg Cap 100 MG PO BID for 10 Days, #20 CAP 0 Refills Tramadol (Ultram) 50 Mg Tab 50 MG PO Q8H PRN for Pain, #20 TAB Continued Medications: Acetaminophen (Tylenol) 500 Mg Tab 500 MG PO BID PRN for prn, TAB Ascorbic Acid (Vitamin C) 500 Mg Tab 1000 MG PO DAILY Aspirin (Aspirin) 325 Mg Tab 1 TAB PO DAILY Bumetanide (Bumex) 2 Mg Tab 1 TAB PO DAILY for 30 Days, #60 TAB 5 Refills Calcium Carbonate-Vitamin D (Calcium-Carb 600 + D) 1 Tab Tab 1 TAB PO DAILY Carvedilol (Coreg) 12.5 Mg Tab 12.5 MG PO BID, TAB Cholecalciferol (Vitamin D3) 1,000 Unit Tab 1 TAB PO DAILY Hydrocodone/Acetaminophen 5MG/325MG (C[place]on 5MG/325MG) Tab 1 TABLET PO BID PRN for Pain, TAB PRN PAIN Insulin Human NPH (Novolin N) 100 Units/Ml Susp 50 UNITS SQ BIDM Insulin Regular (Human) (Novolin R Relion) 100 Unit/Ml Inj 30 UNITS SC BID Losartan Potassium (Cozaar) 50 Mg Tab 50 MG PO DAILY, TAB Metformin Hcl (Glucophage) 500 Mg Tab 500 MG PO BIDM, TAB Multiple Vitamin (Multivitamin) 1 Tab Tab 1 TAB PO DAILY, TAB Pantoprazole (Protonix) 40 Mg Tab 40 MG PO BID, #30 TAB Primidone (Mysoline) 50 Mg Tab 25 MG PO QPM, TAB Simvastatin (Zocor) 40 Mg Tab 40 MG PO DAILY, TAB Spironolactone (Aldactone) 25 Mg Tab 25 MG PO DAILY, TAB Discontinued Medications: Cephalexin Monohydrate (Keflex) 500 Mg Cap 500 MG PO QID for 7 Days, #28 CAP Sulfa/Trimethoprim (Bactrim Ds 800MG/160MG) Tab 1 TAB PO BID for 7 Days, #14 TAB Discharge Exam Patient feels that left leg is much improved today. Less redness, less tenderness, less warmth. The redness has receded from the original border. We repeat the US of the lower leg, the fluid collection is the same size, again suggestive of hematoma. Discussed going home on 10 more days of antibiotics and to follow up with endocrinology since sugars so difficult to control. All questions answered. Review of Systems: Constitutional: No chills, No fatigue, No fever, No problem reported, No sweats, No weakness, No weight loss Eyes: No diplopia, No discharge, No eye pain, No problem reported, No redness, No worsening of vision ENT: No dental problems, No hearing loss, No nasal symptoms, No problem reported, No sore throat, No tinnitus, No trouble swallowing, No unusual epistaxis Respiratory: No cough, No dyspnea at rest, No dyspnea on exertion, No hemoptysis, No problem reported, No shortness of breath, No sputum, No wheezing Cardiovascular: No PND, No chest pain, No claudication, No edema, No orthopnea, No palpitations, No problem reported Abdomen: No GI bleeding, No constipation, No diarrhea, No nausea, No pain, No problem reported, No vomiting Musculoskeletal: No calf pain, No joint pain, No muscle pain, No problem reported, No swelling Genitourinary - Male: No dysuria, No hematuria, No urinary frequency, No urinary urgency Neurologic: No balance problems, No memory loss, No numbness/tingling, No paralysis, No problem reported, No vertigo, No weakness Psychiatric: No anhedonism, No anxiety, No depression symptoms, No insomnia , No problem reported, No substance abuse Endocrine: No excessive thirst, No excessive urination, No fatigue, No problem reported Hematologic / Lymphatic: No abnormal bleeding/bruising, No clotting problems , No night sweats, No problem reported, No swollen lymph nodes Integumentary: + rash (left lower extremity, receded from borders, tenderness is less) Physical Exam: General Appearance: no apparent distress, + obese Eyes: normal inspection, EOMI, sclerae normal ENT: normal ENT inspection, hearing grossly normal, pharynx normal Neck: supple, no adenopathy, no JVD, trachea midline Respiratory/Chest: chest non-tender, lungs clear, normal breath sounds, no respiratory distress, no accessory muscle use Cardiovascular: regular rate, rhythm, no edema, no gallop, no JVD, no murmur , normal peripheral pulses Abdomen / GI: normal bowel sounds, non tender, soft, no organomegaly Extremities: normal inspection, no calf tenderness, normal capillary refill , no pedal edema, normal range of motion, pelvis stable Neurologic/Psychiatric: it consultant II-XII nml as tested, no motor/sensory deficits , alert, normal mood/affect, normal reflexes, oriented x 3 Skin: + rash (left lower leg erythema receding from original border, less tenderness to palpation, less warmth although still warm compared to opposite leg, no drainage) Hospital Course 61 yo male with cellulitis of left lower extremity after striking leg 8 days prior to admission, also with hematoma on US Left lower extremity cellulitis with failure of outpatient treatment-- failed Bactrim and Keflex treated with Vancomycin and Zosyn, added Clindamycin 03/14 as there is no improvement in redness, warmth or tenderness in past 36 hours Clindamycin showed marked improvement afebrile, WBC normal with normal differential throughout admission repeat US shows that fluid in left leg unchanged in sized, suggestive of hematoma plan to d/c home on Clindamycin and Doxycycline x 10 more days follow up with Dr. Fraga next week TONA: evident on admission, Cr up to 1.7 from 0.97 baseline, resolved quickly, Cr 1.0 most recently likely cause was the Bactrim, infection and concurrent use of diuretics, ARB , aldactone held above medications initially will resume ARB, Aldactone and Bumex on d/c Diabetes mellitus-- sugars very labile which from what he describes is the same at home he describes his sugar control as "always chasing" high sugars he admits that he is eating a lot less here in the hospital hypoglycemic again yesterday pharmacy now managing will resume prior regimen and will resume Metformin discussed that he would benefit from referral to endocrinology as outpatient asked nurse navigator to arrange follow up CAD/history of OH/ICM/CHF/hypertension--continue aspirin daily, carvedilol 12.5 mg by mouth twice a day held Bumex, Losartan, Aldactone due to Cr resume Losartan and Aldactone and Bumex on discharge chronic systolic heart failure: euvolemic, resume prior medications on discharge Hypercholesterolemia--continue simvastatin 40 mg by mouth daily. GERD--continue pantoprazole 40 mg by mouth twice a day. Continue primidone 25 mg by mouth every afternoon. Total Time Spent: Greater than 30 minutes This includes examination of the patient, discharge planning, medication reconciliation, and communication with other providers. Discharge Instructions Please refer to the electronic Patient Visit Report (Discharge Instructions) for additional information. Follow-Up Dr. Fraga in one week Endocrinology in several weeks Additional Copies To Ravindra Fraga M.D.
[2017-03-15 15:33] VITALS: BP 138/80; PULSE 71; TEMP 37.2; O2SAT 98
[2017-03-15 15:35] VITALS: BP 138/80; PULSE 71; TEMP 37.2; O2SAT 98
[2017-03-16] MEDS ORDERED: INSULIN ASPART 100 UNITS/ML 3 ML PEN SC ONE (02:00)
[2017-09-26] MEDS ORDERED: BUME2TAB3 PO (09:54)
[2017-09-26] MEDS ORDERED: ASPI325T45 PO (10:04)
[2017-09-26] MEDS ORDERED: PRIM50TA29 PO (11:23)
[2017-09-26] MEDS ORDERED: PANT1TAB48 PO (12:35)
[2017-09-26] MEDS ORDERED: CARV12.52 PO (12:53)
[2017-09-26] MEDS ORDERED: ACET-1256 PO (13:29)
[2017-09-26] MEDS ORDERED: LOSA50TA54 PO (13:29)
[2017-09-26] MEDS ORDERED: INSU1.2I SQ (15:11)
[2017-09-26] MEDS ORDERED: NVLGI/PEN SQ (15:11)
[2017-09-26] MEDS ORDERED: SPIR25TA89 PO (20:26)
[2017-09-26] MEDS ORDERED: SIMV40TA4 PO (20:26)
[2017-09-26] MEDS ORDERED: MULTTAB58 PO (20:26)
[2017-09-26] MEDS ORDERED: GLC/500 PO (20:26)
== END 2017-03-15 16:01 | disposition home or self-care (01) | DRG 603 ==
LOC: ENRESERVDT → ENRESERVTM → C.EDB 20:20 → C.MS4W 23:43
PROVIDERS: ADMIT Hospitalist; ATTEND Hospitalist
DX: L03.116 Cellulitis of left lower limb (principal); I50.22 Chronic systolic (congestive) heart failure; N17.9 Acute kidney failure, unspecified; S80.02XA Contusion of left knee, initial encounter; E11.9 Type 2 diabetes mellitus without complications; E78.5 Hyperlipidemia, unspecified; I25.5 Ischemic cardiomyopathy; I25.2 Old myocardial infarction; Z79.4 Long term (current) use of insulin; I25.10 Atherosclerotic heart disease of native coronary artery without angina pectoris; K21.9 Gastro-esophageal reflux disease without esophagitis; T36.8X5A Adverse effect of other systemic antibiotics, initial encounter; K59.00 Constipation, unspecified; Y92.009 Unspecified place in unspecified non-institutional (private) residence as the place of occurrence of the external cause; W08.XXXA Fall from other furniture, initial encounter; W07.XXXA Fall from chair, initial encounter; E78.00 Pure hypercholesterolemia, unspecified; Z80.9 Family history of malignant neoplasm, unspecified; Z82.49 Family history of ischemic heart disease and other diseases of the circulatory system; Z87.891 Personal history of nicotine dependence; Z79.82 Long term (current) use of aspirin; Z79.899 Other long term (current) drug therapy

== ENCOUNTER → 2017-04-29 | Outpatient (CLI) | payer OTHER ==
[~2017-04-29] MED LIST changes: +ACET-1256 PO; +ASPI325T45 PO; +BUME2TAB3 PO; +CARV12.52 PO; -CEPH500C PO; +DXY100 PO; +GLC/500 PO; -INSU70IN2 SC; +LOSA50TA54 PO; +MULTTAB58 PO; +NVLNI SQ; +PANT1TAB48 PO; +PRIM50TA29 PO; +SIMV40TA4 PO; +SPIR25TA89 PO; -SULF800T23 PO; +TRAM-10 PO
== END | disposition home or self-care (01) ==
LOC: C.LABSPEC 08:31
PROVIDERS: ATTEND Internal Medicine Endocrinology, Diabetes & Metabolism
DX: E27.9 Disorder of adrenal gland, unspecified (principal)

== ENCOUNTER → 2017-05-08 | Outpatient (CLI) | payer OTHER ==
[2017-05-08 16:55] LABS: BASO % 0.1 %; BASO ABS # 0.01 K/uL (0-0.2); COMPLETE YES; EOS % 1.2 %; HEMATOCRIT 43.5 % (42-52); IG% 0.3 %; LYMPH % 20.6 %; LYMPH ABS # 2.07 K/uL (1.2-3.4); MEAN CELL VOLUME 93.3 fL (80-100); MEAN CORPUSCULAR HEMOGLOBIN 29.6 pg (25-34); MEAN CORPUSCULAR HGB CONC 31.7 g/dl (32-36); MEAN PLATELET VOLUME 9.5 fL (7.4-10.4); MONO % 7.4 %; NEUT % 70.4 %; PLATELET COUNT 271 K/uL (130-400); RED BLOOD COUNT 4.66 M/uL (4.7-6.1); WHITE BLOOD COUNT 10.04 K/uL (4.8-10.8)
[2017-05-08 17:01] LABS: URINE APPEARANCE CLOUDY (CLEAR); URINE BILIRUBIN NEG (NEG); URINE COLOR DK YELLOW; URINE EPITHELIAL CELL AUTO >30 /lpf (0-5); URINE NITRITE NEG (NEG); URINE PH 5.5 (4.5-7.5); URINE SPECIFIC GRAVITY 1.035 (1.000-1.030); UROBILINOGEN NEG (NEG)
[2017-05-08 17:02] LABS: MANUAL MICROSCOPIC REQUIRED? NO; REVIEW REQ? YES
[2017-05-08 17:04] LABS: BLOOD UREA NITROGEN 18 mg/dl (7-18); BUN/CREATININE RATIO 18.8 (10-20); CALCIUM 9.2 mg/dl (8.5-10.1); CARBON DIOXIDE 29 mmol/L (21-32); CHLORIDE 101 mmol/L (98-107); CREATININE 0.96 mg/dl (0.60-1.40); GLUCOSE 284 mg/dl (70-99); POTASSIUM 4.3 mmol/L (3.5-5.1); SODIUM 138 mmol/L (136-145)
[2017-05-08 17:24] LABS: URINE MUCUS PRESENT (NONE PRSENT)
--- NOTE | 2017-05-14 13:01 | CODING QUERY MEDICAL NECESSITY ---
SUPPORTING DIAGNOSIS NEEDED A supporting diagnosis is required for the test/procedure performed on this patient in order for us to be reimbursed by the patient's insurance. Please provide a supporting diagnosis for the following test/procedure listed below next to the test name along with your signature. *If there is no additional diagnosis for this patient that would support the following test/procedure please document that below next to the test/procedure. Test(s)/Procedure(s) that require a supporting diagnosis: * PSA DIAGNOSIS: Provider Signature: Date: Thank you Nasreen Hansen H2020 Information Management Once completed, please kindly fax back to [phone] For questions please call [phone]
== END | disposition home or self-care (01) ==
LOC: C.LABBC 12:45
PROVIDERS: ATTEND Physician Assistant
DX: R39.9 Unspecified symptoms and signs involving the genitourinary system (principal); Z12.5 Encounter for screening for malignant neoplasm of prostate

== ENCOUNTER → 2017-06-24 | Outpatient (CLI) | payer OTHER ==
--- NOTE | 2017-06-24 09:54 | DIAGNOSTIC IMAGING REPORT ---
(CHEST) THORAX WITHOUT CT DOSE: 1079.66 mGy.cm HISTORY: Follow-up multiple pulmonary nodules. TECHNIQUE: Multiaxial CT images of the chest were performed without contrast. A dose lowering technique was utilized adhering to the principles of ALARA. COMPARISON: Chest CT 12/13/2016. FINDINGS: The central airways are patent. No pleural effusions. No pneumothorax. Stable 6 mm subpleural nodule within the lingula on image 149. No additional pulmonary nodules identified. Linear densities within the lingula have improved and favor resolving atelectasis. No new focal lung consolidations. Left-sided pacemaker/defibrillator is again noted. The heart remains borderline enlarged. The visualized liver and spleen are unremarkable. Stable bilateral adrenal gland nodules with the largest on the right measuring 3.7 cm. The left adrenal gland nodule measures 1.4 cm. These demonstrate macroscopic fat and are consistent with benign myelolipomas. No mediastinal or hilar lymphadenopathy. Normal caliber thoracic aorta. No suspicious lytic or blastic osseous lesions. IMPRESSION: 1. No significant change compared to the prior study. 2. Stable 6 mm lingular subpleural nodule. Please refer to the chart below for continued follow-up. Please refer to below summary of Fleischner criteria recommendations for follow-up of incidental CT nodules (Susan To, Guidelines for management of small pulmonary nodules detected on CT scans: A statement from the Fleischner Society, Radiology 237: [phone].) SOLID NODULES Solitary nodule size: <6 mm * Low risk patients: no follow-up needed * high risk patients: optional CT at 12 months Solitary nodule size: 6-8 mm * Low risk patients: follow-up at 6-12 months, then consider further follow-up at 18-24 months * high risk patients: initial follow-up CT at 6-12 months and then at 18-24 months if no change Solitary nodule size: >8 mm * either low or high risk patients - consider follow-up CT at 3 months, and/or CT-PET, and/or biopsy Multiple nodules size: <6 mm * Low risk patients: no routine follow-up * high risk patients: optional CT at 12 months Multiple nodules size: 6-8 mm * Low risk patients: follow-up at 3-6 months, then consider further follow-up at 18-24 months * high risk patients: follow-up at 3-6 months, then at 18-24 months if no change Multiple nodules size: >8 mm * Low risk patients: follow-up at 3-6 months, then consider further follow-up at 18-24 months * high risk patients: follow-up at 3-6 months, then at 18-24 months if no change Note: newly detected indeterminate nodule in persons 35 years of age or older. * Low risk patients: minimal or absent history of smoking and/or other known risk factors * high risk patients: history of smoking or of other known risk factors (e.g. first degree relative with lung cancer, or exposure to asbestos, radon, uranium) * if a nodule up to 8 mm is partly solid or is ground glass further follow-up is required after 24 months to exclude possible slow growing adenocarcinoma (JUANITA) SUBSOLID NODULES Solitary pure ground-glass nodule * nodule size <6 mm - no CT follow-up required * nodule size >=6 mm - follow-up CT at 6-12 months, then every 2 years until 5 years Solitary part-solid nodule * nodule size <6 mm - no CT follow-up required * nodule size >=6 mm - follow-up CT at 3-6 months. If unchanged, and solid component remains <6 mm, then annual follow-up for 5 years Multiple subsolid nodules * nodule size <6 mm - follow-up CT at 3-6 months, consider further follow-up at 2 and 4 years if stable * nodule size >=6 mm - follow-up CT at 3-6 months, subsequent management based on the most suspicious nodule(s) Electronically signed by: Ruben Godinez M.D. 06/24/2017 9:52 AM Dictated Date/Time: 06/24/2017 9:44 AM
== END | disposition home or self-care (01) ==
LOC: C.CTS 09:32
PROVIDERS: ATTEND Internal Medicine Geriatric Medicine
DX: R91.8 Other nonspecific abnormal finding of lung field (principal)

== ENCOUNTER → 2017-06-25 | Outpatient (CLI) | payer OTHER ==
[2017-06-25 10:43] LABS: ESTIMATED AVERAGE GLUCOSE 154 mg/dl; HA1C FLAG Normal (Normal)
== END | disposition home or self-care (01) ==
LOC: C.LAB1850 09:15
PROVIDERS: ATTEND Internal Medicine Endocrinology, Diabetes & Metabolism
DX: E11.9 Type 2 diabetes mellitus without complications (principal)

== ENCOUNTER → 2017-10-31 | Outpatient (CLI) | payer OTHER ==
[~2017-10-31] MED LIST changes: +ASCO10003 PO; -ASCO500T3 PO; +ASPECOTC PO; -ASPI325T45 PO; -CALC600T68 PO; -CHOL1000 PO; +DOXY-300 PO; -DXY100 PO; -HYDR-5688 PO; +INSU1.2I SQ; -INSU1INJ16 SC; +NVLGI/PEN SQ; -NVLNI SQ; +PANT1TAB3 PO; -PANT1TAB48 PO; +SPIR25TA5 PO; -SPIR25TA89 PO
[2017-10-31 11:27] LABS: BASO % 0.2 %; BASO ABS # 0.02 K/uL (0-0.2); EOS % 2.5 %; HEMATOCRIT 45.7 % (42-52); HEMOGLOBIN 15.7 g/dL (14.0-18.0); IG# 0.02 K/uL (0.00-0.02); LYMPH % 26.1 %; LYMPH ABS # 2.13 K/uL (1.2-3.4); MEAN CELL VOLUME 93.3 fL (80-100); MEAN CORPUSCULAR HGB CONC 34.4 g/dl (32-36); MEAN PLATELET VOLUME 9.8 fL (7.4-10.4); MONO % 8.3 %; MONO ABS # 0.68 K/uL (0.11-0.59); NEUT % 62.7 %; PLATELET COUNT 218 K/uL (130-400); RED CELL DISTRIBUTION WIDTH CV 14.3 % (11.5-14.5); RED CELL DISTRIBUTION WIDTH SD 48.3 fL (36.4-46.3); WHITE BLOOD COUNT 8.15 K/uL (4.8-10.8)
[2017-10-31 11:44] LABS: HEMOGLOBIN A1C 5.7 % (4.5-5.6)
[2017-10-31 13:10] LABS: BLOOD UREA NITROGEN 27 mg/dl (7-18); CALCIUM 8.9 mg/dl (8.5-10.1); CARBON DIOXIDE 31 mmol/L (21-32); CREATININE 0.98 mg/dl (0.60-1.40); GLUCOSE 77 mg/dl (70-99); SODIUM 138 mmol/L (136-145)
[2017-10-31 13:13] LABS: CHOLESTEROL 94 mg/dl (0-200); LDL CHOLESTEROL CALCULATED 30 mg/dl
== END | disposition home or self-care (01) ==
LOC: C.LAB1850 09:11
PROVIDERS: ATTEND Internal Medicine Endocrinology, Diabetes & Metabolism
DX: R80.9 Proteinuria, unspecified (principal); E11.21 Type 2 diabetes mellitus with diabetic nephropathy

== ENCOUNTER → 2018-03-18 | Outpatient (CLI) | payer OTHER ==
[~2018-03-18] MED LIST changes: -ASCO10003 PO; -DOXY-300 PO; -SPIR25TA5 PO; +SPIR25TA89 PO; -TRAM-10 PO
[2018-03-18 11:45] LABS: HEMOGLOBIN A1C 5.9 % (4.5-5.6)
== END | disposition home or self-care (01) ==
LOC: C.LAB1850 09:31
PROVIDERS: ATTEND Internal Medicine Endocrinology, Diabetes & Metabolism
DX: R80.9 Proteinuria, unspecified (principal); E11.9 Type 2 diabetes mellitus without complications

== ENCOUNTER → 2018-05-27 | Day surgery (SDC) | payer OTHER ==
[2018-05-21 08:10] VITALS: BMI 45.0
[~2018-05-27] VITALS: Ht 157.5 cm; Wt 111.4 kg
[~2018-05-27] MED LIST changes: +ASCO10003 PO; +LIDOCAINE HCL 2% 2 ML VIAL (20MG/ML) ONE; +MIDAZOLAM HCL 1 MG/ML 2ML VIAL ONE; -PANT1TAB3 PO; +PROPOFOL IV EMULSION 10 MG/ML 20 ML VIAL ONE; +SODIUM CHLORIDE 0.9% 500ML 500 ML IV ONE; +SPIR25TA5 PO; -SPIR25TA89 PO; +TRAM-10 PO
[2018-05-27 09:04] VITALS: Ht 157.5 cm; Wt 111.4 kg
--- NOTE | 2018-05-27 09:25 | Endo History and Physical ---
History & Physical Date of Service: May 27, 2018. Chief Complaint: HX COLON POLYPS 2013 Referring Physician: Dr. Ravindra Fraga History of Present Illness pt with hx of colon polyps. Past Medical History Diabetes, High Cholesterol, CHF, Hypertension, COPD, Kidney Disease Past Surgical History Hx Cardiac Surgery: Yes (CARDIAC CATH NO STENT,ABLATION,PACEMAKER, PACEMAKER/ DEFIBRILLATOR) Hx Internal Defibrillator: Yes (ICD (07/23/13)) Hx Pacemaker: No Hx Abdominal Surgery: No Hx of Implantable Prosthesis: No Hx Post-Op Nausea and Vomiting: No Hx Cancer Surgery: No Hx Thoracic Surgery: No Hx Orthopedic: No Hx Urinary Tract Surgery: No Family History Colon CA Social History Smoking Status: Former Smoker Hx Substance Use: No Hx Alcohol Use: Yes (OCC SOCIAL) Allergies Coded Allergies: Lisinopril (Unverified Allergy, Unknown, cough, 05/27/18) Current Medications Reported Home Medications Medications Dose Route/Sig Max Daily Dose Days Date Category Dose Instructions Vitamin C (Ascorbic Acid) 1,000 Mg Tab 1,000 Mg PO QAM 05/21/18 Reported Ultram (Tramadol HCl) 50 Mg Tab 50 Mg PO Q4H PRN 05/21/18 Reported Toujeo Solostar (Insulin Glargine) 300 Unit/Ml Inj 42-45 Units SQ QAM 09/26/17 Reported Novolog Flexpen (Insulin Aspart) 100 Units/Ml Inj 1 Dose SQ UD 09/26/17 Reported COVERAGE DIRECTED BY SLIDING SCALE Coreg (Carvedilol) 12.5 Mg Tab 12.5 Mg PO BID 03/09/17 Reported Aspirin 325 Mg Tab 325 Mg PO QAM 12/13/16 Reported PT WILL CHECK WITH PCP FOR INSTRUCTIONS Bumex (Bumetanide) 2 Mg Tab 2 Mg PO QAM 08/15/15 Reported Tylenol (Acetaminophen) 500 Mg Tab 1,000 Mg PO PRN PRN 04/12/15 Reported TAKE PER PACKAGE DIRECTIONS Cozaar (Losartan Potassium) 50 Mg Tab 50 Mg PO HS 04/12/15 Reported Mysoline (Primidone) 50 Mg Tab 25 Mg PO QPM 12/04/13 Reported Aldactone (Spironolactone) 25 Mg Tab 25 Mg PO QAM 02/18/13 Reported Multivitamin (Multiple Vitamin) 1 Tab Tab 1 Tab PO QAM 02/18/13 Reported Zocor (Simvastatin) 40 Mg Tab 40 Mg PO QAM 02/18/13 Reported Glucophage (Metformin Hcl) 500 Mg Tab 500 Mg PO BIDM 02/18/13 Reported Vital Signs Weight (Kilograms): 111.36 Height (Feet): 5 Height (Inches): 2 Date Time Temp Pulse Resp B/P (MAP) Pulse Ox O2 Delivery O2 Flow Rate FiO2 05/27/18 09:11 37.1 71 20 130/80 (97) 97 Room Air Physical Exam General Appearance: no apparent distress Respiratory/Chest: Auscultation: breath sounds normal Cardiovascular: Heart Auscultation: RRR Abdomen: Inspection & Palpation: soft Liver: non-tender Assessment and Plan stable for colonoscopy
--- NOTE | 2018-05-27 10:09 | Discharge Instructions ---
Endoscopy Patient Instructions Date / Procedure(s) Performed May 27, 2018. Colonoscopy Allergy Information Coded Allergies: Lisinopril (Unverified Allergy, Unknown, cough, 05/27/18) Discharge Date / Findings May 27, 2018. small polyp removed Medication Instructions Stopped Medication(s): ASA Provider Instructions Activity Restrictions - No exercising or heavy lifting for 24 hours. - Do not drink alcohol the day of the procedure. - Do not drive a car or operate machinery until the day after the procedure. - Do not make any important decisions or sign important papers in 24 hours after the procedure. Following Day: - Return to full activity which may include returning to work/school. Diet Start your diet with liquids and light foods (jello, soup, juice, toast). Then eat your usual diet if not nauseated. Treatment For Common After Affects For mild abdominal pain, bloating, or excessive gas: - Rest - Eat lightly - Lie on right side Follow-Up Information Follow-up with Dr. Ravindra Fraga as scheduled Anesthesia Information What You Should Know You have had a procedure that required some medicine to reduce anxiety and discomfort. This treatment is called moderate sedation. After receiving the treatment, you may be sleepy, but you will be able to breathe on your own. The effects of the treatment may last for several hours. Follow these instructions along with Activity/Diet recommendations noted above: * Do NOT do anything where dizziness or clumsiness would be dangerous. * Rest quietly at home today, then you can be up and about tomorrow. * Have a responsible person stay with you the rest of today. * You may have had an I.V. today. If so, you may take the dressing off later today. Recommendations Call your doctor if: * Trouble breathing * Continuous vomiting for more than 24 hours * Temperature above 101 degrees * Severe abdominal pain or bloating * Pain not relieved by pain medicine ordered * There is increased drainage or redness from any incision * A large amount of rectal bleeding greater than 2-3 tablespoons. (If you had a polyp/s removed or have hemorrhoids, a small amount of blood - from the rectum is to be expected.) * You have any unanswered questions or concerns. IN THE EVENT OF A SERIOUS EMERGENCY, GO TO THE NEAREST EMERGENCY ROOM Your discharge instructions were prepared by provider Ernesto Villatoro. Patient Instructions Signature Page Reed Reid Patient (or Guardian) Signature/Date: I have read and understand the instructions given to me by my caregivers. Caregiver/RN/Doctor Signature/Date: The above-named patient and/or guardian has received patient instructions on this date. + Original Patient Signature Page (only) stays with chart. Please make copy for patient.
[2018-05-27 10:28] VITALS: BP 118/82; PULSE 76; O2SAT 98
--- NOTE | 2018-05-27 10:28 | GI REPORT ---
Patient Name: Reed Reid Procedure Date: 05/27/2018 9:38 AM Date of : 1955 Admit Type: Outpatient Age: 62 Gender: Male Attending MD: Ernesto Villatoro MD Procedure: Colonoscopy Providers: Ernesto Villatoro MD Referring MD: Ravindra Fraga Indications: High risk colon cancer surveillance: Personal history of colonic polyps Medicines: See the Anesthesia note for documentation of the administered medications Complications: No immediate complications. Estimated Blood Loss: Estimated blood loss was minimal. Procedure: Pre-Anesthesia Assessment: - Prior to the procedure, a History and Physical was performed, and patient medications, allergies and sensitivities were reviewed. The patient's tolerance of previous anesthesia was reviewed. - The risks and benefits of the procedure and the sedation options and risks were discussed with the patient. All questions were answered and informed consent was obtained. - Patient identification and proposed procedure were verified prior to the procedure by the physician and the nurse. The procedure was verified in the pre-procedure area. - Pre-procedure physical examination revealed no contraindications to sedation. - After reviewing the risks and benefits, the patient was deemed in satisfactory condition to undergo the procedure. After I obtained informed consent, the scope was passed under direct vision. Throughout the procedure, the patient's blood pressure, pulse, and oxygen saturations were monitored continuously. The scope was introduced through the anus and advanced to the cecum, identified by appendiceal orifice and ileocecal valve. The colonoscopy was performed without difficulty. The patient tolerated the procedure well. The quality of the bowel preparation was fair. Findings: The perianal and digital rectal examinations were normal. A 4 mm polyp was found at 40 cm proximal to the anus. The polyp was sessile. The polyp was removed with a cold snare. Resection and retrieval were complete. Verification of patient identification for the specimen was done by the physician and nurse using the patient's name and medical record number. Estimated blood loss was minimal. A few small-mouthed diverticula were found in the sigmoid colon. The exam was otherwise without abnormality on direct and retroflexion views. Impression: - Preparation of the colon was fair. - One 4 mm polyp at 40 cm proximal to the anus, removed with a cold snare. Resected and retrieved. - Diverticulosis in the sigmoid colon. - The examination was otherwise normal on direct and retroflexion views. Recommendation: - Await pathology results. - Discharge patient to home. Ernesto Villatoro M.D. Ernesto Villatoro MD 05/27/2018 10:27:37 AM This report has been signed electronically. Note Initiated On: 05/27/2018 9:38 AM Number of Addenda: 0 I attest to the content of the Intraoperative Record and orders documented therein, exceptions below {[id number]}
--- NOTE | 2018-05-27 10:40 | Anesthesiology Progress Note ---
Anesthesia Post Op Note Date & Time May 27, 2018 at 10:39 Vital Signs Pain Intensity: 0 Vital Signs Past 12 Hours Date Time Temp Pulse Resp B/P (MAP) Pulse Ox O2 Delivery O2 Flow Rate FiO2 05/27/18 10:28 76 20 118/82 (94) 98 Room Air 05/27/18 10:13 74 20 110/75 (87) 98 Room Air 05/27/18 09:11 37.1 71 20 130/80 (97) 97 Room Air Notes Mental Status: alert / awake / arousable, participated in evaluation Pt Amnestic to Procedure: Yes Nausea / Vomiting: adequately controlled Pain: adequately controlled Airway Patency, RR, SpO2: stable & adequate BP & HR: stable & adequate Hydration State: stable & adequate Anesthetic Complications: no major complications apparent
== END | disposition home or self-care (01) ==
LOC: C.GI 08:38
PROVIDERS: ATTEND Internal Medicine Gastroenterology
DX: Z12.11 Encounter for screening for malignant neoplasm of colon (principal); Z86.010 Personal history of colon polyps; D12.6 Benign neoplasm of colon, unspecified; K57.30 Diverticulosis of large intestine without perforation or abscess without bleeding; I11.0 Hypertensive heart disease with heart failure; I25.10 Atherosclerotic heart disease of native coronary artery without angina pectoris; E11.9 Type 2 diabetes mellitus without complications; E78.00 Pure hypercholesterolemia, unspecified; I50.9 Heart failure, unspecified; J44.9 Chronic obstructive pulmonary disease, unspecified; E66.9 Obesity, unspecified; Z68.42 Body mass index [BMI] 45.0-49.9, adult; Z87.891 Personal history of nicotine dependence; Z79.82 Long term (current) use of aspirin; Z79.899 Other long term (current) drug therapy; Z79.4 Long term (current) use of insulin; Z79.84 Long term (current) use of oral hypoglycemic drugs; Z80.0 Family history of malignant neoplasm of digestive organs

== ENCOUNTER 2018-06-07 13:10 | Emergency (ER) | payer OTHER ==
[~2018-06-07] VITALS: Ht 157.5 cm; Wt 113.6 kg
[~2018-06-07 13:10] MED LIST changes: -LIDOCAINE HCL 2% 2 ML VIAL (20MG/ML) ONE; -MIDAZOLAM HCL 1 MG/ML 2ML VIAL ONE; -PROPOFOL IV EMULSION 10 MG/ML 20 ML VIAL ONE; -SODIUM CHLORIDE 0.9% 500ML 500 ML IV ONE
[2018-06-07 13:20] VITALS: TEMP 36.7; Ht 157.5 cm; Wt 113.6 kg
[2018-06-07] MEDS ORDERED: PRIM50TA29 PO (14:17)
--- NOTE | 2018-06-07 15:37 | DIAGNOSTIC IMAGING REPORT ---
ULTRASOUND LEFT LOWER EXTREMITY VENOUS CLINICAL HISTORY: Left lower extremity erythema. COMPARISON STUDY: Left lower extremity venous ultrasound dated 03/11/2017 TECHNIQUE: Real-time, grayscale, and color Doppler sonography of the deep veins of the left lower extremity was performed from the inguinal crease to the calf. Compression and augmentation were utilized. FINDINGS: There is no sonographic evidence of deep venous thrombosis identified in the left lower extremity. The common femoral, superficial femoral, and popliteal veins are patent and normally compressible. The greater saphenous vein and the profunda femoris vein at the junction with the common femoral vein are clear. The visualized calf veins are patent. IMPRESSION: There is no sonographic evidence of deep venous thrombosis identified in the left lower extremity. Electronically signed by: Williams Beavers M.D. 06/07/2018 3:35 PM Dictated Date/Time: 06/07/2018 3:35 PM
[2018-06-07] MEDS ORDERED: DOXY-300 PO ×2 (15:55→16:01)
--- NOTE | 2018-06-07 15:56 | EMERGENCY ROOM VISIT NOTE ---
ED Visit Note First contact with patient: 13:25 The patient was seen and examined with Grayson De Anda PA-C. I agree with the history, physical and findings. Please see the note for disposition and details.
--- NOTE | 2018-06-07 15:57 | EMERGENCY ROOM VISIT NOTE ---
History First contact with patient: 13:25 Chief Complaint: LEG PAIN,LEG INJURY Stated Complaint: LEFT LEG REDNESS AND HOT History of Present Illness The patient is a 62 year old male who presents to the Emergency Room via private vehicle with complaints of "left leg redness and hot". The patient states that he has a history of left lower extremity hematoma and cellulitis. He notes that he has been doing well lately, however around 10:30 AM he noticed some redness to the left posterior calf. He notes that this feels similar to his previous episode of cellulitis and hematoma formation. He denies any trauma , injury, fevers or chills. He notes that he was outside recently and the area could have been exposed to irritants in the yard. He is unsure of his tetanus status, but it is noted that per his medical record is up-to-date. He denies fever. He rates his pain as a 4/10. Review of Systems A complete 6-point Review of Systems was discussed with the patient, with pertinent positives and negatives listed in the History of Present Illness. All remaining Review of Systems questions can be considered negative unless otherwise specified. Past Medical/Surgical History Medical Problems: (1) Congestive heart failure (2) Diabetes (3) Failure of outpatient treatment (4) High cholesterol (5) Hypertension (6) Ischemic cardiomyopathy (7) Left leg cellulitis (8) Myocardial infarction Surgical Problems: (1) H/O cardiac catheterization (2) H/O cardiac radiofrequency ablation Family History FHx: cancer FHx: heart disease Hypertension Social History Smoking Status: Never Smoker Alcohol Use: occasionally Drug Use: none Marital Status: Occupation Status: disabled Current/Historical Medications Scheduled Ascorbic Acid (Vitamin C), 1,000 MG PO QAM Aspirin (Aspirin), 325 MG PO QAM Bumetanide (Bumex), 2 MG PO QAM Carvedilol (Coreg), 12.5 MG PO BID Doxycycline (Monohydrate) (Doxycycline), 100 MG PO BID Insulin Aspart (Novolog Flexpen), 1 DOSE SQ UD Insulin Glargine (Toujeo Solostar), 42-45 UNITS SQ QAM Losartan Potassium (Cozaar), 50 MG PO HS Metformin Hcl (Glucophage), 500 MG PO BIDM Multiple Vitamin (Multivitamin), 1 TAB PO QAM Primidone (Mysoline), 50 MG PO QPM Primidone (Mysoline), 100 MG PO QAM Simvastatin (Zocor), 40 MG PO QAM Spironolactone (Aldactone), 25 MG PO QAM Scheduled PRN Acetaminophen (Tylenol), 1,000 MG PO PRN PRN for Pain Tramadol (Ultram), 50 MG PO Q4H PRN for Pain Physical Exam Vital Signs Date Time Temp Pulse Resp B/P (MAP) Pulse Ox O2 Delivery O2 Flow Rate FiO2 06/07/18 16:23 81 19 132/68 97 06/07/18 13:20 36.7 85 18 127/86 98 Room Air Physical Exam VITAL SIGNS - Vital signs and nursing notes were reviewed. Stable. Afebrile. GENERAL -62-year-old male appearing his stated age who is in no acute distress. Communicates well with provider and answers questions appropriately. SKIN -the posterior left calf exhibits a 13 x 17 cm erythematous nonraised region consistent with cellulitis. HEAD - NC/AT. EXTREMITIES - No clubbing or peripheral cyanosis. No pretibial edema present. Skin changes as above. Minimal tenderness overlying this region. No bony tenderness. He is neurovascularly intact distally. +5/5 strength noted in UE/ LE bilaterally. NEUROLOGIC - Cranial nerves II through XII grossly intact. Sensory intact to light touch throughout. PSYCH - A&O, and cooperates fully with examiner. Pt is very pleasant and interacts well with examiner. Medical Decision & Procedures ER Provider Diagnostic Interpretation: ULTRASOUND LEFT LOWER EXTREMITY VENOUS CLINICAL HISTORY: Left lower extremity erythema. COMPARISON STUDY: Left lower extremity venous ultrasound dated 03/11/2017 TECHNIQUE: Real-time, grayscale, and color Doppler sonography of the deep veins of the left lower extremity was performed from the inguinal crease to the calf. Compression and augmentation were utilized. FINDINGS: There is no sonographic evidence of deep venous thrombosis identified in the left lower extremity. The common femoral, superficial femoral, and popliteal veins are patent and normally compressible. The greater saphenous vein and the profunda femoris vein at the junction with the common femoral vein are clear. The visualized calf veins are patent. IMPRESSION: There is no sonographic evidence of deep venous thrombosis identified in the left lower extremity. Electronically signed by: Williams Beavers M.D. 06/07/2018 3:35 PM Dictated Date/Time: 06/07/2018 3:35 PM Medical Decision Patient was seen and evaluated as above in room D6. Review was performed of nursing notes and vital signs. After obtaining a thorough history and physical examination the above work up was performed. He presents to us today with redness on the posterior left calf. This is likely cellulitis but I did elect to obtain an ultrasound to rule out DVT. He notes the redness was of abrupt onset. This could be a reaction to something he was exposed to outside yesterday, but given his history do believe that treatment for cellulitis should be initiated. He will be started upon doxycycline. He notes that in the past he was given Keflex Bactrim, and experienced kidney injury secondary to this. I will refrain from this and to provide MRSA coverage will add doxycycline. The case was discussed with the attending physician who personally evaluated the patient. We agreed that doxycycline will be started at this time. I outlined the erythematous region with a skin marking pen. Patient at this time does not meet criteria for inpatient management, but was informed that he is to watch this area closely and that if it worsens he is to return. The patient was educated upon management, educated upon todays findings /results, educated upon symptoms in which to return, had questions answered prior to discharge, and was discharged home in good condition. I attest that I have personally reviewed the patient medication list. I attest that I have reviewed the patient's blood pressure and it was found to be elevated likely secondary to situation In the evaluation and treatment of this patient the following differential diagnoses were entertained: Fracture, dislocation, skin reaction, erythema migrans, cellulitis, DVT, among others. Impression Primary Impression: Leg pain, left Additional Impression: Left leg cellulitis Departure Information Dispostion Home / Self-Care Condition GOOD Prescriptions Doxycycline (Monohydrate) (Doxycycline) 100 Mg Cap 100 MG PO BID for 10 Days, #20 TABS . Prov: Graysno De Anda PA-C 06/07/18 Referrals Ravindra Fraga M.D. (PCP) Patient Instructions My [facility] Additional Instructions You were seen in the emergency department for left leg pain, and I suspect this is a skin infection developing. Please elevate your leg and apply ice. Please do not apply ice directly to the skin. Please apply ice for about 15 minutes, 5 times per day. You have been prescribed Doxycycline to be taken as prescribed. This is every 12 hours. This is an antibiotic. All antibiotics have the potential to cause diarrhea. Stop this medication and contact a medical provider if you were to develop any significant adverse side effects including: wheezing, shortness of breath, passing out, vomiting, or a diffuse rash. Always take antibiotics as directed and COMPLETE the ENTIRE course regardless of the improvement of your symptoms. Protect yourself with sunscreen while on this antibiotic as it increases your skin's sensitivity to the light and cause bad sunburns. In addition, you should be sure to take this pill after eating. Make sure the pill is completely swallowed as this medication can cause irritation to the lining of the esophagus. Do NOT drink milk or eat anything with large amounts of Calcium in them 1 hour prior to taking this medication as this will decrease the effectiveness of the medication. Please take this for the full 10 days. Please call your family doctor to schedule follow-up to recheck your wound on Saturday. If this worsens please return here. Please return with any fevers, chills or worsening of your symptoms. Problem Qualifiers
[2018-06-07 16:23] VITALS: BP 132/68; PULSE 81; O2SAT 97
== END 2018-06-07 16:25 | disposition home or self-care (01) ==
LOC: C.EDB 13:12 → C.EDD 16:25
DX: M79.605 Pain in left leg (principal); L03.116 Cellulitis of left lower limb; I50.9 Heart failure, unspecified; E11.9 Type 2 diabetes mellitus without complications; E78.00 Pure hypercholesterolemia, unspecified; I11.0 Hypertensive heart disease with heart failure; I25.5 Ischemic cardiomyopathy; I25.2 Old myocardial infarction; Z79.82 Long term (current) use of aspirin; Z79.4 Long term (current) use of insulin; Z79.899 Other long term (current) drug therapy

== ENCOUNTER 2022-02-05 08:55 | Observation (INO) ==
--- NOTE | 2021-12-22 11:20 | PAT Medication Instructions ---
Medication Instructions Date of Service December 22, 2021 Home Medications Medication Instructions Recorded Droplet Pen Needle 32 gauge x #400 ea NS 08/13/19 5/32" (pen needle, diabetic) BD Ultra-Fine Barbara Pen Needle 32 #400 ea NS 07/22/20 gauge x 5/32" (pen needle, diabetic) Accu-Chek Astrid Plus Meter #1 ea NS 12/16/20 (blood-glucose meter) Accu-Chek Astrid Plus test strp #400 ea NS 12/16/20 (blood sugar diagnostic) BD Alcohol Swabs (alcohol swabs) 4 pad TOPICAL DAILY 90 Days #400 12/16/20 ea NS spironolactone 25 mg tablet 25 mg PO QAM #90 tab 03/15/21 insulin aspart U-100 100 unit/mL 40 unit SQ DAILY 90 Days #45 ml 05/02/21 (3 mL) subcutaneous pen (Novolog Flexpen U-100 Insulin aspart) Accu-Chek Softclix Lancets #400 ea NS 07/04/21 (lancets) carvedilol 12.5 mg tablet 12.5 mg PO BID #180 tab 09/25/21 insulin glargine U-300 conc 300 42 unit SQ QAM #13.5 ml 09/25/21 unit/mL (1.5 mL) subcutaneous pen (Toujeo SoloStar U-300 Insulin) primidone 250 mg tablet 250 mg PO BID #180 tab 10/06/21 gabapentin 600 mg tablet 600 mg PO QID #360 tab 12/11/21 oxycodone 5 mg tablet See Rx Instructions PO BID PRN #30 12/19/21 tab acetaminophen 500 mg tablet 1,000 mg PO BID PRN ascorbic acid (vitamin C) 500 mg tablet 1,000 mg PO QAM aspirin 325 mg tablet 325 mg PO QAM multivitamin (Multiple Vitamins) 1 tab PO QAM Droplet Pen Needle 32 gauge x 5/32" (pen needle, diabetic) cyanocobalamin (vitamin B-12) 500 mcg tablet (Vitamin B-12) 500 mcg PO DAILY BD Ultra-Fine Barbara Pen Needle 32 gauge x 5/32" (pen needle, diabetic) Accu-Chek Astrid Plus Meter (blood-glucose meter) Accu-Chek Astrid Plus test strp (blood sugar diagnostic) BD Alcohol Swabs (alcohol swabs) 4 pad TOPICAL DAILY spironolactone 25 mg tablet 25 mg PO QAM insulin aspart U-100 100 unit/mL (3 mL) subcutaneous pen (Novolog Flexpen U-100 Insulin aspart) 40 unit SQ DAILY Accu-Chek Softclix Lancets (lancets) carvedilol 12.5 mg tablet 12.5 mg PO BID insulin glargine U-300 conc 300 unit/mL (1.5 mL) subcutaneous pen (Toujeo SoloStar U-300 Insulin) 42 unit SQ QAM primidone 250 mg tablet 250 mg PO BID gabapentin 600 mg tablet 600 mg PO QID oxycodone 5 mg tablet See Rx Instructions PO BID PRN atorvastatin 80 mg tablet 80 mg PO QAM bumetanide 1 mg tablet 1 mg PO DAILY PRN cholecalciferol (vitamin D3) 50 mcg (2,000 unit) tablet (Vitamin D3) 50 mcg PO QAM duloxetine 20 mg capsule,delayed release (Cymbalta) 20 mg PO QAM tamsulosin 0.4 mg capsule (Flomax) 0.4 mg PO HS Continue as directed gabapentin 600 mg tablet 600 mg PO QID ASK your prescriber and surgeon aspirin 325 mg tablet 325 mg PO QAM DO NOT take the morning of surgery insulin aspart U-100 100 unit/mL (3 mL) subcutaneous pen (Novolog Flexpen U-100 Insulin aspart) 40 unit SQ DAILY ascorbic acid (vitamin C) 500 mg tablet 1,000 mg PO QAM multivitamin (Multiple Vitamins) 1 tab PO QAM cyanocobalamin (vitamin B-12) 500 mcg tablet (Vitamin B-12) 500 mcg PO DAILY spironolactone 25 mg tablet 25 mg PO QAM bumetanide 1 mg tablet 1 mg PO DAILY PRN cholecalciferol (vitamin D3) 50 mcg (2,000 unit) tablet (Vitamin D3) 50 mcg PO QAM Take morning of surgery With a small sip of water, OTHERWISE NOTHING TO EAT OR DRINK AFTER MIDNIGHT: acetaminophen 500 mg tablet 1,000 mg PO BID PRN(okay to take up to 4 hours prior to surgery if needed) carvedilol 12.5 mg tablet 12.5 mg PO BID primidone 250 mg tablet 250 mg PO BID oxycodone 5 mg tablet See Rx Instructions PO BID PRN(okay to take up to 4 hours prior to surgery if needed) atorvastatin 80 mg tablet 80 mg PO QAM duloxetine 20 mg capsule,delayed release (Cymbalta) 20 mg PO QAM Take evening before surgery acetaminophen 500 mg tablet 1,000 mg PO BID PRN(if needed) carvedilol 12.5 mg tablet 12.5 mg PO BID primidone 250 mg tablet 250 mg PO BID oxycodone 5 mg tablet See Rx Instructions PO BID PRN(if needed) tamsulosin 0.4 mg capsule (Flomax) 0.4 mg PO HS Other Notes If you have any questions please call us at [phone] or [phone] or [phone] or [phone]
--- NOTE | 2021-12-27 12:11 | Anesthesiology Consultation ---
Date of Service December 27, 2021 Assessment & Plan (1) Encounter for pre-operative examination: - check BSG am DOS. - cardio clearance. Case discussed with Dr. Genao who advised pre-op cardiology evaluation, requesting stress testing and echocardiogram by cardiology given noted occlusion of RCA and LAD on 2006 cardiac catheterization and EF 30% on 2010 echo per [place] [facility] records. Form completed with testing request as above. Case will be reviewed with anesthesiologist again after cardiology evaluation/testing if appropriate to proceed at [facility]. - medical clearance. Workload note sent to PCP regarding abnormal CXR. - abnormal CXR: Faint bibasilar airspace opacities are favored to represent atelectasis, although superimposed pneumonia, and/or aspiration cannot be excluded. Cardiomegaly is noted. - Surgeon's office made aware of abnormal pre-op CXR, cardio and medical clearance. Pt aware, states he feels fine and feels it is not consistent with pneumonia-is aware to follow-up with his PCP and land mobile radio technician for pre-op assessments. - neuraxial vs GA: Both discussed in detail with patient, he has concerns with neuraxial anesthesia and subjective experience of block. He declines additional discussion with myself or anesthesiologist, plans to discuss with anesthesiologist am DOS. Per discussion with Dr. Genao, patient may undergo GA given cardiac history vs neuraxial anesthesia. Patient aware. Bolus not ordered at this time. - neurology office visit 07/11/2021 [place]: "...Essential tremor: Refractory to medication. Check primidone level and if able will increase the dosage to 150 mg b.i.d., discussed side effects. Appears to be on maximum dosage of gabapentin, already on a cardiac beta-jairo, history of kidney stones so would avoid Topamax..." - COVID screening: Per assessment on 12/27/2021: Travel screen negative, no known COVID-19 positive contacts or current COVID-19 related symptoms in past 2 weeks. Patient vaccinated. Surgeon arranging preop COVID testing, scheduled 02/01/2022. Awaiting results. Chart Review Chart Review: Pending: Refer to Additional Notes / Consult section and Patient seen in Pre Admission Testing Teaching & Discussion Pre-Anesthesia Teaching/Discussion Notes: Instructed NPO after midnight before surgery, except medications with 15 cc of water. Medication instructions provided according to the PAT guidelines. History Surgery Operation Date: 02/05/22 07:00 Proposed Procedures p Right Lateral Total Hip Arthroplasty - Tylre Wu DO Height/Weight Height: 4 ft 11.5 in Weight: 121.7 kg Allergies Allergy/AdvReac Type Severity Reaction Status Date / Time sulfamethoxazole Allergy Intermediate kidney Verified 12/20/21 07:27 [From Bactrim] issues trimethoprim [From Bactrim] Allergy Intermediate kidney Verified 12/20/21 07:27 issues lisinopril AdvReac Unknown cough Verified 12/20/21 07:27 Medications Home Medications Medication Instructions Recorded Confirmed Last Taken acetaminophen 500 mg tablet 1,000 mg PO BID PRN #60 tab 05/13/19 12/27/21 06/05/20 ascorbic acid (vitamin C) 500 mg 1,000 mg PO QAM tab 05/13/19 12/27/21 06/05/20 tablet aspirin 325 mg tablet 325 mg PO QAM tab 05/13/19 12/27/21 06/03/20 multivitamin (Multiple Vitamins) 1 tab PO QAM 05/13/19 12/27/21 06/05/20 Droplet Pen Needle 32 gauge x #400 ea NS 08/13/19 12/27/21 08/16/19 5/32" (pen needle, diabetic) cyanocobalamin (vitamin B-12) 500 500 mcg PO DAILY 04/28/20 12/27/21 06/05/20 mcg tablet (Vitamin B-12) BD Ultra-Fine Barbara Pen Needle 32 #400 ea NS 07/22/20 12/27/21 Unknown gauge x 5/32" (pen needle, diabetic) Accu-Chek Astrid Plus Meter #1 ea NS 12/16/20 12/27/21 Unknown (blood-glucose meter) Accu-Chek Astrid Plus test strp #400 ea NS 12/16/20 12/27/21 Unknown (blood sugar diagnostic) BD Alcohol Swabs (alcohol swabs) 4 pad TOPICAL DAILY 90 Days #400 12/16/20 12/27/21 Unknown ea NS spironolactone 25 mg tablet 25 mg PO QAM #90 tab 03/15/21 12/27/21 Unknown insulin aspart U-100 100 unit/mL 40 unit SQ DAILY 90 Days #45 ml 05/02/21 12/27/21 Unknown (3 mL) subcutaneous pen (Novolog Flexpen U-100 Insulin aspart) Accu-Chek Softclix Lancets #400 ea NS 07/04/21 12/27/21 Unknown (lancets) carvedilol 12.5 mg tablet 12.5 mg PO BID #180 tab 09/25/21 12/27/21 Unknown insulin glargine U-300 conc 300 42 unit SQ QAM #13.5 ml 09/25/21 12/27/21 Unknown unit/mL (1.5 mL) subcutaneous pen (Toujeo SoloStar U-300 Insulin) primidone 250 mg tablet 250 mg PO BID #180 tab 10/06/21 12/27/21 Unknown gabapentin 600 mg tablet 600 mg PO QID #360 tab 12/11/21 12/27/21 Unknown oxycodone 5 mg tablet See Rx Instructions PO BID PRN #30 12/19/21 12/27/21 Unknown tab atorvastatin 80 mg tablet 80 mg PO QAM 12/20/21 12/27/21 Unknown bumetanide 1 mg tablet 1 mg PO DAILY PRN 12/20/21 12/27/21 Unknown cholecalciferol (vitamin D3) 50 50 mcg PO QAM 12/20/21 12/27/21 Unknown mcg (2,000 unit) tablet (Vitamin D3) duloxetine 20 mg capsule,delayed 20 mg PO QAM 12/20/21 12/27/21 Unknown release (Cymbalta) tamsulosin 0.4 mg capsule (Flomax) 0.4 mg PO HS 12/20/21 12/27/21 Unknown Additional Notes: Medication instruction list completed with [facility] instructions and was the packet provided to pt during visit. Past Medical History Medical History (Updated 12/27/21 @ 15:30 by Tania Stanford PA-C) Adrenal nodule stable on Ct, no additional testing Arteriosclerosis of coronary artery "cardiac catheterization performed 2006: Occlusion of the RCA and LAD. No intervention performed." per [place] [facility] records Chronic back pain Chronic obstructive pulmonary disease pt denies Chronic systolic congestive heart failure [place] [facility], EF 30% on 2010 echo per [place] [facility] [place] Degenerative disc disease Diabetic neuropathy bilateral legs/feet/RIGHT ARM NUMBNESS Dyslipidemia Essential tremor hands bilat History of colon polyps Hx of supraventricular tachycardia Hypertension controlled, stable per pt ICD (implantable cardioverter-defibrillator), single, in situ placed in 2007. checks remotely from home routinely. replaced ~2-3 years ago. follows with Dr. Hutchinson Ischemic cardiomyopathy EF 30% on 2011 echo per [place] [facility] records Myocardial Infarction hx (found on testing) Obesity, morbid Osteoarthritis of lumbar spine Solitary pulmonary nodule stable last CT 05/2018 Spinal stenosis Stone in kidney followed by Urology Type 2 diabetes mellitus with insulin therapy Varus deformity of knee Patient denies h/o stroke, seizures, blood clots or blood transfusions. Exercise / Class Metabolic Activity III < 4 Walking/Shop/Light housework (minimal walking per pt, denies CP or SOB) Past Family History Family History Father Parkinson disease Sister No problems noted. Unknown Colon cancer Coronary heart disease Anxiety disorder due to general medical condition with panic attack Brother Colon cancer Past Surgical History Surgical History (Updated 12/27/21 @ 15:30 by Tania Stanford PA-C) History of cardiac cath no stents. "cardiac catheterization performed 2006: Occlusion of the RCA and LAD. No intervention performed." per [place] [facility] records History of cardiac radiofrequency ablation no stents Hx of colonoscopy S/P internal cardiac defibrillator procedure Past Anesthesia History No Hx of Anesthesia Complications and No Family Hx of Anesthesia Complications History of PONV No Hx of PONV and No Hx of Motion Sickness Social History Smoking Status: Former smoker tobacco type: cigarettes Do You Dip or Chew Tobacco: No Smoking End Date: QUIT 6-7 YRS AGO Hx Alcohol Use: Yes Alcohol type: beer alcohol intake frequency: holidays/special occasions only Hx Substance Use: No Review of Systems Patient denies chest pain, shortness of breath, dyspnea on exertion, snoring, witnessed apneas, reflux, fever, chills, cough, wheezing, or palpitations. Physical Exam Vital Signs Vitals BP 138/86 P 78 TEMP 98.4 SP02 98% on RA RESP 17 Physical Full cervical extension range of motion without pain Full TMJ range of motion TMD 3 finger breaths Mallampati Score 3 Dentition: intact, missing left upper front tooth; denies chipped or loose teeth, caps/crowns or bridges Lungs: normal respiratory effort. Clear throughout to auscultation, no adventitious breath sounds Cardiac: regular rate and rhythm, no murmurs noted Carotid arteries: negative bruit bilat Extremities: 1+ pitting edema distal lower extremities bilat (nonerythematous, nontender) chronic per pt without change or worsening Lab Results Anesthesia Preop Results Results Anesthesia Widget: WBC 5.82 K/uL (4.8-10.8) 12/27/21 Hgb 15.4 g/dL (14.0-18.0) 12/27/21 Hct 44.5 % (42-52) 12/27/21 Plt 179 K/uL (130-400) 12/27/21 Na 139 mmol/L (136-145) 12/27/21 K 4.3 mmol/L (3.5-5.1) 12/27/21 Cl 102 mmol/L (98-107) 12/27/21 CO2 33 mmol/L (21-32) H 12/27/21 BUN 14 mg/dl (6-23) 12/27/21 Creat 0.83 mg/dl (0.6-1.4) 12/27/21 Glucose Level 271 mg/dl (70-99(Fasting)) H 12/27/21 PT 11.0 Seconds (9.0-12.0) 12/27/21 PTT 27.2 Seconds (21.0-31.0) 12/27/21 INR 1.0 (0.9-1.1) 12/27/21 HA1c 6.9 % (4.5-5.6) H 12/27/21 Blood Type O Positive 12/27/21 Antibody Screen NEGATIVE 12/27/21 Testing Electrocardiogram Date: 12/27/21 NSR, rate 82 bpm Low voltage QRS Inferior infarct (cited on or before 12/07/2007) Anterolateral infarct (cited on or before 12/07/2007) Chest X-Ray Date: 12/27/21 FINDINGS: No lines and tubes are seen. Cardiomegaly is noted. Faint bibasilar airspace opacities are seen. No evidence of pleural effusion or pneumothorax. IMPRESSION: Faint bibasilar airspace opacities are favored to represent atelectasis, although superimposed pneumonia, and/or aspiration cannot be excluded. Cardiomegaly is noted. Other Testing ICD report 10/18/2021 [employer] ICD, Model 0185 Lead type: RV Presenting rhythm: ventricular sensing Arrhythmic events: nonsustained VT, indeterminate SVT events Pacing mode: VVI
--- NOTE | 2021-12-27 12:22 | PAT Medication Instructions ---
Medication Instructions Date of Service December 27, 2021 Home Medications Medication Instructions Recorded Droplet Pen Needle 32 gauge x #400 ea NS 08/13/19 5/32" (pen needle, diabetic) BD Ultra-Fine Barbara Pen Needle 32 #400 ea NS 07/22/20 gauge x 5/32" (pen needle, diabetic) Accu-Chek Astrid Plus Meter #1 ea NS 12/16/20 (blood-glucose meter) Accu-Chek Astrid Plus test strp #400 ea NS 12/16/20 (blood sugar diagnostic) BD Alcohol Swabs (alcohol swabs) 4 pad TOPICAL DAILY 90 Days #400 12/16/20 ea NS spironolactone 25 mg tablet 25 mg PO QAM #90 tab 03/15/21 insulin aspart U-100 100 unit/mL 40 unit SQ DAILY 90 Days #45 ml 05/02/21 (3 mL) subcutaneous pen (Novolog Flexpen U-100 Insulin aspart) Accu-Chek Softclix Lancets #400 ea NS 07/04/21 (lancets) carvedilol 12.5 mg tablet 12.5 mg PO BID #180 tab 09/25/21 insulin glargine U-300 conc 300 42 unit SQ QAM #13.5 ml 09/25/21 unit/mL (1.5 mL) subcutaneous pen (Toujeo SoloStar U-300 Insulin) primidone 250 mg tablet 250 mg PO BID #180 tab 10/06/21 gabapentin 600 mg tablet 600 mg PO QID #360 tab 12/11/21 oxycodone 5 mg tablet See Rx Instructions PO BID PRN #30 12/19/21 tab acetaminophen 500 mg tablet 1,000 mg PO BID PRN ascorbic acid (vitamin C) 500 mg tablet 1,000 mg PO QAM aspirin 325 mg tablet 325 mg PO QAM multivitamin (Multiple Vitamins) 1 tab PO QAM Droplet Pen Needle 32 gauge x 5/32" (pen needle, diabetic) #400 ea NS cyanocobalamin (vitamin B-12) 500 mcg tablet (Vitamin B-12) 500 mcg PO DAILY BD Ultra-Fine Barbara Pen Needle 32 gauge x 5/32" (pen needle, diabetic) Accu-Chek Astrid Plus Meter (blood-glucose meter) Accu-Chek Astrid Plus test strp (blood sugar diagnostic BD Alcohol Swabs (alcohol swabs) 4 pad TOPICAL DAILY spironolactone 25 mg tablet 25 mg PO QAM insulin aspart U-100 100 unit/mL (3 mL) subcutaneous pen (Novolog Flexpen U-100 Insulin aspart) 40 unit SQ DAILY Accu-Chek Softclix Lancets (lancets) carvedilol 12.5 mg tablet 12.5 mg PO BID insulin glargine U-300 conc 300 unit/mL (1.5 mL) subcutaneous pen (Toujeo SoloStar U-300 Insulin) 42 unit SQ QAM primidone 250 mg tablet 250 mg PO BID gabapentin 600 mg tablet 600 mg PO QID oxycodone 5 mg tablet See Rx Instructions PO BID PRN atorvastatin 80 mg tablet 80 mg PO QAM bumetanide 1 mg tablet 1 mg PO DAILY PRN cholecalciferol (vitamin D3) 50 mcg (2,000 unit) tablet (Vitamin D3) 50 mcg PO QAM duloxetine 20 mg capsule,delayed release (Cymbalta) 20 mg PO QAM tamsulosin 0.4 mg capsule (Flomax) 0.4 mg PO HS Continue as directed gabapentin 600 mg tablet 600 mg PO QID ASK your prescriber and surgeon aspirin 325 mg tablet 325 mg PO QAM DO NOT take the morning of surgery insulin aspart U-100 100 unit/mL (3 mL) subcutaneous pen (Novolog Flexpen U-100 Insulin aspart) 40 unit SQ DAILY ascorbic acid (vitamin C) 500 mg tablet 1,000 mg PO QAM multivitamin (Multiple Vitamins) 1 tab PO QAM cyanocobalamin (vitamin B-12) 500 mcg tablet (Vitamin B-12) 500 mcg PO DAILY spironolactone 25 mg tablet 25 mg PO QAM bumetanide 1 mg tablet 1 mg PO DAILY PRN cholecalciferol (vitamin D3) 50 mcg (2,000 unit) tablet (Vitamin D3) 50 mcg PO QAM Take morning of surgery With a small sip of water, OTHERWISE NOTHING TO EAT OR DRINK AFTER MIDNIGHT: acetaminophen 500 mg tablet 1,000 mg PO BID PRN(okay to take up to 4 hours prior to surgery if needed) carvedilol 12.5 mg tablet 12.5 mg PO BID primidone 250 mg tablet 250 mg PO BID oxycodone 5 mg tablet See Rx Instructions PO BID PRN(okay to take up to 4 hours prior to surgery if needed) atorvastatin 80 mg tablet 80 mg PO QAM duloxetine 20 mg capsule,delayed release (Cymbalta) 20 mg PO QAM Take evening before surgery acetaminophen 500 mg tablet 1,000 mg PO BID PRN(if needed) carvedilol 12.5 mg tablet 12.5 mg PO BID primidone 250 mg tablet 250 mg PO BID oxycodone 5 mg tablet See Rx Instructions PO BID PRN(if needed) tamsulosin 0.4 mg capsule (Flomax) 0.4 mg PO HS Insulin Dependent Diabetic Patients * Test your blood sugar the morning of surgery * If Blood Sugar is GREATER THAN 150, take HALF of your regular dose of: insulin glargine U-300 conc 300 unit/mL (1.5 mL) subcutaneous pen (Toujeo SoloStar U- 300 Insulin)-21 unit SQ QAM * If Blood Sugar is LESS THAN 150, DO NOT TAKE ANY: insulin glargine U-300 conc 300 unit/mL (1.5 mL) subcutaneous pen (Toujeo SoloStar U-300 Insulin) Other Notes If you have any questions please call us at [phone] or [phone] or [phone] or [phone]
--- NOTE | 2022-02-01 16:31 | History & Physical Report ---
Date of Service February 01, 2022 Assessment & Plan (1) Degenerative joint disease of right hip: We will proceed with a right lateral total of arthroplasty. Postoperatively he will be started on aspirin for DVT prophylaxis and kept overnight in the hospital for postoperative medical management. He plans to have case management set up home health for him upon discharge. History of Present Illness Chief Complaint: Osteoarthritis of the right hip. Primary Care Provider: Tyler Miranda DO Mcbride is a pleasant 66-year-old male who had a severe injury to his left leg when he was young. He has developed a severe valgus deformity from that. He is not having any knee pain. Most of his pain is coming from his right hip. X- rays and clinical examination of been diagnostic for advanced osteoarthritis of the right hip. After failing years conservative treatment, he has elected to proceed with a right lateral total hip arthroplasty. Allergies Allergy/AdvReac Type Severity Reaction Status Date / Time sulfamethoxazole Allergy Intermediate kidney Verified 01/23/22 14:14 [From Bactrim] issues trimethoprim [From Bactrim] Allergy Intermediate kidney Verified 01/23/22 14:14 issues lisinopril AdvReac Unknown cough Verified 01/23/22 14:14 Home Medications Medication Instructions Recorded Confirmed Type acetaminophen 500 mg tablet 1,000 mg PO BID PRN #60 tab 05/13/19 01/23/22 History ascorbic acid (vitamin C) 500 mg 1,000 mg PO QAM tab 05/13/19 01/23/22 History tablet aspirin 325 mg tablet 325 mg PO QAM tab 05/13/19 01/23/22 History multivitamin (Multiple Vitamins) 1 tab PO QAM 05/13/19 01/23/22 History Droplet Pen Needle 32 gauge x #400 ea NS 08/13/19 01/10/22 Rx 5/32" (pen needle, diabetic) cyanocobalamin (vitamin B-12) 500 500 mcg PO DAILY 04/28/20 01/23/22 History mcg tablet (Vitamin B-12) BD Ultra-Fine Barbara Pen Needle 32 #400 ea NS 07/22/20 01/10/22 Rx gauge x 5/32" (pen needle, diabetic) Accu-Chek Astrid Plus Meter #1 ea NS 12/16/20 01/10/22 Rx (blood-glucose meter) BD Alcohol Swabs (alcohol swabs) 4 pad TOPICAL DAILY 90 Days #400 12/16/20 01/10/22 Rx ea NS insulin aspart U-100 100 unit/mL 40 unit SQ DAILY 90 Days #45 ml 05/02/21 01/23/22 Rx (3 mL) subcutaneous pen (Novolog Flexpen U-100 Insulin aspart) carvedilol 12.5 mg tablet 12.5 mg PO BID #180 tab 09/25/21 01/23/22 Rx insulin glargine U-300 conc 300 42 unit SQ QAM #13.5 ml 09/25/21 01/23/22 Rx unit/mL (1.5 mL) subcutaneous pen (Toujeo SoloStar U-300 Insulin) primidone 250 mg tablet 250 mg PO BID #180 tab 10/06/21 01/23/22 Rx gabapentin 600 mg tablet 600 mg PO QID #360 tab 12/11/21 01/23/22 Rx atorvastatin 80 mg tablet 80 mg PO QAM 12/20/21 01/23/22 History bumetanide 1 mg tablet 1 mg PO DAILY PRN 12/20/21 01/23/22 History cholecalciferol (vitamin D3) 50 50 mcg PO QAM 12/20/21 01/23/22 History mcg (2,000 unit) tablet (Vitamin D3) duloxetine 20 mg capsule,delayed 20 mg PO QAM 12/20/21 01/23/22 History release (Cymbalta) tamsulosin 0.4 mg capsule (Flomax) 0.4 mg PO HS 12/20/21 01/23/22 History mirabegron 25 mg tablet,extended 25 mg PO DAILY #90 tab 01/10/22 01/23/22 Rx release 24 hr (Myrbetriq) Accu-Chek Astrid Plus test strp #400 ea NS 01/15/22 Rx (blood sugar diagnostic) Accu-Chek Softclix Lancets #400 ea NS 01/15/22 Rx (lancets) spironolactone 25 mg tablet 25 mg PO QAM #90 tab 01/15/22 01/23/22 Rx celecoxib 200 mg capsule (Celebrex) 200 mg PO BID #28 cap 01/31/22 Rx oxycodone 5 mg tablet See Rx Instructions PO BID PRN #30 01/31/22 Rx tab oxycodone-acetaminophen 5 mg-325 1 tab PO Q6H PRN #30 tab 01/31/22 Rx mg tablet (Percocet) Past Med/Surg History Medical History Adrenal nodule stable on Ct, no additional testing Arteriosclerosis of coronary artery "cardiac catheterization performed 2006: Occlusion of the RCA and LAD. No intervention performed." per [place] [facility] records Chronic back pain Chronic obstructive pulmonary disease pt denies Chronic systolic congestive heart failure [facility], EF 30% on 2010 echo per [place] [facility] records Degenerative disc disease Diabetic neuropathy bilateral legs/feet/RIGHT ARM NUMBNESS Dyslipidemia Essential tremor hands bilat History of colon polyps Hx of supraventricular tachycardia Hypertension controlled, stable per pt ICD (implantable cardioverter-defibrillator), single, in situ placed in 2007. checks remotely from home routinely. replaced ~2-3 years ago. follows with Dr. Hutchinson Ischemic cardiomyopathy EF 30% on 2010 echo per [place] [facility] records Myocardial Infarction hx (found on testing) Obesity, morbid Osteoarthritis of lumbar spine Solitary pulmonary nodule stable last CT 05/2018 Spinal stenosis Stone in kidney followed by Urology Type 2 diabetes mellitus with insulin therapy Varus deformity of knee Surgical History History of cardiac cath no stents. "cardiac catheterization performed 2006: Occlusion of the RCA and LAD. No intervention performed." per [place] [facility] records History of cardiac radiofrequency ablation no stents Hx of colonoscopy S/P internal cardiac defibrillator procedure Family History Father Parkinson disease Sister No problems noted. Unknown Colon cancer Coronary heart disease Anxiety disorder due to general medical condition with panic attack Brother Colon cancer Social History Smoking Status: Former smoker Second Hand Exposure: Yes (SPOUSE SMOKES); Hx Alcohol Use: Yes Alcohol type: beer Hx Substance Use: No Preferred Language: Upper Sorbian Communication Ability: Effective Visual Impairment: No Limitations Hearing Ability: Normal Picker Feeder Required: No Beliefs That Will Affect Care: None marital status: Current Living Situation: Spouse and Family Current Living Situation Comment: Lives with and grandson & granddaughter current occupational status: unemployed and disabled Feels Safe at Home: Yes Childhood Exposure to Second-Hand Smoke: No caffeine: No Dental Care, Regularly: No Physical Activity Frequency: Does not Exercise Seatbelt Use: sometimes Sunscreen Use: No Assistive Devices: Cane and Glasses Review of Systems All systems reviewed & are unremarkable except as noted in HPI & below. Physical Exam On physical examination of his right hip, he has significant pain with forced internal and external rotation. He ambulates with a cane due to the deformity of his left leg. All of his pain is located in his right groin. Constitutional WD/WN, vitals as above Eyes PERRL, conjunctivae normal, anicteric sclerae ENMT external ear and nose normal, oropharynx normal Neck trachea midline, no thyromegaly Respiratory normal respiratory effort Cardiovascular RRR, no murmur, no edema Gastrointestinal (Abdomen) normal bowel sounds, soft, nontender, no hepatosplenomegaly Psychiatric A+Ox3, euthymic affect Results & Data Results & Data Laboratory Results . Diagnostic Findings X-rays of the right hip show advanced osteoarthritis with joint space narrowing, osteophyte formation, and [id number] articulation. PG Care Time/CCT Total # of Minutes Spent Total Time Spent with Patient: Total time spent is greater than 50% in coordination of care (as documented) at patient's floor/unit and/or counseling patient: Coding Level of Care Code None Diagnoses Degenerative joint disease of right hip M16.11
[~2022-02-05 08:55] MED LIST changes: -ACET-1256 PO; +ACETAMINOPHEN 500 MG TAB PO SCH; -ASCO10003 PO; -ASPECOTC PO; -BUME2TAB3 PO; +BUPIVACAINE 0.5 % 5 MG/1 ML PF 10ML VIAL ONE; -CARV12.52 PO; +FAMOTIDINE 20 MG TAB PO SCH; +GABAPENTIN 300 MG CAP PO SCH; -GLC/500 PO; -INSU1.2I SQ; +Ketorolac (*for OR use only*) 30 MG, dexAMETHasone 4 MG, KETAMINE HCL (**OR use only) 1... INFIL SCH; -LOSA50TA54 PO; +LR 15ML/HR IV SCH; +LR 60ML/HR IV SCH; -MULTTAB58 PO; -NVLGI/PEN SQ; -PRIM50TA29 PO; -SIMV40TA4 PO; -SPIR25TA5 PO; -TRAM-10 PO; +TRANEXAMIC ACID 1,000 MG **IV Intra-op IV SCH; +TRANEXAMIC ACID 1,000 MG **IV Pre-op IV SCH; +dexAMETHasone 4 MG TAB PO SCH
[2022-02-05] MEDS ORDERED: fentaNYL citrate 100 MCG/2 ML VIAL IV PRN (10:04)
[2022-02-05] MEDS ORDERED: ePHEDrine sulfate 50 MG/ML AMP IV PRN (10:04)
[2022-02-05] MEDS ORDERED: ATROPINE SULFATE 0.1 MG/ML 10ML SYR IV PRN (10:04)
[2022-02-05] MEDS ORDERED: ONDANSETRON INJ 2 MG/ML 2 ML VIAL IV PRN ×2 (10:04→15:33)
[2022-02-05] MEDS ORDERED: HYDROmorphone INJ 2 MG/ML SYR/VIAL IV PRN (10:04)
[2022-02-05] MEDS ORDERED: fentaNYL citrate 100 MCG/2 ML VIAL ONE (10:13)
[2022-02-05] MEDS ORDERED: MIDAZOLAM HCL 1 MG/ML 2ML VIAL ONE (10:14)
--- NOTE | 2022-02-05 10:35 | History & Physical Bridge Note ---
Date of Service February 05, 2022 History & Physical Bridge Note I have examined the patient, reviewed the History & Physical and in the interval since the performance of the History & Physical I have noted the following changes of clinical significance: no changes noted
[2022-02-05] MEDS ORDERED: ORTHO JOINT ANESTHETIC ONE (11:19)
[2022-02-05] MEDS ORDERED: PHENYLEPHRINE HCL 10 MG/ML VIAL ONE (12:18)
[2022-02-05] MEDS ORDERED: PROPOFOL IV EMULSION 10 MG/ML 20 ML VIAL IV ONE ×2 (12:18→13:39)
[2022-02-05] MEDS ORDERED: KETAMINE 50 MG/5 ML SYRINGE ONE (13:02)
--- NOTE | 2022-02-05 13:19 | XRay Report ---
XR hip RT 1V HISTORY: 66 years-old Male RT XTL FILM IN OR right hip total joint arthroplasty COMPARISON: Right hip radiographs 06/27/2020 TECHNIQUE: One view of the right hip FINDINGS: Right hip total joint arthroplasty demonstrates satisfactory alignment. Corticated ossifications are noted lateral to the right acetabulum and femoral neck. Expected postoperative soft tissue swelling w ith deep tissue air. Arterial calcifications. No acute fracture or unexpected opaque foreign body. Le ads are noted overlying the right proximal femur is midline pelvis, likely external to the patient. IMPRESSION: Satisfactory alignment of the right hip total joint arthroplasty. ACT 112: Negative or not required by law. The above report was generated using voice recognition software. It may contain grammatical, syntax o r spelling errors. Electronically signed by: Peter Lopez M.D. 02/05/2022 1:18 PM
--- NOTE | 2022-02-05 13:39 | Operative Report ---
PG Post Operative Report Pre & Post Diagnosis Operation Date: 02/05/22 11:20 Pre-Op Diagnosis: Degenerative Joint Disease Right Hip Post-Op Diagnosis: Degenerative Joint Disease Right Hip I identified the patient and participated in the time-out.: Yes Procedure Operation Date: 02/05/22 11:20 Actual Procedures p Right Lateral Total Hip Arthroplasty(Right) - Tyler Wu DO Surgeon Tyler Wu DO Dehydrator Operator Tyler Turner PAC Estimated Blood Loss 300 Findings Consistent with Post-Op Diagnosis Specimens Right femoral head Complications none Disposition Disposition: Recovery Room Indications Reed is a pleasant 66-year-old male who is been doing with chronic increasing right hip and groin pain. X-rays and clinical examination have been diagnostic for advanced osteoarthritis of the right hip. After failing conservative treatment, he elected proceed with a right lateral total hip arthroplasty. Description of Procedure Implants used I used a [employer] total hip arthroplasty system with a size 3 standard offset Avenir Complete stem, a 52mm G7 cup with a 25mm screw, an E1 polyethylene liner, a 36mm ceramic head with a 0 neck. Reed arrived at the hospital for the above procedure. He was seen in the preoperative holding area and the operative extremity was identified and signed. He was given a spinal anesthetic, a preoperative antibiotic, and TXA. He was then taken back to the operating room and laid on the table in the supine position. He was given basic sedation. He was then placed in the lateral decubitus position. The hip was then prepped and draped in sterile fashion. A timeout was done and the patient and the operative extremity was properly identified. A lateral approach was used. Dissection was taken down through the fat layer and the IT band was exposed. The IT band was then incised. The abductors were then exposed. The anterior third of the abductors were then tenotomized off the greater trochanter. The capsule was then excised. The hip was then dislocated out of the joint. The femoral neck was then resected and the head was removed. The acetabulum was then exposed. Time was spent doing a complete circumferential capsular labral release. Sequential reaming of the acetabulum was done up to a size 51 reamer. A size 52 acetabulum was then impacted into place. A manhole cover was placed followed by a single 25 mm screw. The polyethylene liner was then snapped into place. The proximal femur was then exposed. Sequential broaching up to a size 3 broach was done. A standard femoral neck was placed with a 0 head. The hip was then reduced. A single flat plate x-ray was taken and I was happy with the overall alignment of the implants. The hip was brought through full range of motion and felt to be stable. The hip was then dislocated. The femoral broach was then removed. The final size 3 standard offset stem was then impacted into place. A 36 mm ceramic head with a 0 neck was then impacted into place. The hip was then reduced. The hip was brought through a full range of motion and felt to be stable. The wound was then irrigated with 3 L of normal saline solution. The abductors were then tenodesed back to the greater trochanter with transosseous FiberWire sutures and side to side sutures. The IT band was then closed with #1 Vicryl suture. The deep fat layer was closed with 2-0 Vicryl. Skin was closed with 2-0 Vicryl and hector. He was then placed in a soft compressive dressing. He was then transferred to a hospital bed and taken to the postanesthesia care unit in stable condition. He tolerated the procedure well. Tyler Turner PA-C, was present for the entire procedure. He was critical for patient positioning, prepping, draping, retraction exposure, wound closure and application of sterile dressing. I attest to the content of the Intraoperative Record and any orders documented therein. Any exceptions are noted below.
--- NOTE | 2022-02-05 14:20 | Anesthesiology Progress Note ---
Date of Service February 05, 2022 Anesthesia Post Procedure Vital Signs Vital Signs: Temp Pulse Pulse Resp BP Pulse Ox 02/05/22 14:10 69 14 124/66 96 02/05/22 14:00 71 14 121/68 97 02/05/22 13:50 37.3 C 73 14 105/59 L 100 02/05/22 09:41 36.8 C 88 18 145/85 H 99 Transfer of Care Handoff Completed per policy Notes Mental Status: alert / awake / arousable and participated in evaluation Patient Amnestic to Procedure: Yes Nausea / Vomiting: adequately controlled Pain: adequately controlled Airway Patency, RR, SpO2: stable & adequate BP & HR: stable & adequate Hydration State: stable & adequate Anesthetic Complications: no major complications apparent and Pt Satisfied with anesthetic care
--- NOTE | 2022-02-05 14:22 | XRay Report ---
XR hip 1V RT w pelvis HISTORY: 66 years-old Male IN PACU - A/P PELVIS and LATERAL HIP right hip total joint arthroplasty COMPARISON: Right hip radiographs of same day at 11:44 AM TECHNIQUE: AP view of the pelvis with frog-leg view of the right hip FINDINGS: Right hip total joint arthroplasty demonstrates satisfactory alignment without acute fracture. Latera l skin hector are noted along with expected postoperative soft tissue swelling with deep tissue air. Arterial calcifications. Moderate left hip osteoarthritis. IMPRESSION: Right hip total joint arthroplasty with expected postoperative changes. ACT 112: Negative or not required by law. The above report was generated using voice recognition software. It may contain grammatical, syntax o r spelling errors. Electronically signed by: Peter Lopez M.D. 02/05/2022 2:21 PM
[2022-02-05] MEDS ORDERED: BUMETANIDE 1 MG TAB PO PRN (15:33)
[2022-02-05] MEDS ORDERED: HYDROmorphone INJ 0.5 MG/0.5 ML SYR IV PRN (15:33)
[2022-02-05] MEDS ORDERED: NALOXONE HCL 0.4 MG/1 ML VIAL/CARP IV PRN (15:33)
[2022-02-05] MEDS ORDERED: METOCLOPRAMIDE HCL INJ 5 MG/ML 2 ML VIAL IV PRN (15:33)
[2022-02-05] MEDS ORDERED: PHARMACY GLYCEMIC MGMT CONSULT PRN (15:33)
[2022-02-05] MEDS ORDERED: bisacodyL 10 MG SUPP PR PRN (15:33)
[2022-02-05] MEDS ORDERED: MAGNESIUM HYDROXIDE SUSP 30 ML UDC PO PRN (15:33)
[2022-02-05] MEDS: SODIUM CHLORIDE 0.9% 1000ML 1,000 ML IV SCH ×2 (15:38→23:09)
[2022-02-05] MEDS: ACETAMINOPHEN 500 MG TAB PO SCH ×2 (16:00→21:53)
[2022-02-05] MEDS ORDERED: GLUCOSE 40% GEL 15 GM TUBE PO PRN (16:15)
[2022-02-05] MEDS ORDERED: DEXTROSE 50% 50 ML SYRINGE IV PRN (16:15)
[2022-02-05] MEDS ORDERED: GLUCAGON FOR INJ 1 MG VIAL IM PRN (16:15)
[2022-02-05] MEDS ORDERED: GLUCOSE 10 TABS/TUBE PO PRN (16:15)
[2022-02-05] MEDS ORDERED: CARBOHYDRATES FOR HYPOGLYCEMIA PO PRN (16:15)
[2022-02-05] MEDS ORDERED: INSULIN ASPART 100 UNITS/ML 3 ML PEN SC SCH (16:30)
[2022-02-05] MEDS: KETOROLAC 30 MG/ML VIAL IV SCH ×2 (17:20→23:03)
[2022-02-05] MEDS: GABAPENTIN 600 MG TAB PO SCH ×2 (17:20→20:12)
[2022-02-05] MEDS: INSULIN ASPART PER UNIT SC SCH ×2 (17:38→21:41)
[2022-02-05] MEDS: oxyCODONE HCL IR 5 MG TAB (IMMEDIATE RELEASE) PO PRN (19:58)
[2022-02-05] MEDS: ceFAZolin 2000MG 2,000 MG/15 ML SYR IV SCH (20:11)
[2022-02-05] MEDS: DOCUSATE SODIUM 100 MG CAP PO SCH (20:12)
[2022-02-05] MEDS: PRIMIDONE 250 MG TAB PO SCH (20:13)
[2022-02-05] MEDS: carvediloL 12.5 MG TAB PO SCH (20:13)
[2022-02-05] MEDS: ASPIRIN 81 MG ECTAB PO SCH (20:14)
[2022-02-05] MEDS ORDERED: SENNA 8.6 MG TAB PO SCH (21:00)
[2022-02-05] MEDS ORDERED: TAMSULOSIN HCL 0.4 MG CAP PO SCH (21:00)
[2022-02-05] MEDS ORDERED: INSULIN GLARGINE SOLOSTAR 100 UNITS/ML 3 ML PEN SC ONE (21:00)
[2022-02-06] MEDS: KETOROLAC 30 MG/ML VIAL IV SCH ×2 (05:33→12:18)
[2022-02-06] MEDS: ceFAZolin 2000MG 2,000 MG/15 ML SYR IV SCH (05:33)
[2022-02-06] MEDS: ACETAMINOPHEN 500 MG TAB PO SCH ×2 (05:34→13:42)
[2022-02-06 05:43] LABS: Basophils # (auto) 0.02 K/uL (0-0.2); Basophils % (auto) 0.3 %; Eosinophils # (auto) 0.04 K/uL (0-0.5); Eosinophils % (auto) 0.5 %; Hematocrit (blood only) 40.2 % (42-52); Hemoglobin 13.3 g/dL (14.0-18.0); Immature Granulocytes # (auto) 0.02 K/uL (0.00-0.02); Immature Granulocytes % (auto) 0.3 %; Lymphocytes % (auto) 25.1 %; Mean Corpuscular Hemoglobin 32.4 pg (25-34); Mean Corpuscular Hgb Conc 33.1 g/dL (32-36); Mean Platelet Volume 9.7 fL (7.4-10.4); Monocytes # (auto) 0.88 K/uL (0.11-0.59); Neutrophils # (auto) 5.01 K/uL (1.4-6.5); Neutrophils % (auto) 62.8 %; Platelet Count 159 K/uL (130-400); RDW Coefficient of Variation 14.4 % (11.5-14.5); RDW Standard Deviation 51.4 fL (36.4-46.3); White Blood Count 7.97 K/uL (4.8-10.8)
[2022-02-06 06:01] LABS: BUN Creatinine Ratio 28.7 (10-20); Calcium 7.7 mg/dl (8.5-10.1); Creatinine Clr Calc Pharmacy 94.6 ml/min; Est GFR (African American) 105.7 ml/min; Est GFR (Non-African American) 91.2 ml/min; Potassium 3.8 mmol/L (3.5-5.1)
--- NOTE | 2022-02-06 06:56 | Orthopedic Progress Note ---
Date of Service February 06, 2022 Assessment & Plan (1) Status post right hip replacement: Overall is doing fairly well. Is not having much pain in the right hip. He will be seen by physical therapy today for ambulation and range of motion exercises. He understands the precautions. He is on aspirin for DVT prophylaxis. If he does real well with physical therapy today he can be discharged home. However, if he is ambulating a little bit slowly I certainly do not mind keeping him an extra day. We will see how he does. Aiden Mcbride was seen and examined at bedside this morning. Overall is doing fairly well. He is really not having much pain in the right hip. He has been ambulating to a chair. He has no complaints. . Review of Systems All systems reviewed & are unremarkable except as noted in HPI & below. Physical Exam On physical examination of the right hip, the dressing is clean and dry. He has active dorsiflexion plantarflexion of his right ankle. . Results & Data Results & Data Laboratory Results . Diagnostic Findings Postoperative x-rays of the right hip show the prosthesis to be in anatomic alignment without any evidence of fracture, desiccation, or loosening . PG Care Time/CCT Total # of Minutes Spent Total Time Spent with Patient: Total time spent is greater than 50% in coordination of care (as documented) at patient's floor/unit and/or counseling patient: Coding Level of Care Code 36116 Post Operative Follow-Up Diagnoses Status post right hip replacement Z96.641
[2022-02-06] MEDS: GABAPENTIN 600 MG TAB PO SCH ×2 (08:40→12:17)
[2022-02-06] MEDS: DOCUSATE SODIUM 100 MG CAP PO SCH (08:41)
[2022-02-06] MEDS: PRIMIDONE 250 MG TAB PO SCH (08:41)
[2022-02-06] MEDS: ASPIRIN 81 MG ECTAB PO SCH (08:42)
[2022-02-06] MEDS: carvediloL 12.5 MG TAB PO SCH (08:42)
[2022-02-06] MEDS: INSULIN ASPART PER UNIT SC SCH ×2 (08:54→12:24)
[2022-02-06] MEDS ORDERED: MULTIVITAMIN TAB PO SCH (09:00)
[2022-02-06] MEDS ORDERED: ATORVASTATIN 40 MG TAB PO SCH (09:00)
[2022-02-06] MEDS ORDERED: DULoxetine HCL 20 MG CAP PO SCH (09:00)
[2022-02-06] MEDS ORDERED: SPIRONOLACTONE 25 MG TAB PO SCH (09:00)
[2022-02-06] MEDS: oxyCODONE HCL IR 5 MG TAB (IMMEDIATE RELEASE) PO PRN (10:49)
--- NOTE | 2022-02-06 13:38 | Pharmacy Report ---
Pharmacy Glycemic Short Note 2 - Date of Service February 06, 2022 - Glycemic Short BSG Results (Last 24 hours): 02/05/22 02/05/22 02/06/22 13:52 20:42 05:17 Glucose 88 POC Glucose 85 162 H 02/06/22 02/06/22 08:04 11:57 Glucose POC Glucose 80 98 OUTPATIENT ANTIDIABETIC REGIMEN: * Lantus 42 units daily * Novolog 40 units with one meal * HbA1C = 6.9% (12/27/21) ASSESSMENT: * Patient's BSGs yesterday were 591-56-03-162 mg/dL. Today's BSGs are 80-98 mg/dL. * Patient received 28 units of insulin yesterday (20 units of basal and 8 units of bolus) * Fasting is trending down so reduce basal by 20%. * Loosened Novolog slightly since steroid hyperglycemia should be resolving. PLAN FOR INPATIENT GLYCEMIC CONTROL: * Basal insulin * Lantus 15 units SQ HS * Bolus insulin * NovoLog per scale ACHS or Q6hrs while NPO * Goal Range: Low 110 mg/dL - High 140 mg/dL * Correction Factor: 30 mg/dL/unit * Nutritional / Prandial insulin per carb ratio of 1 unit per 10 grams CHO consumed
[2022-02-06] MEDS ORDERED: INSULIN GLARGINE SOLOSTAR 100 UNITS/ML 3 ML PEN SC SCH (21:00)
--- NOTE | 2022-02-13 06:13 | Discharge Summary ---
Date of Service February 13, 2022 Admission HPI (Per Admitting) Reed is a pleasant 66-year-old male who had a severe injury to his left leg when he was young. He has developed a severe valgus deformity from that. He is not having any knee pain. Most of his pain is coming from his right hip. X- rays and clinical examination of been diagnostic for advanced osteoarthritis of the right hip. After failing years conservative treatment, he has elected to proceed with a right lateral total hip arthroplasty. Admission Exam (Per Admitting) On physical examination of his right hip, he has significant pain with forced internal and external rotation. He ambulates with a cane due to the deformity of his left leg. All of his pain is located in his right groin. Principal Diagnosis Same as "Discharge Diagnosis" noted below under Discharge Instructions. Discharge Exam On physical examination of the right hip, the dressing is clean and dry. He has active dorsiflexion plantarflexion of his right ankle. . Discharge Data Procedures Performed Operation Date: 02/05/22 11:20 Actual Procedures p Right Lateral Total Hip Arthroplasty(Right) - Tyler Wu DO Hospital Course (1) Status post right hip replacement: On February 05, 2022 Reed arrived at [facility] and underwent a right hip replacement without complication. He had a spinal anesthetic. Postoperatively he was started on aspirin for DVT prophylaxis and transferred to the general orthopedic floors. His hospital course was uneventful. Postop day #1 his vital signs were stable and his pain was well controlled. He was able to participate well with physical therapy doing ambulation and range of motion exercises. He was then discharged home. He will follow-up with orthopedics in 2 weeks. PG Care Time/CCT Total # of Minutes Spent Total Time Spent with Patient: Total time spent is greater than 50% in coordination of care (as documented) at patient's floor/unit and/or counseling patient: Discharge Plan Discharge Items Patient Disposition: Home - Home Health Services Reason For Visit: DJD Right Hip Discharge Diagnosis: Right hip replacement Activity: As commented below Non-emergency contact: Surgeon Call non-emergency contact if: your wound has increased redness and your wound has increased drainage Follow-up/Referrals: Tyler Miranda DO [Primary Care Provider] - Diet: Carb Count or DM1 Addtl Attending Provider Instructions: Activity and Therapy Recommendations: * If you are using [facility] then therapy will be provided at your home until they feel you have accomplished all of your goals. * If you are using [facility] then Physical Therapy will be provided until they feel you are ready to start Outpatient Physical Therapy. * If you are not using home therapy then Outpatient Physical Therapy should start about 3-5 days from your day of surgery. Therapy will last about 6-10 weeks * You were shown a series of exercises in the hospital. Do these exercises three times each day including the exercises you were shown in physical therapy. * Get up and walk several times each day.~ For the first four weeks, try not to stand or walk for more than one hour at a time. If you do stand or walk for more than one hour, you will not hurt anything, but your leg will likely swell.~~ * As you feel comfortable, you may change from the walker or crutches to a cane and~then to independent walking. Medications: * Narcotic You will likely be sent home from the hospital with a prescription for the narcotic pain medication that worked best throughout your stay. * Aspirin Most patients will be required to take Aspirin 81mg twice a day for 6 weeks after surgery. This is obtained [id number] and a prescription is not necessary. * Other medications may be prescribed for specific circumstances. If you have any questions, please call the office at . * Resume previous home medications unless otherwise instructed TEDs/Elastic Stockings: The white elastic stockings help limit swelling and prevent blood clots from forming in your legs. The more you wear them, the more they work. Wear them for six weeks. Dressing Care: Leave the Silverlon dressing in place for 7 days. After 7 days you may remove the dressing. If the incision is not draining then you may leave the hector open to air. If there is a little bit of drainage or if the hector are getting stuck on your clothing then cover the incision with a dry dressing. The hector will be removed at your 2 week follow-up appointment. Showering: You may shower with the Silverlon dressing in place. Do not let the shower spray hit the dressing directly. Pat the Silverlon dressing dry. If the dressing becomes wet underneath, then simply remove the dressing. Keep the incision dry until you are 7 days out from the day of surgery. After 7 days you may remove the Silverlon dressing and shower with the hector exposed. Let soapy water run over the hector and pat them dry. Do not scrub or soak the incision. Things To Watch For: * Drainage from the incision site that occurs more than one week after your surgery. * Increased redness at the incision site. * Fever above 102 degrees Fahrenheit. * Unusual chest pain or shortness of breath. * Call [facility] at with any of the above problems Follow-Up Visit: Follow-up with Dr. Wu's PA (Tyler Turner) 2-3 weeks after your day of surgery. He will remove your hector and answer any questions. If you have any additional questions or concerns, Dr Wu is usually in the office at the same time and will be available An appointment was probably scheduled when you signed-up for surgery in the office. If you have any questions call Office Instructions: More detailed instructions as well as Frequently Asked Questions were provided in a folder by our office when you signed-up for surgery. Please review these instructions when you get home. If you have any further questions or concerns, please feel free to call the office at [phone] Pending Studies at Discharge: No Stand-Alone Forms: [facility], [facility] Pain Management Medications and DC Order Prescriptions: Continued (DME) pen needle, diabetic [Droplet Pen Needle] 32 gauge x 5/32" needle See Dose Instructions .ROUTE .MEDSUPPLY Qty: 400 RF: 0 (DME) pen needle, diabetic [BD Ultra-Fine Barbara Pen Needle] 32 gauge x 5/32" needle See Dose Instructions .ROUTE .MEDSUPPLY Qty: 400 RF: 3 (DME) blood-glucose meter [Accu-Chek Astrid Plus Meter] [facility] See Rx Instructions .ROUTE .MEDSUPPLY Qty: 1 RF: 0 alcohol swabs [BD Alcohol Swabs] Pads, Medicated 4 pad topical DAILY 90 Days Qty: 400 RF: 3 Novolog Flexpen U-100 Insulin 100 unit/mL (3 mL) insulin pen 40 unit SQ DAILY 90 Days Qty: 45 RF: 3 carvedilol 12.5 mg tablet 12.5 mg PO BID Qty: 180 RF: 3 Toujeo SoloStar U-300 Insulin 300 unit/mL (1.5 mL) insulin pen 42 unit SQ QAM Qty: 13.5 RF: 1 primidone 250 mg tablet 250 mg PO BID Qty: 180 RF: 1 gabapentin 600 mg tablet 600 mg PO QID Qty: 360 RF: 0 (DME) Accu-Chek Astrid Plus test strp Strip See Rx Instructions .ROUTE .MEDSUPPLY Qty: 400 RF: 3 (DME) lancets [Accu-Chek Softclix Lancets] Misc See Rx Instructions .Route Qty: 400 RF: 3 spironolactone 25 mg tablet 25 mg PO QAM Qty: 90 RF: 3 oxycodone 5 mg tablet See Rx Instructions PO BID PRN (Reason: pain) Qty: 30 RF: 0 oxycodone-acetaminophen [Percocet] 5-325 mg tablet 1 tab PO Q6H PRN (Reason: pain) Qty: 30 RF: 0 celecoxib [Celebrex] 200 mg capsule 200 mg PO BID Qty: 28 RF: 0 aspirin 325 mg tablet 325 mg PO QAM RF: 0 multivitamin [Multiple Vitamins] tablet 1 tab PO QAM RF: 0 acetaminophen 500 mg tablet 1,000 mg PO BID PRN (Reason: Pain) Qty: 60 RF: 0 ascorbic acid (vitamin C) 500 mg tablet 1,000 mg PO QAM RF: 0 Myrbetriq 25 mg tablet extended release 24 hr 25 mg PO DAILY Qty: 90 RF: 3 cyanocobalamin (vitamin B-12) [Vitamin B-12] 500 mcg Tablet 500 mcg PO DAILY RF: 0 atorvastatin 80 mg tablet 80 mg PO QAM RF: 0 bumetanide 1 mg tablet 1 mg PO DAILY PRN (Reason: Fluid Retention) RF: 0 duloxetine [Cymbalta] 20 mg capsule,delayed release(DR/EC) 20 mg PO QAM RF: 0 tamsulosin [Flomax] 0.4 mg capsule 0.4 mg PO HS RF: 0 cholecalciferol (vitamin D3) [Vitamin D3] 50 mcg (2,000 unit) Tablet 50 mcg PO QAM RF: 0 Discharge Orders: Discharge Order (Routine); Ordered 02/06/22 Ordered By: Tyler Wu Admission Data Admit Date/Time: 02/05/22 13:49 Attending Provider: Tyler Wu Admit Provider: Tyler Wu Primary Care Provider: Tyler Miranda Other Providers: [facility],Home [facility] Other Interventions: Discharge Summary Assessment (RN) Last Done: 02/06/22 11:03
== END 2022-02-06 14:27 | disposition home health service (06) ==
LOC: 3E 08:55 → ASU 08:55
DX: Z88.8 Allergy status to other drugs, medicaments and biological substances; M65.9 Synovitis and tenosynovitis, unspecified; E66.01 Morbid (severe) obesity due to excess calories; Z95.810 Presence of automatic (implantable) cardiac defibrillator; J44.9 Chronic obstructive pulmonary disease, unspecified; Z79.4 Long term (current) use of insulin; Z79.82 Long term (current) use of aspirin; Z87.891 Personal history of nicotine dependence; Z79.1 Long term (current) use of non-steroidal anti-inflammatories (NSAID); Z88.2 Allergy status to sulfonamides; I50.22 Chronic systolic (congestive) heart failure; E78.5 Hyperlipidemia, unspecified; M16.11 Unilateral primary osteoarthritis, right hip; I25.2 Old myocardial infarction; E11.40 Type 2 diabetes mellitus with diabetic neuropathy, unspecified; I25.10 Atherosclerotic heart disease of native coronary artery without angina pectoris; Z79.899 Other long term (current) drug therapy; I11.0 Hypertensive heart disease with heart failure; Z68.43 Body mass index [BMI] 50.0-59.9, adult